=== PATIENT | female | born 1980 ===

== ENCOUNTER → 2020-09-17 10:54 | Outpatient (BNVA) | payer OTHER, SELFPAY | PROVIDERS: PCP Internal Medicine; Referring Provider Internal Medicine; Visit Provider Internal Medicine Endocrinology, Diabetes & Metabolism | DX: Z76.89 Persons encountering health services in other specified circumstances (principal) ==

== ENCOUNTER 2020-09-17 11:42 | Outpatient (REF) | payer OTHER, SELFPAY ==
[2020-09-17 14:22] LABS: Free T4 (Free Thyroxine) 1.02 ng/dL (0.71-1.85); Thyroid Stimulating Hormone 0.65 mIU/mL (0.32-4.0); Vitamin D 25-OH Total 28.7 ng/mL (>30)
== END 2020-09-17 11:43 | disposition home or self-care (01) ==
LOC: HO.10HDL 11:42
PROVIDERS: Visit Provider Internal Medicine Endocrinology, Diabetes & Metabolism
DX: E03.9 Hypothyroidism, unspecified (principal); E55.9 Vitamin D deficiency, unspecified
CPT/HCPCS: 82306; 84439; 84443

== ENCOUNTER 2020-11-17 07:26 | Outpatient (REF) | payer OTHER, SELFPAY ==
[2020-11-17 08:04] LABS: MANUAL DIFF FLAG NO
[2020-11-17 08:10] LABS: Basophils Percent Auto 0.6 % (0-2); Eosinophils Absolute Auto 0.2 X10*3/uL (0.0-0.4); Eosinophils Percent Auto 2.7 % (0-4); Hematocrit 39.2 % (37-47); Hemoglobin 13.8 g/dl (12.0-16.0); Imm Gran Abs Auto 0.04 X10*3/uL (0.00-0.03); Imm Gran Pct Auto 0.6 % (0.0-0.4); Immature Retic Fraction 11.7 % (3.0-15.9); Lymphocytes Absolute Auto 1.6 X10*3/uL (1.2-4.9); Lymphocytes Percent Auto 22.7 % (20-40); Mean Corpuscular HGB Conc 35.2 g/dl (31.0-35.0); Mean Corpuscular Hemoglobin 31.8 pg (27.0-33.0); Mean Corpuscular Volume 90.3 fL (80-98); Mean Platelet Volume 10.3 fL (9.4-12.3); Monocytes Absolute Auto 0.5 X10*3/uL (0.1-1.2); Monocytes Percent Auto 7.3 % (2-11); Neutrophils Absolute Auto 4.6 X10*3/uL (2.0-8.3); Neutrophils Percent Auto 66.1 % (45-73); Platelet Count 295 X10*3/uL (160-400); Red Blood Count 4.34 X10*6/uL (4.20-5.50); Retic HGB Equivalent 36.5 pg (30.0-35.0); Reticulocyte Percent 2.9 % (0.5-1.8); Reticulocytes Absolute 0.127 X10*6/uL (0.026-0.095)
[2020-11-17 08:24] LABS: Alanine Aminotransferase 15 U/L (0-31); Albumin Level 4.2 g/dL (3.5-5.0); Alkaline Phosphatase 56 U/L (39-117); Anion Gap 11 (12-20); Aspartate Amino Transferase 15 U/L (5-31); Bilirubin Total 0.8 mg/dL (0.0-1.0); Blood Urea Nitrogen 16 mg/dL (9-16); Calcium 8.8 mg/dL (8.4-10.2); Carbon Dioxide 28 mmol/L (22-29); Chloride 104 mmol/L (96-108); Cholesterol 166 mg/dL; Estimated Glomerular Filt Rate > 60; Glucose Random 86 mg/dL (60-115); HDL Cholesterol 42 mg/dL; Iron 120 mcg/dL (30-160); LDL Cholesterol Calculated 107 mg/dl; Percent Iron Saturation 31 % (15-50); Potassium 4.5 mmol/l (3.3-5.1); Sodium 138 mmol/L (135-145); Total Iron Binding Capacity 381 mcg/dL (228-428); Total Protein 6.8 g/dL (6.5-8.0); Triglycerides 87 mg/dL; Unsaturated Iron Binding 261 ug/dL
[2020-11-17 08:46] LABS: Ferritin 46 ng/mL (10-250); Vitamin D 25-OH Total 28.2 ng/mL (>30)
[2020-11-17 09:49] LABS: Folate 7.3 ng/mL (> or = 4.0); Vitamin B12 365 pg/mL (200-900)
== END 2020-11-17 07:27 | disposition home or self-care (01) ==
LOC: HO.LAB 07:26
PROVIDERS: Visit Provider Internal Medicine
DX: D50.9 Iron deficiency anemia, unspecified (principal); E78.00 Pure hypercholesterolemia, unspecified; M79.7 Fibromyalgia; B34.9 Viral infection, unspecified
CPT/HCPCS: 36415; 80053; 80061; 82306; 82607; 82728; 82746; 83540; 85025; 85045

== ENCOUNTER 2020-11-24 09:49 | Outpatient (REF) | payer OTHER, SELFPAY ==
--- NOTE | 2020-11-24 09:52 | MM_ITS ---
EXAMINATION: MM SCREENING DIGITAL BREAST TOMOSYNTHESIS, BILATERAL CLINICAL INFORMATION: Screening. Asymptomatic. The lifetime risk of breast cancer based on the Tyrer-Cuzick Model is 9%. COMPARISON: Mammography: 02/14/2018 (baseline) TECHNIQUE: Digital breast tomosynthesis is performed in both the craniocaudal and mediolateral oblique views along with computer-aided detection (CAD). Synthesized 2D images are generated from the tomosynthesis. FINDINGS: There are scattered areas of fibroglandular density (ACR BI-RADS breast composition Category b). There are no significant masses, abnormal calcifications, or other abnormalities. Parenchymal pattern is similar to prior study. There are no significant changes. MM/MM tomosynthesis screening BI IMPRESSION: There are no significant changes from prior study. ASSESSMENT: BI-RADS 1: Negative RECOMMENDATION: Routine annual mammography screening. This patient's information was entered into a reminder system with a target due date for their next mammogram.
== END 2020-11-24 09:50 | disposition home or self-care (01) ==
LOC: HO.MAMMO 09:49
PROVIDERS: PCP Internal Medicine; Visit Provider Internal Medicine
DX: Z12.31 Encounter for screening mammogram for malignant neoplasm of breast (principal)
CPT/HCPCS: 77063; 77067

== ENCOUNTER 2020-11-25 13:37 | Outpatient (REF) | payer OTHER, SELFPAY | END 2020-11-25 13:38 | disposition home or self-care (01) | LOC: HO.LAB 13:37 | PROVIDERS: PCP Internal Medicine; Visit Provider Internal Medicine | DX: Z20.828 Contact with and (suspected) exposure to other viral communicable diseases (principal) | CPT/HCPCS: C9803; U0003 ==

== ENCOUNTER 2021-01-17 11:17 | Outpatient (REF) | payer OTHER, SELFPAY ==
--- NOTE | ~2021-01-17 | XR_ITS ---
EXAMINATION: XR ANKLE, RIGHT XR FOOT, RIGHT CLINICAL INFORMATION: Pain joints right ankle and foot COMPARISON: Radiographs right ankle 01/18/2017 TECHNIQUE: 2 views right ankle, 2 views right foot, and a single combined lateral view of the right ankle and foot are performed. There are a total of 5 views. FINDINGS: The malleoli are intact and the ankle mortise is symmetric. The talar dome shows no osteochondral lesion. There is normal bony mineralization. There is no ankle or subtalar joint narrowing. The retrocalcaneal recess is preserved. There is a moderate posterior calcaneal spur. Prominent posterior process talus again seen with some adjacent spurring superior calcaneus. This may place patient at risk for impingement with plantar flexion. The midfoot and forefoot show no fracture or dislocation or arthropathy. There is small spurring dorsal lateral first metatarsal head without joint narrowing. No erosive changes. There is a hallux valgus, 22 degrees, on these nonweightbearing views. XR/XR foot RT min 3V IMPRESSION: 1. No fracture, dislocation, joint narrowing, or erosive change. 2. Moderate posterior calcaneal spur. 3. Prominent posterior process talus with small adjacent calcaneal spur. This may place patient at risk for impingement with plantar flexion. 4. Mild hallux valgus, 22 degrees ([id number]).
--- NOTE | ~2021-01-17 | XR_ITS ---
EXAMINATION: XR ANKLE, RIGHT XR FOOT, RIGHT CLINICAL INFORMATION: Pain joints right ankle and foot COMPARISON: Radiographs right ankle 01/18/2017 TECHNIQUE: 2 views right ankle, 2 views right foot, and a single combined lateral view of the right ankle and foot are performed. There are a total of 5 views. FINDINGS: The malleoli are intact and the ankle mortise is symmetric. The talar dome shows no osteochondral lesion. There is normal bony mineralization. There is no ankle or subtalar joint narrowing. The retrocalcaneal recess is preserved. There is a moderate posterior calcaneal spur. Prominent posterior process talus again seen with some adjacent spurring superior calcaneus. This may place patient at risk for impingement with plantar flexion. The midfoot and forefoot show no fracture or dislocation or arthropathy. There is small spurring dorsal lateral first metatarsal head without joint narrowing. No erosive changes. There is a hallux valgus, 22 degrees, on these nonweightbearing views. XR/XR ankle RT min 3V IMPRESSION: 1. No fracture, dislocation, joint narrowing, or erosive change. 2. Moderate posterior calcaneal spur. 3. Prominent posterior process talus with small adjacent calcaneal spur. This may place patient at risk for impingement with plantar flexion. 4. Mild hallux valgus, 22 degrees ([id number]).
== END 2021-01-17 11:18 | disposition home or self-care (01) ==
LOC: HO.HMGCX 11:17
PROVIDERS: PCP Internal Medicine; Visit Provider Hospitalist
DX: M25.571 Pain in right ankle and joints of right foot (principal)
CPT/HCPCS: 73610; 73630

== ENCOUNTER 2021-04-01 15:39 | Outpatient (REF) | payer OTHER, SELFPAY ==
[2021-04-01 17:28] LABS: Free T4 (Free Thyroxine) 0.91 ng/dL (0.71-1.85); Thyroid Stimulating Hormone 1.52 uIU/mL (0.32-4.0)
== END 2021-04-01 15:40 | disposition home or self-care (01) ==
LOC: HO.LAB 15:39
PROVIDERS: PCP Internal Medicine; Visit Provider Internal Medicine Endocrinology, Diabetes & Metabolism
DX: E55.9 Vitamin D deficiency, unspecified (principal)
CPT/HCPCS: 36415; 84439; 84443

== ENCOUNTER → 2021-04-04 08:31 | Outpatient (BNVA) | payer OTHER, SELFPAY | PROVIDERS: PCP Internal Medicine; Referring Provider Internal Medicine; Visit Provider Internal Medicine Endocrinology, Diabetes & Metabolism ==

== ENCOUNTER 2021-10-19 08:38 | Outpatient (REF) | payer OTHER, SELFPAY ==
[2021-10-19 08:47] LABS: MANUAL DIFF FLAG NO
[2021-10-19 09:42] LABS: Basophils Percent Auto 0.6 % (0-2); Eosinophils Absolute Auto 0.2 X10*3/uL (0.0-0.4); Eosinophils Percent Auto 2.2 % (0-4); Hematocrit 34.3 % (37.0-47.0); Hemoglobin 11.6 g/dl (12.0-16.0); Imm Gran Abs Auto 0.03 X10*3/uL (0.00-0.03); Imm Gran Pct Auto 0.4 % (0.0-0.4); Immature Retic Fraction 22.4 % (3.0-15.9); Lymphocytes Absolute Auto 1.5 X10*3/uL (1.2-4.9); Lymphocytes Percent Auto 22.5 % (20-40); Mean Corpuscular HGB Conc 33.8 g/dl (31.0-35.0); Mean Corpuscular Hemoglobin 27.2 pg (27.0-33.0); Mean Corpuscular Volume 80.5 fL (80.0-98.0); Mean Platelet Volume 10.8 fL (9.4-12.3); Monocytes Absolute Auto 0.5 X10*3/uL (0.1-1.2); Monocytes Percent Auto 7.2 % (2-11); Neutrophils Absolute Auto 4.6 x10*3/uL (2.0-8.3); Neutrophils Percent Auto 67.1 % (45-73); Platelet Count 336 X10*3/uL (160-400); Red Blood Count 4.26 X10*6/uL (4.20-5.50); Red Cell Distribution Width 15.2 % (11.0-16.0); Reticulocyte Percent 2.5 % (0.5-1.8); Reticulocytes Absolute 0.107 X10*6/uL (0.026-0.095); White Blood Count 6.8 X10*3/uL (4.8-10.8)
[2021-10-19 10:04] LABS: Alanine Aminotransferase 15 U/L (0-31); Albumin Level 4.1 g/dL (3.5-5.0); Alkaline Phosphatase 69 U/L (39-117); Anion Gap 11 (12-20); Aspartate Amino Transferase 13 U/L (5-31); Bilirubin Total 0.2 mg/dL (0.0-1.0); Blood Urea Nitrogen 13 mg/dL (9-16); Calcium 8.6 mg/dL (8.4-10.2); Carbon Dioxide 26 mmol/L (22-29); Chloride 107 mmol/L (96-108); Cholesterol 177 mg/dL; Estimated Glomerular Filt Rate > 60; Glucose Random 86 mg/dL (60-115); HDL Cholesterol 43 mg/dL; Iron 35 mcg/dL (30-160); LDL Cholesterol Calculated 116 mg/dl; Percent Iron Saturation 7 % (15-50); Potassium 4.4 mmol/L (3.3-5.1); Sodium 140 mmol/L (135-145); Total Iron Binding Capacity 494 mcg/dL (228-428); Total Protein 6.6 g/dL (6.5-8.0); Triglycerides 90 mg/dL; Unsaturated Iron Binding 459 ug/dL
[2021-10-19 10:25] LABS: Ferritin 7 ng/mL (10-250); Free T4 (Free Thyroxine) 0.91 ng/dL (0.71-1.85); Thyroid Stimulating Hormone 1.62 uIU/mL (0.32-4.0); Vitamin D 25-OH Total 19.7 ng/mL (>30)
[2021-10-19 11:07] LABS: Erythrocyte Sedimentation Rate 5 MM/HR (0-20)
[2021-10-19 11:16] LABS: Folate 5.5 ng/mL (> or = 4.0); Vitamin B12 329 pg/mL (200-900)
== END 2021-10-19 08:39 | disposition home or self-care (01) ==
LOC: HO.LAB 08:38
PROVIDERS: PCP Internal Medicine; Visit Provider Internal Medicine
DX: E03.8 Other specified hypothyroidism (principal); E06.3 Autoimmune thyroiditis; D50.9 Iron deficiency anemia, unspecified; E78.00 Pure hypercholesterolemia, unspecified
CPT/HCPCS: 36415; 80053; 80061; 82306; 82607; 82728; 82746; 83540; 84439; 84443; 85025; 85045; 85652

== ENCOUNTER 2021-11-06 15:52 | Emergency (ER) | payer OTHER, SELFPAY ==
--- NOTE | ~2021-11-06 | XR_ITS ---
EXAMINATION: XR LUMBOSACRAL SPINE CLINICAL INFORMATION: Pain. No trauma. COMPARISON: 03/14/2018 TECHNIQUE: Three views of the lumbosacral spine. FINDINGS: The visualized lower thoracic and lumbar vertebra have normal alignment. There is chronic minimal anterior wedging and mild anterior vertebral osteophyte formation at T11 and T12. Small anterior vertebral osteophytes are noted at L3-L4 and L4-L5. The lumbar vertebra are normal in height. The lumbar disc spaces are maintained. No evidence of pars interarticularis defects. Sacrum and sacroiliac joints are unremarkable. The soft tissues are normal. XR/XR lumbar spine 2-3V IMPRESSION: * Mild spondylosis of the visualized spine. * Chronic, minimal anterior wedging of the T11 and T12 vertebral bodies. * No acute fractures in the visualized thoracolumbar spine.
[2021-11-06 16:08] VITALS: BP 121/76; PULSE 86; RESP 18; TEMP 36.8; O2SAT 100; BMI 31.7
[2021-11-06 17:51] LABS: Appearance Urine CLEAR; Color Urine YELLOW; Glucose Urine UA NEG (NEG); Leukocyte Esterase Urine NEG (NEG); Nitrite Urine NEG (NEG); Specific Gravity - Urine >= 1.030 (1.005-1.025); Urine Blood NEG (NEG); Urine Ketones NEG (NEG); Urine Protein NEG (NEG-TRACE)
[2021-11-06 17:53] LABS: UPreg QC Valid YES; Urine Pregnancy NEGATIVE (NEGATIVE)
--- NOTE | 2021-11-06 17:58 | ED_ITS ---
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 Patient seen at urgent care on Sunday. She was given meloxicam and Flexeril to take. It was noted that she should return for persistent symptoms for physical therapy evaluation. Patient tells me she does not remember this. She tells me that she is giving the medications and she is taking now with continued pain. She does but she has pain which is in the lower back which radiates to the groin and down the legs. There is no numbness in the groin. There is no bowel or bladder incontinence. She does have some paresthesias in the bilateral lower extremities at times. No fevers or chills. Related Data Home Medications Medication Instructions Recorded Confirmed ascorbic acid (vitamin C) 500 mg 500 mg PO DAILY 09/17/20 11/01/21 tablet [id number]-ptx-[id number]-hrb 2 tab PO DAILY 11/01/21 11/01/21 149-hyalur 500 mg-500 mg-66.7 mg tablet (Nawxelagjbk-Twkdyplbzfs-TVL (with antiox)) Previous Rx's Medication Instructions Recorded Levoxyl 88 mcg tablet 88 mcg PO DAILY 30 Days #30 tab NS 04/04/21 (levothyroxine) cholecalciferol (vitamin D3) 50 50 mcg PO DAILY 30 Days #30 cap 04/04/21 mcg (2,000 unit) capsule cane #1 ea 04/08/21 ferrous sulfate 325 mg (65 mg 325 mg PO DAILY #90 tab 10/24/21 iron) tablet cyclobenzaprine 10 mg tablet 10 mg PO BID #14 tab 11/04/21 meloxicam 15 mg tablet (Mobic) 15 mg PO DAILY #14 tab 11/04/21 lidocaine 5 % topical patch 1 patch TOPICAL DAILY #15 ea 11/06/21 (Lidoderm) oxycodone 5 mg tablet 5 mg PO Q8H PRN #8 tab 11/06/21 Allergies Allergy/AdvReac Type Severity Reaction Status Date / Time No Known Allergies Allergy Verified 11/06/21 18:23 [No Known Allergies*] Review of Systems Review of Systems: Yes all other systems are reviewed and are negative Constitutional: Constitutional: Reports no additional constitutional complaints, Denies body ache(s), Denies chills, Denies fever(s), Denies headache(s) and Denies weakness Eyes: Eyes: Reports no additional eye complaints and Denies change in vision ENT: Reports system reviewed and no additional complaints, except as documented, Denies dizziness, Denies headache(s), Denies nasal congestion, Denies nasal discharge and Denies neck pain Cardiovascular: Cardiovascular: Reports no additional cardiovascular complaints, Denies chest pain, Denies leg edema and Denies dyspnea Respiratory: Respiratory: Reports no additional respiratory complaints, Denies cough and Denies dyspnea Gastrointestinal: Gastrointestinal: Reports no additional gastrointestinal complaints, Denies abdominal pain, Denies diarrhea, Denies nausea and Denies vomiting Genitourinary: Genitourinary: Reports no additional female genitourinary complaints and Denies urinary incontinence Musculoskeletal: Musculoskeletal: Reports no additional musculoskeletal complaints, Reports back pain, Denies arthralgias, Denies joint swelling, Denies neck pain, Denies numbness and Reports tingling Integumentary/Breasts: Skin/Breast: Reports system reviewed and no additional complaints, except as docu and Denies rash Neurologic: Reports system reviewed and no additional complaints, except as documented, Denies Abnormal speech present, Denies dizziness, Denies headache(s), Denies numbness, Reports tingling and Denies weakness PMFSH Past Medical History Attestation statement: The following information was validated with the patient. Source: old records reviewed and nursing notes reviewed Medical History Fibromyalgia Hypothyroidism Obesity (BMI 30-39.9) Vitamin D deficiency Surgical History History of esophagogastroduodenoscopy (EGD) Hx of tonsillectomy Hx of tubal ligation Hx of wisdom tooth extraction S/P LEEP (loop electrosurgical excision procedure) Family History Family History Father Cerebrovascular accident (CVA) Diabetes mellitus Depression Mother Hypothyroidism Osteoporosis Fibromyalgia Hyperlipidemia Hypertension Depression Maternal Aunt Thyroid cancer Maternal Uncle Liver cancer Social History Social History Housing: Apartment Alcohol intake: current Alcohol intake frequency: a few times a week Alcohol type: wine Patient Tobacco Use Status: Former Tobacco user Quit Date: 2001 Tobacco use type: Cigarette e-Cigarette/Vaping Use: Never Used Second Hand Smoke Exposure: No Advance Directives: No Advance Directives Information Provided: No Current occupational status: employed Physical Exam Vital Signs: Vital Signs: Last Vital Signs Temp 98.3 F 11/06/21 16:08 Pulse 86 11/06/21 16:08 Resp 18 11/06/21 16:08 BP 121/76 11/06/21 16:08 Pulse Ox 100 11/06/21 16:08 BMI result Body Mass Index 31.7 Const: General: cooperative, healthy appearing, comfortable and no acute distress Orientation/consciousness: patient oriented x3 Limitations: no limitations HENMT: Head: Yes normal to inspection Ears: hearing grossly normal bilaterally General nose exam: Normal external nose present Face and sinus: Yes normal facial exam Mouth: Normal oral and palatal mucosa present Throat: Yes posterior oropharynx normal Eyes: General: appearance normal, both eyes and all related structures Pupils: Equal, round and reactive pupils present Neck: Neck: Yes normal visual inspection Chest: Chest palpation & inspection: normal inspection of the chest Resp: Effort & Inspection: normal respiratory effort Auscultation: clear to auscultation bilaterally Cardio: Rate: regular rate Rhythm: regular rhythm Peripheral pulses: Peripheral pulses 2+ throughout GI: Inspection: Yes normal to inspection Palpation (GI): Soft to palpation and nontender Auscultation: normal bowel sounds : General: Yes no CVA tenderness Back/Spine/Pelvis: Other: Tenderness to the midline lumbar spine with tenderness to the bilateral lumbar soft tissues. No step-offs or deformities Back: no CVA tenderness Thoracic/Lumbar Spine: thoracic and lumbar spine normal to inspection Skin: General skin exam: no rashes or lesions noted Neuro: General: patient oriented x3, no focal motor deficits and normal sensation to monofilament Cranial nerves: Yes CN's II-XII intact bilaterally, Yes Equal, round and reactive pupils present, Yes Bilaterally intact EOM present, Yes Nystagmus not present, Yes Normal facial strength present and Yes Midline tongue present Cognition (Neuro): normal cognition Speech: No Abnormal speech present Gait exam (Neuro): Normal gait present Motor exam (neuro): 5/5 motor strength present throughout Sensory Exam: Normal double simultaneous stimulation for sensation Deep tendon reflexes (DTR's): Right patellar reflex intensity grade: 2+ and Left patellar reflex intensity grade: 2+ Extrem: General: Yes normal to inspection Course Course Course Narrative: 41-year-old female here with reports of low back pain with radiation to the bilateral groin and down her leg since Sunday. No known injury or trauma. No saddle anesthesia or incontinence. No fevers or chills. Bone exam shows tenderness to the midline lumbar spine as well as tenderness to bilateral soft tissue area. There are no neurological deficits. Will check x-ray, provide analgesia and reassess 1844-X-rays show *? Mild spondylosis of the visualized spine. *? Chronic, minimal anterior wedging of the T11 and T12 vertebral bodies. *? No acute fractures in the visualized thoracolumbar spine. -likely radiculopathy from thoracic or lumbar spine. Patient feels improved after receiving Toradol. Recommended follow-up outpatient with primary care doctor for MRI. Recommended continuing to take meloxicam and Flexeril. Will add low-dose oxycodone and Lidoderm patches. Reviewed worrisome signs and symptoms when to return to the emergency department. Comfortable discharge home. MDM - Back Pain/Injury MDM Narrative Medical decision making narrative: Less likely cauda quinine with normal neurological exam and no reports of incontinence or saddle anesthesia Less likely epidural abscess with no reports of fever, no immunocompromised state Medical Records Attestation: I reviewed the patient's medical records. Lab Data Attestation: I reviewed the patient's lab results. Labs: Lab Results 11/06/21 11/06/21 Range/Units 17:43 17:43 Urine Color YELLOW Urine Appearance CLEAR Urine pH 6.0 (5.0-8.0) Ur Specific [place] >= 1.030 H (1.005-1.025) Urine Protein NEG (NEG-TRACE) MG/DL Urine Glucose (UA) NEG (NEG) MG/DL Urine Ketones NEG (NEG) MG/DL Urine Blood NEG (NEG) Urine Nitrite NEG (NEG) Ur Leukocyte Esterase NEG (NEG) Urine Test NEGATIVE (NEGATIVE) Imaging Data lumbar x-ray: Attestation: I personally reviewed and interpreted this imaging study as follows: Radiologist's impression: FINDINGS: The visualized lower thoracic and lumbar vertebra have normal alignment. There is chronic minimal anterior wedging and mild anterior vertebral osteophyte formation at T11 and T12. Small anterior vertebral osteophytes are noted at L3-L4 and L4-L5. The lumbar vertebra are normal in height. The lumbar disc spaces are maintained. No evidence of pars interarticularis defects. Sacrum and sacroiliac joints are unremarkable. The soft tissues are normal. XR/XR lumbar spine 2-3V IMPRESSION: *? Mild spondylosis of the visualized spine. *? Chronic, minimal anterior wedging of the T11 and T12 vertebral bodies. *? No acute fractures in the visualized thoracolumbar spine. Discharge Plan Discharge Clinical Impression: Radiculopathy of thoracic region Patient Disposition: Home, Self-Care Instructions: Back Pain (ED) Additional Instructions: Heat to the area Gentle stretching Follow-up with your PCP for outpatient MRI as discussed. Your x-rays show arthritis and wedging of your thoracic spine which could be causing some pinching of the nerves Return to the ED for incontinence, numbness in the groin, high fever Continue meloxicam, flexeril. I have add a low dose narcotic and medicated patch. Prescriptions: New oxycodone 5 mg tablet 5 mg PO Q8H PRN (Reason: pain) Qty: 8 RF: 0 lidocaine [Lidoderm] 5 % adhesive patch,medicated 1 patch topical DAILY Qty: 15 RF: 0 No Action ferrous sulfate 325 mg (65 mg iron) tablet 325 mg PO DAILY Qty: 90 RF: 2 [id number] [Ftmtju-Wltfx-AYR (with antiox)] 500-500-66.7 mg Tablet 2 tab PO DAILY RF: 0 (DME) cane Device See Rx Instructions .ROUTE .MEDSUPPLY Qty: 1 RF: 0 meloxicam [Mobic] 15 mg tablet 15 mg PO DAILY Qty: 14 RF: 0 cyclobenzaprine 10 mg tablet 10 mg PO BID Qty: 14 RF: 0 levothyroxine [Levoxyl] 88 mcg tablet 88 mcg PO DAILY 30 Days Qty: 30 RF: 12 cholecalciferol (vitamin D3) 50 mcg (2,000 unit) capsule 50 mcg PO DAILY 30 Days Qty: 30 RF: 12 ascorbic acid (vitamin C) 500 mg tablet 500 mg PO DAILY RF: 0 Referrals: Po,Michael Mcneil MD [Primary Care Provider] - 2 days Stand Alone Forms: Work/School Release
[2021-11-06] MEDS: Ketorolac Tromethamine 60 MG/2 ML VIAL IM (18:17)
[2021-11-06 18:57] VITALS: BP 118/80; PULSE 82; RESP 18; TEMP 36.6; O2SAT 99
== END 2021-11-06 19:07 | disposition home or self-care (01) ==
PROVIDERS: Emergency Provider Internal Medicine; PCP Internal Medicine
DX: M54.14 Radiculopathy, thoracic region (principal); E66.9 Obesity, unspecified
CPT/HCPCS: 72100; 81003; 81025; 96372; 99284; J1885

== ENCOUNTER 2021-12-08 15:59 | Outpatient (REF) | payer OTHER, SELFPAY ==
--- NOTE | ~2021-12-08 | MM_ITS ---
EXAMINATION: MM SCREENING DIGITAL BREAST TOMOSYNTHESIS, BILATERAL CLINICAL INFORMATION: Screening. Asymptomatic. The lifetime risk of breast cancer based on the Tyrer-Cuzick Model is 8.6%. COMPARISON: Mammography: November 24, 2020 and February 14, 2018 TECHNIQUE: Digital breast tomosynthesis is performed in both the craniocaudal and mediolateral oblique views along with computer-aided detection (CAD). Synthesized 2D images are generated from the tomosynthesis. FINDINGS: There are scattered areas of fibroglandular density (ACR BI-RADS breast composition Category b). There are no significant masses, abnormal calcifications, or other abnormalities. MM/MM tomosynthesis screening BI IMPRESSION: There are no significant changes from prior study. ASSESSMENT: BI-RADS 1: Negative RECOMMENDATION: Routine annual mammography screening. This patient's information was entered into a reminder system with a target due date for their next mammogram.
== END 2021-12-08 16:00 | disposition home or self-care (01) ==
LOC: HO.MAMMO 15:59
PROVIDERS: PCP Internal Medicine; Visit Provider Internal Medicine
DX: Z12.31 Encounter for screening mammogram for malignant neoplasm of breast (principal)
CPT/HCPCS: 77063; 77067

== ENCOUNTER 2022-01-09 15:00 | Outpatient (RCR) | payer OTHER, SELFPAY ==
--- NOTE | 2021-11-21 15:19 | MHC.PT.EP ---
[facility] [place] Office [place] Office [place] Office [address] Alka Hoffmann [address] [phone] F: [phone] F: [phone] F: [phone] F: [phone] Physical Therapy Plan of Care Date of Evaluation: Date of Surgery: Diagnosis: LBP Assessment: 41 YO FEMALE REF TO PT W EXACERBATION OF LBP- H/O OA IN MAI HIPS (Lt > Rt) AND H/O FIBROMYALGIA; RECENT XRAYS REVEALED IMPRESSION: * Mild spondylosis of the visualized spine.* Chronic, minimal anterior wedging of the T11 and T12 vertebral bodies. * No acute fractures in the visualized thoracolumbar spine. 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 FUNCTIONALLY, SHE IS LIMTED W WALKING, TRANSITIONAL MOVEMENTS- REG ADLs TAKE HER MUCH LONGER DUE TO PAIN AND SOFT TISSUE GUARDING- Pt IS A VERY GOOD CANDIDATE FOR SKILLED PT TO ADDRESS THE ABOVE FINDINGS AND MAX HER FUNCTIONAL INDEP Frequency and Duration: The patient will be seen 2 x WK x 5 WKS Short Term Goals: Pt'S LBP DECR TO 2-3/10 W REG ADLS IN 2 WKS Pt DEMON WFL FUNCT SQUAT AND WFL TRUNK AROM IN 2 WKS IMPROVE MAI HIP FLEXIB IN 2 WKS Lining [place]eller Goals: Pt INDEP W HEP AND SELF-SX MGMT STRATEGIES IN 5 WKS Pt RESUME REG ADLs/ RTW AND EXER EVIDENT W IMPROVED OSWESTRY SCORE BY 8 POINTS ( AT EVAL 26/45) IN 5 WKS Pt DEMON 3:3 SIMUL ADLs W PROPER BODY MECH IN 5 WKS Treatment Plan: Modalities to reduce pain, spasms and effusion. Manual therapy to restore motion and function. Therapeutic exercise to improve strength and flexibility. Neuromuscular re-education for posture and balance. Therapeutic activities to return to functional activities of daily living. Electronically signed by: Suri Alexsandra,PT Please sign and return to therapist. Thank you for your referral.
== END 2022-04-11 09:41 | disposition home or self-care (01) ==
LOC: HO.PT 15:00
PROVIDERS: PCP Internal Medicine; Visit Provider Nurse Practitioner Family
DX: M54.50 Low back pain, unspecified (principal)
CPT/HCPCS: 97110; 97140; 97162

== ENCOUNTER 2022-02-07 17:54 | Outpatient (REF) | payer OTHER, SELFPAY ==
--- NOTE | ~2022-02-07 | MR_ITS ---
EXAMINATION: MR THORACIC SPINE AND LUMBAR SPINE WITHOUT CONTRAST CLINICAL INFORMATION: Low back pain. Unspecified. COMPARISON: None TECHNIQUE: Multiplanar multisequence MRI of the thoracic and lumbar spine was performed without contrast. FINDINGS: Thoracic spine MRI: The thoracic vertebral bodies maintain normal heights and alignment. There is prominent superior endplate Schmorl's node at T12 with focal indentation of the endplate but no associated marrow edema. Mild multilevel intervertebral disc height loss is noted. There is moderate disc height loss at T11-T12. There is no bone marrow edema. The thoracic cord signal appears normal. T3-T4: Right subarticular protrusion. No spinal canal or neural foraminal stenosis. T11-T12: Mild disc bulging with moderate facet arthropathy. Mild right neural foraminal stenosis. The extraspinal soft tissues appear normal. Lumbar spine: The lumbar vertebral bodies maintain normal heights and alignment. No significant disc height loss is seen. The bone marrow signal appears normal. The distal spinal cord appears normal. The conus medullaris terminates normally at the T12-L1 level. The visualized paraspinal muscles and intra-abdominal and pelvic contents are within normal limits. L2-L3: Mild disc bulging. No spinal canal or neural foraminal stenosis. L3-L4: Disc bulging with mild facet arthropathy. Mild left more than right neural foraminal stenosis. No spinal canal stenosis. L4-L5: Mild disc bulging and mild facet arthropathy. No spinal canal or neural foraminal stenosis. L5-S1: No posterior disc abnormality. Moderate facet arthropathy. No spinal canal or neural foraminal stenosis. MR/MR thoracic spine wo con IMPRESSION: Thoracic spine: Small right subarticular protrusion at T3-T4 but no stenosis. Prominent superior endplate Schmorl's node at T12. No significant narrowing of the spinal canal or neural foramina. No cord signal abnormality. Lumbar spine: Mild degenerative spondylosis. No significant narrowing of the spinal canal. No moderate or severe neural foraminal stenosis is seen.
== END 2022-02-07 17:55 | disposition home or self-care (01) ==
LOC: HO.MRI 17:54
PROVIDERS: PCP Internal Medicine; Visit Provider Nurse Practitioner Family
DX: M54.50 Low back pain, unspecified (principal)
CPT/HCPCS: 72146; 72148

== ENCOUNTER → 2022-02-10 14:44 | Outpatient (BNVA) | payer OTHER, SELFPAY | PROVIDERS: PCP Internal Medicine; Visit Provider Nurse Practitioner Family | DX: Z13.89 Encounter for screening for other disorder (principal) ==

== ENCOUNTER → 2022-03-24 14:52 | Outpatient (BNVA) | payer OTHER, SELFPAY | PROVIDERS: PCP Internal Medicine; Visit Provider Nurse Practitioner Family | DX: Z13.89 Encounter for screening for other disorder (principal) ==

== ENCOUNTER 2022-04-17 08:19 | Emergency (ER) | payer OTHER, SELFPAY ==
--- NOTE | ~2022-04-17 | XR_ITS ---
EXAMINATION: XR LUMBOSACRAL SPINE CLINICAL INFORMATION: Back pain COMPARISON: 11/06/2021 TECHNIQUE: Three views of the lumbosacral spine. FINDINGS: Normal lordosis of the lumbar spine. Again demonstrated is mild anterior wedging of T11 and T12, similar to the prior study. Multilevel degenerative changes including anterior osteophyte formation at T11, T12, L1, L3-L4, and L4-L5. There is mild facet arthropathy at L5-S1. No spondylolysis or spondylolisthesis. The sacroiliac joints are intact. XR/XR lumbar spine 2-3V IMPRESSION: Degenerative changes of the lumbar spine, similar in appearance the prior study. Chronic appearing anterior wedging of T11 and T12 is also stable since the prior study. No acute fracture or dislocation.
--- NOTE | ~2022-04-17 | XR_ITS ---
EXAMINATION: XR HIP, LEFT CLINICAL INFORMATION: Fall and hip pain COMPARISON: 03/14/2018 TECHNIQUE: Two views of the left hip. FINDINGS: There is no acute fracture or dislocation. Again demonstrated is narrowing of the left hip joint with associated hypertrophic changes of the acetabulum and femoral head. Subchondral cystic changes again demonstrated in the femoral head. There are calcifications of the tendons around the hip. XR/XR hip LT min 2V IMPRESSION: No acute bony abnormality of the left hip. Degenerative changes are stable to slightly increased since the prior study.
--- NOTE | ~2022-04-17 | CT_ITS ---
EXAMINATION: CT BRAIN AND CT CERVICAL SPINE WITHOUT CONTRAST. CLINICAL INFORMATION: Fall and head injury. COMPARISON: None TECHNIQUE: 5 mm thin axial and reformatted 2 mm thin sagittal and coronal images of brain were obtained. Axial 3 mm thin and reformatted 2 mm thin sagittal and coronal images of cervical spine were obtained. DL 1522 FINDINGS: BRAIN: There is no acute intra-axial, extra-axial bleed, masses, collection or midline shift there is no acute infarction in evolution. No edema. The santillan to white matter differentiation is maintained normal. There is mild asymmetric appearing lateral ventricles but no enlargement seen. Bone windows reveal no calvarial abnormality. Bilateral paranasal sinuses and mastoid air cells are well-aerated without mucosal polyp versus retention cyst left maxillary sinus.. There is no scalp soft tissue abnormality. CERVICAL SPINE: There is mild straightening of cervical lordosis. The vertebral heights, alignment and disc heights are normal. There is mild ventral and posterior spondylosis C3-C4, C4-C5, C5-C6 and C6-C7 disc levels. The craniovertebral junction and the C1-C2 alignment is normal. No visible acute fracture, dislocation or subluxation seen. The prevertebral and paravertebral soft tissues are normal. CT/CT cervical spine wo con IMPRESSION: No acute intracranial process seen. There are degenerative disc changes with ventral and posterior spondylosis throughout cervical spine. No visible acute fracture, dislocation or lytic process seen.
--- NOTE | ~2022-04-17 | CT_ITS ---
EXAMINATION: CT BRAIN AND CT CERVICAL SPINE WITHOUT CONTRAST. CLINICAL INFORMATION: Fall and head injury. COMPARISON: None TECHNIQUE: 5 mm thin axial and reformatted 2 mm thin sagittal and coronal images of brain were obtained. Axial 3 mm thin and reformatted 2 mm thin sagittal and coronal images of cervical spine were obtained. DL 1522 FINDINGS: BRAIN: There is no acute intra-axial, extra-axial bleed, masses, collection or midline shift there is no acute infarction in evolution. No edema. The santillan to white matter differentiation is maintained normal. There is mild asymmetric appearing lateral ventricles but no enlargement seen. Bone windows reveal no calvarial abnormality. Bilateral paranasal sinuses and mastoid air cells are well-aerated without mucosal polyp versus retention cyst left maxillary sinus.. There is no scalp soft tissue abnormality. CERVICAL SPINE: There is mild straightening of cervical lordosis. The vertebral heights, alignment and disc heights are normal. There is mild ventral and posterior spondylosis C3-C4, C4-C5, C5-C6 and C6-C7 disc levels. The craniovertebral junction and the C1-C2 alignment is normal. No visible acute fracture, dislocation or subluxation seen. The prevertebral and paravertebral soft tissues are normal. CT/CT head/brain wo con IMPRESSION: No acute intracranial process seen. There are degenerative disc changes with ventral and posterior spondylosis throughout cervical spine. No visible acute fracture, dislocation or lytic process seen.
[2022-04-17 08:32] VITALS: BP 121/78; PULSE 81; RESP 18; TEMP 37; O2SAT 98; BMI 30.9
--- NOTE | 2022-04-17 11:04 | ED_ITS ---
HPI - Fall General Chief Complaint: Fall Stated Complaint: fall at home Time Seen by Provider: 04/17/22 11:01 Source: patient and family () Mode of arrival: ambulatory Limitations: no limitations History of Present Illness HPI Narrative: 41-year-old female who slipped and fell 4 steps of stairs patient fell backward hit her head neck, no LOC, patient is complaining of neck pain, low back pain, left hip pain. Fell 2:30 am. Able to ambulate with difficulties. Related Data Home Medications Medication Instructions Recorded Confirmed ascorbic acid (vitamin C) 500 mg 500 mg PO DAILY 09/17/20 03/24/22 tablet Previous Rx's Medication Instructions Recorded cholecalciferol (vitamin D3) 50 50 mcg PO DAILY 30 Days #30 cap 04/04/21 mcg (2,000 unit) capsule cane #1 ea 04/08/21 ferrous sulfate 325 mg (65 mg 325 mg PO DAILY #90 tab 10/24/21 iron) tablet lidocaine 5 % topical patch 1 patch TOPICAL DAILY #15 ea 11/06/21 (Lidoderm) diclofenac sodium 1 % topical gel 2 g TOPICAL QID PRN 10 Days #100 g 11/10/21 (Arthritis Pain (diclofenac)) ondansetron HCl 4 mg tablet 4 mg PO Q12H PRN #10 tab 11/10/21 (Zofran) tizanidine 2 mg tablet 2 mg PO Q8H PRN #15 tab 01/25/22 meloxicam 15 mg tablet (Mobic) 15 mg PO DAILY #30 tab 01/27/22 Levoxyl 88 mcg tablet 88 mcg PO DAILY 30 Days #30 tab NS 04/14/22 (levothyroxine) ibuprofen 800 mg tablet 800 mg PO Q8H PRN #30 tab 04/17/22 Allergies Allergy/AdvReac Type Severity Reaction Status Date / Time No Known Allergies Allergy Verified 03/24/22 15:00 [No Known Allergies*] Review of Systems Review of Systems: All other systems are reviewed and are negative Constitutional: Reports as per HPI and Reports no additional constitutional complaints Eyes: Reports as per HPI and Reports no additional eye complaints Reports system reviewed and no additional complaints, except as documented Cardiovascular: Reports as per HPI and Reports no additional cardiovascular complaints Respiratory: Reports as per HPI and Reports no additional respiratory complaints Gastrointestinal: Reports as per HPI and Reports no additional gastrointestinal complaints Genitourinary: Reports no additional female genitourinary complaints Musculoskeletal: Reports no additional musculoskeletal complaints Skin/Breast: Reports system reviewed and no additional complaints, except as docu Psychiatric: Reports no additional psychiatric complaints Endocrine: Reports no additional endocrine complaints Hematologic/Lymphatic: Reports no additional hematologic/lymphatic complaints Allergic/Immunologic: Reports no additional allergic/immunologic complaints Reports system reviewed and no additional complaints, except as documented and Reports Abnormal speech present [facility] Past Medical History Medical History Fibromyalgia Hypothyroidism Obesity (BMI 30-39.9) Vitamin D deficiency Surgical History History of esophagogastroduodenoscopy (EGD) Hx of tonsillectomy Hx of tubal ligation Hx of wisdom tooth extraction S/P LEEP (loop electrosurgical excision procedure) Family History Family History Father Cerebrovascular accident (CVA) Diabetes mellitus Depression Mental health disorder Mother Hypothyroidism Osteoporosis Fibromyalgia Hyperlipidemia Hypertension Depression Mental health disorder Maternal Aunt Thyroid cancer Maternal Uncle Liver cancer Social History Social History Housing: Apartment Alcohol intake: current Alcohol intake frequency: a few times a week Alcohol type: wine Patient Tobacco Use Status: Former Tobacco user Quit Date: 2001 Tobacco use type: Cigarette e-Cigarette/Vaping Use: Never Used Second Hand Smoke Exposure: No Advance Directives: No Advance Directives Information Provided: No Current occupational status: employed Physical Exam Vital Signs: Vital Signs: Last Vital Signs Temp 96.4 F L 04/17/22 12:51 Pulse 68 04/17/22 12:51 Resp 16 04/17/22 12:51 BP 112/67 04/17/22 12:51 Pulse Ox 98 04/17/22 12:51 BMI result Body Mass Index 30.9 Vital signs have been reviewed as appeared to be correct. Blood pressure normal. Heart rate normal. Respiration rate normal. Temperature normal. Oxygen saturation normal. Appearance: Alert. Oriented X3. No acute distress. Head: Normal external exam. Normocephalic. Atraumatic. No Daugherty signs noted. No raccoon eyes noted Eyes: PERRLA. EOMI. Conjunctiva and sclera normal. Eyelids normal. ENT: TM's Normal. Pharynx normal. Uvula midline. Moist mucous membranes. No trismus noted. Midline tenderness, no step-off, no deformity, no hematoma. Neck: Normal inspection. Neck supple. FROM. No adenopathy. Thyroid Normal. No meningeal signs. No neck mass noted. CVS: Normal heart rate and rhythm. Heart sound normal. No murmurs noted. Pulses normal throughout. Respiratory: No respiratory distress. Painless inspiration. Breath sounds normal. No wheezes/rales/rhonchi noted. Chest nontender. No accessory muscle usage noted or decreased air movement noted. Abdomen: Soft and nontender. Bowel sounds normal in all 4 quadrants. No distention noted. No organomegaly noted. No visible injury noted. Back: Midline tenderness, no step-off, no hematoma, no deformity. Skin: Skin warm and dry. Normal skin color. Normal skin turgor. No rashes/lesions/lacerations noted. Extremities: Left hip tenderness, no step-off, no deformity, no shortening, no internal rotation. Neuro: Oriented X 3. Cranial nerve exam: II-XII are grossly intact No motor deficit. No sensory deficit. Reflexes normal. Course Course Course Narrative: Assessment and plan. 41-year-old female status post mechanical fall at home complaining of left hip pain and lower back pain and head and neck pain. Radiographic study are all unremarkable with no acute fracture. As discussed with the patient discharge home/Rest/NSAIDs/heating pad. MDM - Fall Imaging Data Head/C-spine CT: Attestation: I personally reviewed and interpreted this imaging study as follows: Radiologist's impression: No acute intracranial process seen. ? There are degenerative disc changes with ventral and posterior spondylosis throughout cervical spine. No visible acute fracture, dislocation or lytic process seen.? Left hip x-ray: Attestation: I personally reviewed and interpreted this imaging study as follows: Radiologist's impression: No acute bony abnormality of the left hip. Degenerative changes are stable to slightly increased since the prior study. Lumbar spine x-ray: Attestation: I personally reviewed and interpreted this imaging study as follows: Radiologist's impression: Degenerative changes of the lumbar spine, similar in appearance the prior study. ? Chronic appearing anterior wedging of T11 and T12 is also stable since the prior study. ? Discharge Plan Discharge Clinical Impression: Accident due to mechanical fall without injury, Closed head injury, Contusion of hip, left, Contusion Patient Disposition: Home, Self-Care Instructions: Contusion in Adults (ED) Prescriptions: New ibuprofen 800 mg tablet 800 mg PO Q8H PRN (Reason: pain) Qty: 30 0RF No Action ferrous sulfate 325 mg (65 mg iron) tablet 325 mg PO DAILY Qty: 90 2RF meloxicam [Mobic] 15 mg tablet 15 mg PO DAILY Qty: 30 0RF levothyroxine [Levoxyl] 88 mcg tablet 88 mcg PO DAILY 30 Days Qty: 30 1RF lidocaine [Lidoderm] 5 % adhesive patch,medicated 1 patch topical DAILY Qty: 15 0RF Rx Instructions: leave on most painful area for up to 12 hrs (DME) cane Device See Rx Instructions .ROUTE .MEDSUPPLY Qty: 1 0RF Rx Instructions: As directed diclofenac sodium [Arthritis Pain (diclofenac)] 1 % gel 2 g topical QID PRN (Reason: pain) 10 Days Qty: 100 0RF Rx Instructions: apply to single elbow, wrist or hand; for hand includes palm/fingers/back of hand ondansetron HCl [Zofran] 4 mg tablet 4 mg PO Q12H PRN (Reason: nausea and vomiting) Qty: 10 0RF tizanidine 2 mg tablet 2 mg PO Q8H PRN (Reason: muscle spasticity) Qty: 15 0RF cholecalciferol (vitamin D3) 50 mcg (2,000 unit) capsule 50 mcg PO DAILY 30 Days Qty: 30 12RF ascorbic acid (vitamin C) 500 mg tablet 500 mg PO DAILY 0RF Referrals: Po,Michael Mcneil MD [Primary Care Provider] - Stand Alone Forms: Work/School Release
[2022-04-17] MEDS: oxyCODONE HCl Immed Release 5 MG TABLET PO (11:51)
[2022-04-17] MEDS: Ibuprofen 600 MG TABLET PO (11:51)
[2022-04-17 12:51] VITALS: BP 112/67; PULSE 68; RESP 16; TEMP 35.8; O2SAT 98
== END 2022-04-17 13:51 | disposition home or self-care (01) ==
PROVIDERS: Emergency Provider Emergency Medicine; PCP Internal Medicine
DX: S09.90XA Unspecified injury of head, initial encounter (principal); S70.02XA Contusion of left hip, initial encounter; S30.0XXA Contusion of lower back and pelvis, initial encounter; W10.8XXA Fall (on) (from) other stairs and steps, initial encounter; Y93.89 Activity, other specified; Y92.018 Other place in single-family (private) house as the place of occurrence of the external cause; Y99.8 Other external cause status
CPT/HCPCS: 70450; 72100; 72125; 73502; 99284

== ENCOUNTER 2022-05-12 09:48 | Outpatient (REF) | payer OTHER, SELFPAY ==
[2022-05-12 11:13] LABS: Free T4 (Free Thyroxine) 1.01 ng/dL (0.71-1.85); Thyroid Stimulating Hormone 0.97 uIU/mL (0.32-4.0)
== END 2022-05-12 09:49 | disposition home or self-care (01) ==
LOC: HO.LAB 09:48
PROVIDERS: PCP Internal Medicine; Visit Provider Internal Medicine Endocrinology, Diabetes & Metabolism
DX: E03.8 Other specified hypothyroidism (principal); E06.3 Autoimmune thyroiditis
CPT/HCPCS: 36415; 84439; 84443

== ENCOUNTER 2022-06-16 06:56 | Outpatient (REF) | payer OTHER, SELFPAY ==
[2022-06-16 07:04] LABS: MANUAL DIFF FLAG NO
[2022-06-16 07:53] LABS: Basophils Percent Auto 0.5 % (0-2); Eosinophils Absolute Auto 0.1 X10*3/uL (0.0-0.4); Hematocrit 38.2 % (37.0-47.0); Hemoglobin 12.9 g/dl (12.0-16.0); Imm Gran Abs Auto 0.03 X10*3/uL (0.00-0.03); Imm Gran Pct Auto 0.5 % (0.0-0.4); Lymphocytes Absolute Auto 1.4 X10*3/uL (1.2-4.9); Lymphocytes Percent Auto 21.7 % (20-40); Mean Corpuscular HGB Conc 33.8 g/dl (31.0-35.0); Mean Corpuscular Hemoglobin 30.4 pg (27.0-33.0); Mean Corpuscular Volume 90.1 fL (80.0-98.0); Mean Platelet Volume 10.2 fL (9.4-12.3); Monocytes Absolute Auto 0.6 X10*3/uL (0.1-1.2); Monocytes Percent Auto 8.9 % (2-11); Neutrophils Absolute Auto 4.2 x10*3/uL (2.0-8.3); Neutrophils Percent Auto 66.4 % (45-73); Platelet Count 341 X10*3/uL (160-400); Red Blood Count 4.24 X10*6/uL (4.20-5.50); Red Cell Distribution Width 14.7 % (11.0-16.0); White Blood Count 6.4 X10*3/uL (4.8-10.8)
[2022-06-16 08:03] LABS: Appearance Urine HAZY; Color Urine YELLOW; Glucose Urine UA NEG (NEG); Leukocyte Esterase Urine NEG (NEG); Nitrite Urine NEG (NEG); Specific Gravity - Urine 1.025 (1.005-1.025); Urine Blood NEG (NEG); Urine Ketones NEG (NEG); Urine Protein NEG (NEG-TRACE)
[2022-06-16 08:11] LABS: Mucus Urine 2+ /LPF; RBC Urine 0-2 /HPF (0); Squamous Epithelial Cell Urine 1+ /LPF; WBC Urine 0 /HPF (0-4)
[2022-06-16 08:18] LABS: Alanine Aminotransferase 20 U/L (0-31); Albumin Level 4.3 g/dL (3.5-5.0); Alkaline Phosphatase 70 U/L (39-117); Anion Gap 13 (12-20); Aspartate Amino Transferase 17 U/L (5-31); Bilirubin Total 0.4 mg/dL (0.0-1.0); Blood Urea Nitrogen 14 mg/dL (9-16); Calcium 8.9 mg/dL (8.4-10.2); Carbon Dioxide 26 mmol/L (22-29); Chloride 105 mmol/L (96-108); Cholesterol 175 mg/dL; Estimated Glomerular Filt Rate > 60; Glucose Random 83 mg/dL (60-115); HDL Cholesterol 40 mg/dL; LDL Cholesterol Calculated 117 mg/dl; Sodium 139 mmol/L (135-145); Total Protein 6.8 g/dL (6.5-8.0); Triglycerides 93 mg/dL
[2022-06-16 08:41] LABS: Free T4 (Free Thyroxine) 0.94 ng/dL (0.71-1.85); Thyroid Stimulating Hormone 1.95 uIU/mL (0.32-4.0); Vitamin D 25-OH Total 25.9 ng/mL (>30)
[2022-06-16 11:13] LABS: Folate 6.7 ng/mL (> or = 4.0); Vitamin B12 313 pg/mL (200-900)
== END 2022-06-16 06:57 | disposition home or self-care (01) ==
LOC: HO.LAB 06:56
PROVIDERS: PCP Internal Medicine; Visit Provider Internal Medicine
DX: E03.8 Other specified hypothyroidism (principal); E06.3 Autoimmune thyroiditis; E78.00 Pure hypercholesterolemia, unspecified
CPT/HCPCS: 36415; 80053; 80061; 81001; 82306; 82607; 82746; 84439; 84443; 85025

== ENCOUNTER 2022-08-27 11:57 | Emergency (ER) | payer OTHER, SELFPAY ==
--- NOTE | ~2022-08-27 | XR_ITS ---
EXAMINATION: XR KNEE, LEFT CLINICAL INFORMATION: Left knee pain. COMPARISON: None TECHNIQUE: Four views of the left knee. FINDINGS: Minimal patellofemoral degenerative joint changes are seen. The femoral tibial joint spaces are unremarkable. No acute fracture or dislocation. A small suprapatellar joint effusion is seen. The soft tissues are unremarkable. XR/XR knee LT 4V IMPRESSION: Small suprapatellar joint effusion and minimal patellofemoral degenerative joint changes without definitive acute abnormality.
[2022-08-27 11:58] VITALS: BP 108/75; PULSE 77; RESP 16; TEMP 36.6; O2SAT 99; BMI 30.7
--- OUTSIDE RECORDS SUMMARY | 2022-08-27 12:28 | XMS_ITS | Continuity of Care Document ---
:1980 Author Organization [employer] Address [address] [place] [id number] Care Team Providers Name Role Phone Po Michael RHODES Primary Care Physician Encounter [facility] Date(s): 11/10/21 - 11/10/[address] [address]- Discharge Disposition: A-D/C Walkout Attending Physician: Not on Staff, Attending MD Admitting Physician: Not on Staff, Admitting MD Referring Physician: Not on Staff, Referring MD Allergies, Adverse Reactions, Alerts Substance Reaction Severity Status NKA Active Medications Cymbalta 60 mg oral enteric coated capsule 1 capsule = 60 mg, By Mouth, Daily, 0 Refills, Maintenance, 01/24/18 11:47:36 Start Date: 01/24/18 Status: Orderedibuprofen 800 mg oral tablet 800 mg, 1, tablet, By Mouth, 3 times a day, Refills 0, Maintenance, 01/24/18 11:47:48 Start Date: 01/24/18 Status: Orderedlevothyroxine 0.075 mg oral tablet 0 Refills, Maintenance, 01/24/18 11:47:21 Start Date: 01/24/18 Status: Ordered Vital Signs Most recent to oldest [Reference Range]: 1 2 Oxygen Saturation [94-100 %] 100 % 100 % (11/10/21 9:54 AM) (11/10/21 9:49 AM) Pulse Rate [55-90 bpm] 78 bpm 110 bpm (11/10/21 9:54 AM) *H* (11/10/21 9:49 AM) Blood Pressure [90-138/55-84 mm Hg] 127/79 mm Hg (11/10/21 9:54 AM) Respiratory Rate [16-30 br/min] 16 br/min (11/10/21 9:54 AM) Temperature [96.8-100.4 DegF] 98.3 DegF (11/10/21 9:54 AM) Temperature Route Oral (11/10/21 9:54 AM) Social History Social History Type Response Smoking Status Former smoker entered on: 01/24/18 Sex
--- OUTSIDE RECORDS SUMMARY | 2022-08-27 12:28 | XMS_ITS ---
:1980 Author Care Team Providers Name Role Phone PAULO SNOW MD Primary Care Provider [phone] Allergies Code Code System Name Reaction Severity Status Onset NKDA ? Medications Name Status Start Date Stop Date ? ? celecoxib 100 mg capsule Active ? Not vita ilable cholecalciferol (vitamin D3) 1,250 mcg (50,000 unit) capsule Com pleted ? 02/03/2019 TK 2 CS PO ONCE A WEEK Clenpiq 10 mg-3.5 gram-12 gram/160 mL oral solution Completed ? 02/03/2019 duloxetine 60 mg capsule,delayed release Completed ? 02/03/2019 ergocalciferol (vitamin D2) 1,250 mcg (50,000 unit) Completed ? 02/03/2019 capsule ferrous sulfate 325 mg (65 mg iron) tablet Completed ? 02/03/2019 TK 1 T PO BID ibuprofen 800 mg tablet Active ? Not avai lable levothyroxine 75 mcg tablet Completed ? 01/24 Levoxyl 88 mcg tablet Active ? Not availa ble vitamin c 500mg tablets g/s Completed ? 01/24 TK 1 T PO BID Problems None recorded. Procedures Date Name Performed by ? 07/11/2018 Other Information not avai lable Notes: EGD with biospy and coloscopy 05/19/2015 Orthopaedic Surgery Information not avai lable Notes: left hip arthroscopy with femor al head and neck osteoplasty 01/31/2019 XR, Hip, Unilateral [facility] [address] [place] [address] (Work Place) 02/03/2019 MRI, Hip, W/o Contrast [facility] enter [facility] [address], [place] [id number] (Work Place) Results Lab Results None recorded. Past Encounters None recorded. Social History Tobacco Smoking Status Never Smoker Vaccine List None recorded. Plan of Care Reminders Provider Appointments None recorded. ? ? Lab None recorded. ? ? Referral None recorded. ? ? Procedures None recorded. ? ? Surgeries None recorded. ? ? Imaging None recorded. ? ? Vitals 03/31/2019 08:15AM Established Patient Height Weight BMI 5 ft 4 in 180 lbs 30.9 kg/m2 02/03/2019 09:45AM NEW PATIENT Height Weight BMI 5 ft 4 in 180 lbs 30.9 kg/m2
--- NOTE | 2022-08-27 13:08 | ED.EXTPRO ---
HPI - Extremity Problem General Chief complaint: Extremity Problem Stated complaint: L knee pain Time Seen by Provider: 08/27/22 13:08 History of Present Illness HPI Narrative: Patient complains of left knee pain without injury for the last week, denies any redness no fever Related Data Home Medications Medication Instructions Recorded Confirmed glucosamine CLy-teq-hqroyczbnxd 1 tab PO TID 06/07/22 07/21/22 500 mg-167 mg-400 mg tablet Previous Rx's Medication Instructions Recorded cholecalciferol (vitamin D3) 50 50 mcg PO DAILY 30 days #30 caps 04/04/21 mcg (2,000 unit) capsule cane #1 ea 04/08/21 lidocaine 5 % topical patch 1 patch topical DAILY #15 ea 11/06/21 (Lidoderm) Levoxyl 88 mcg tablet 88 mcg PO DAILY 30 days #30 tabs 04/14/22 (levothyroxine) omeprazole 20 mg capsule,delayed 20 mg PO DAILY #30 caps 07/21/22 release ascorbic acid (vitamin C) 500 mg 500 mg PO DAILY 90 days #90 tabs 08/23/22 tablet ferrous sulfate 325 mg (65 mg 650 mg PO DAILY 90 days #180 tabs 08/23/22 iron) tablet ibuprofen 600 mg tablet 600 mg PO Q6H PRN pain #20 tabs 08/27/22 Allergies Allergy/AdvReac Type Severity Reaction Status Date / Time No Known Allergies Allergy Verified 07/21/22 15:59 [No Known Allergies*] Review of Systems Review of Systems: Positive for left knee pain Negatives are no fever no chills no dizziness no headache no neck pain no back pain no redness no other extremity pains or swelling Yes all other systems are reviewed and are negative [facility] Past Medical History Source: nursing notes reviewed Medical History (Updated 08/27/22 @ 14:58 by SARA Jackson) Fibromyalgia Hypothyroidism Obesity (BMI 30-39.9) Vitamin D deficiency Surgical History History of biopsy History of esophagogastroduodenoscopy (EGD) Hx of tonsillectomy Hx of tubal ligation Hx of wisdom tooth extraction S/P LEEP (loop electrosurgical excision procedure) Family History Family History (Updated 07/21/22 @ 16:34 by Michael Noland MD) Father Cerebrovascular accident (CVA) Diabetes mellitus Depression Mental health disorder Lung cancer Mother Hypothyroidism Osteoporosis Fibromyalgia Hyperlipidemia Hypertension Depression Mental health disorder Maternal Aunt Thyroid cancer Maternal Uncle Liver cancer Social History Social History (Updated 07/21/22 @ 16:35 by Michael Noland MD) Household Members: Spouse and Children Housing: House Are you a primary skin care instructor to a significant other at home: No Do you presently have visiting nurse or other home services: No Alcohol intake: current Alcohol intake frequency: a few times a week Alcohol type: wine Patient Tobacco Use Status: Former Tobacco user Quit Date: 2001 Tobacco use type: Cigarette Years Smoked: 1999 quit e-Cigarette/Vaping Use: Never Used Second Hand Smoke Exposure: No Advance Directives: No Advance Directives Information Provided: Yes service: No Current occupational status: employed Cognitive needs: No Hearing needs: No Vision needs: No Physical Exam Vital Signs: Vital Signs: Last Vital Signs Temp 97.9 F 08/27/22 11:58 Pulse 77 08/27/22 11:58 Resp 16 08/27/22 11:58 BP 108/75 08/27/22 11:58 Pulse Ox 99 08/27/22 11:58 O2 Del Method 08/27/22 11:58 BMI result Body Mass Index 30.7 General appearance no distress Head is normocephalic atraumatic Neck is supple Respiratory no distress The back full range of motion Extremities the left knee is swollen but extends fully to 180 degrees flexes past 90 degrees, there is no redness no warmth no obvious effusion, neurovascular intact distal and skin is intact and normal Other extremities normal Neuro no focal deficits Course Course Course Narrative: X-ray showed a small effusion and some arthritic changes and patient is advised to follow with orthopedist with no sign of septic joint, and she ambulated from the department with a limp Discharge Plan Discharge Clinical Impression: Arthralgia of knee, left Patient Disposition: Home, Self-Care Additional Instructions: X-ray showed some arthritis and a small effusion which is water on the knee, which is common with arthritis and other knee conditions Best plan is follow with orthopedist for further evaluation Return any time if any concerns You can use Tylenol and or Motrin as needed Prescriptions: New ibuprofen 600 mg tablet 600 mg PO Q6H PRN (Reason: pain) Qty: 20 0RF No Action levothyroxine [Levoxyl] 88 mcg tablet 88 mcg PO DAILY 30 Days Qty: 30 1RF ferrous sulfate 325 mg (65 mg iron) tablet 650 mg PO DAILY 90 Days Qty: 180 3RF ascorbic acid (vitamin C) 500 mg tablet 500 mg PO DAILY 90 Days Qty: 90 3RF glucosamine [id number]-ayy-jszaiqpzsl 500-167-400 mg Tablet 1 tab PO TID Rx Instructions: 1500 mg, give with meal/snack lidocaine [Lidoderm] 5 % adhesive patch,medicated 1 patch topical DAILY Qty: 15 0RF Rx Instructions: leave on most painful area for up to 12 hrs (DME) cane Device See Rx Instructions .ROUTE .MEDSUPPLY Qty: 1 0RF Rx Instructions: As directed omeprazole 20 mg capsule,delayed release(DR/EC) 20 mg PO DAILY Qty: 30 0RF cholecalciferol (vitamin D3) 50 mcg (2,000 unit) capsule 50 mcg PO DAILY 30 Days Qty: 30 12RF Stand Alone Forms: Work/School Release Interventions: ED Discharge Assessment Last Done: 08/27/22 15:08 Discharge Date/Time: 08/27/22 15:09
== END 2022-08-27 15:09 | disposition home or self-care (01) ==
PROVIDERS: Emergency Provider Emergency Medicine Emergency Medical Services; PCP Internal Medicine
DX: M25.562 Pain in left knee (principal); Z79.899 Other long term (current) drug therapy
CPT/HCPCS: 73564; 99282; 99283

== ENCOUNTER 2022-09-19 15:45 | Outpatient (REF) | payer OTHER, SELFPAY ==
[2022-09-19 16:49] LABS: Alanine Aminotransferase 14 U/L (0-31); Albumin Level 4.4 g/dL (3.5-5.0); Alkaline Phosphatase 64 U/L (39-117); Aspartate Amino Transferase 13 U/L (5-31); Bilirubin Direct 0.2 mg/dL (0.0-0.5); Bilirubin Total 0.3 mg/dL (0.0-1.0); Total Protein 6.8 g/dL (6.5-8.0)
== END 2022-09-19 15:46 | disposition home or self-care (01) ==
LOC: HO.LAB 15:45
PROVIDERS: PCP Internal Medicine; Visit Provider Podiatrist
DX: B35.1 Tinea unguium (principal)
CPT/HCPCS: 36415; 80076

== ENCOUNTER 2022-11-29 15:47 | Outpatient (REF) | payer OTHER, SELFPAY ==
[2022-11-29 17:17] LABS: Alanine Aminotransferase 18 U/L (0-31); Albumin Level 4.5 g/dL (3.5-5.0); Alkaline Phosphatase 62 U/L (39-117); Aspartate Amino Transferase 15 U/L (5-31); Bilirubin Direct < 0.2 mg/dL (0.0-0.5); Bilirubin Total 0.4 mg/dL (0.0-1.0)
== END 2022-11-29 15:48 | disposition home or self-care (01) ==
LOC: HO.LAB 15:47
PROVIDERS: PCP Internal Medicine; Visit Provider Podiatrist
DX: E03.8 Other specified hypothyroidism (principal); E06.3 Autoimmune thyroiditis
CPT/HCPCS: 36415; 80076

== ENCOUNTER 2023-01-16 07:19 | Outpatient (REF) | payer OTHER, SELFPAY ==
[2023-01-16 07:41] LABS: MANUAL DIFF FLAG NO
[2023-01-16 08:02] LABS: Basophils Absolute Auto 0.1 X10*3/uL (0.0-0.2); Basophils Percent Auto 0.7 % (0-2); Eosinophils Absolute Auto 0.2 X10*3/uL (0.0-0.4); Eosinophils Percent Auto 2.8 % (0-4); Hematocrit 38.5 % (37.0-47.0); Hemoglobin 13.4 g/dl (12.0-16.0); Imm Gran Abs Auto 0.04 X10*3/uL (0.00-0.03); Imm Gran Pct Auto 0.6 % (0.0-0.4); Lymphocytes Absolute Auto 1.5 X10*3/uL (1.2-4.9); Lymphocytes Percent Auto 21.5 % (20-40); Mean Corpuscular HGB Conc 34.8 g/dl (31.0-35.0); Mean Corpuscular Hemoglobin 31.2 pg (27.0-33.0); Mean Corpuscular Volume 89.7 fL (80.0-98.0); Monocytes Absolute Auto 0.5 X10*3/uL (0.1-1.2); Monocytes Percent Auto 7.6 % (2-11); Neutrophils Absolute Auto 4.7 x10*3/uL (2.0-8.3); Neutrophils Percent Auto 66.8 % (45-73); Platelet Count 324 X10*3/uL (160-400); Red Blood Count 4.29 X10*6/uL (4.20-5.50); Red Cell Distribution Width 13.9 % (11.0-16.0); White Blood Count 7.1 X10*3/uL (4.8-10.8)
[2023-01-16 08:39] LABS: Alanine Aminotransferase 18 U/L (0-31); Albumin Level 4.1 g/dL (3.5-5.0); Alkaline Phosphatase 57 U/L (39-117); Anion Gap 13 (12-20); Aspartate Amino Transferase 14 U/L (5-31); Bilirubin Total 0.5 mg/dL (0.0-1.0); Blood Urea Nitrogen 12 mg/dL (9-16); Calcium 8.9 mg/dL (8.4-10.2); Carbon Dioxide 26 mmol/L (22-29); Chloride 104 mmol/L (96-108); Estimated Glomerular Filt Rate > 60; Glucose Random 85 mg/dL (60-115); Potassium 4.6 mmol/L (3.3-5.1); Sodium 138 mmol/L (135-145); Total Protein 6.4 g/dL (6.5-8.0)
== END 2023-01-16 07:20 | disposition home or self-care (01) ==
LOC: HO.LAB 07:19
PROVIDERS: PCP Internal Medicine; Visit Provider Internal Medicine
DX: M19.90 Unspecified osteoarthritis, unspecified site (principal); E03.8 Other specified hypothyroidism; E06.3 Autoimmune thyroiditis
CPT/HCPCS: 36415; 80053; 84443; 85025

== ENCOUNTER 2023-01-17 12:29 | Outpatient (REF) | payer OTHER, SELFPAY ==
--- NOTE | ~2023-01-17 | MM_ITS ---
EXAMINATION: MM SCREENING DIGITAL BREAST TOMOSYNTHESIS, BILATERAL CLINICAL INFORMATION: Screening. Asymptomatic. The lifetime risk of breast cancer based on the Tyrer-Cuzick Model is 9%. COMPARISON: Mammography: 12/08/2021, 11/24/2020, 02/14/2018 (baseline) TECHNIQUE: Digital breast tomosynthesis is performed in both the craniocaudal and mediolateral oblique views along with computer-aided detection (CAD). Synthesized 2D images are generated from the tomosynthesis. FINDINGS: There are scattered areas of fibroglandular density (ACR BI-RADS breast composition Category b). There are no significant masses, abnormal calcifications, or other abnormalities. Parenchymal pattern is similar to prior studies. There is no developing density or architectural abnormality. The axilla and skin contours are unremarkable. No significant changes. MM/MM tomosynthesis screening BI IMPRESSION: No mammographic evidence of malignancy. ASSESSMENT: BI-RADS 1: Negative RECOMMENDATION: Routine annual mammography screening. This patient's information was entered into a reminder system with a target due date for their next mammogram.
== END 2023-01-17 12:30 | disposition home or self-care (01) ==
LOC: HO.MAMMO 12:29
PROVIDERS: Visit Provider Internal Medicine
DX: Z12.31 Encounter for screening mammogram for malignant neoplasm of breast (principal)
CPT/HCPCS: 77063; 77067

== ENCOUNTER 2023-04-24 11:00 | Outpatient (RCR) | payer OTHER, SELFPAY | END 2023-05-07 10:28 | disposition home or self-care (01) | LOC: HO.PT 11:00 | PROVIDERS: PCP Internal Medicine; Visit Provider Student in an Organized Health Care Education/Training Program | DX: Z96.642 Presence of left artificial hip joint (principal) | CPT/HCPCS: 97110; 97162; 97530 ==

== ENCOUNTER 2023-06-21 09:18 | Outpatient (REF) | payer OTHER, SELFPAY | END 2023-06-21 09:19 | disposition home or self-care (01) | LOC: HO.LAB 09:18 | PROVIDERS: PCP Internal Medicine; Visit Provider Physician Assistant Surgical | DX: Z13.89 Encounter for screening for other disorder (principal) ==

== ENCOUNTER 2023-10-11 13:38 | Outpatient (AMB) | payer OTHER, SELFPAY ==
--- NOTE | 2023-10-11 13:40 | A.OFFPC_ITS ---
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 per policy Accompanied by: Self / Same As Patient Allergies No Known Allergies [No Known Allergies*] Allergy (Verified 10/11/23 13:41) Medication List - Last Reconciled 10/11/23 by MD jose Zacarias As directed cholecalciferol (vitamin D3) 50 mcg PO DAILY 30 days Levoxyl (levothyroxine) 88 mcg PO DAILY 30 days NS lidocaine 5% (Lidoderm) 1 patch topical DAILY meloxicam 15 mg PO DAILY tizanidine 4 mg PO BEDTIME PRN Tobacco use date assessed: 01/18/23 Dental Screening Dental Screen Date: 10/11/23 Did you have a dental visit in the last 12 months?: Yes Did you have a dental problem in the last 6 months where you did not have access to dental care?: No Was dental information given to patient?: Patient has dentist HPI PE HPI Details 43-year-old obese female with hypothyroi dism status post left hip replacement generalized anxiety disorder coming in for physical exam last seen in March 2023. Up-to-date with mammogram. Patient also had a recent surgery hysteroscopy with D&C under Dr. Hanna August 2023 for abnormal uterine bleeding. Patient has also seen Orthopedics lumbar MRI 02/07/2022 bilateral SI joint pain advised injections but not done. MRI done- results not done [facility] Medical History Obesity (BMI 30-39.9) Fibromyalgia Vitamin D deficiency Hypothyroidism Surgical History History of biopsy S/P LEEP (loop electrosurgical excision procedure) Hx of wisdom tooth extraction History of esophagogastroduodenoscopy (EGD) Hx of tonsillectomy Hx of tubal ligation Family History Father Cerebrovascular accident (CVA) Diabetes mellitus Depression Mental health disorder Lung cancer Mother Hypothyroidism Osteoporosis Fibromyalgia Hyperlipidemia Hypertension Depression Mental health disorder Maternal Aunt Thyroid cancer Maternal Uncle Liver cancer Social History (Updated 10/11/23 @ 14:18 by Michael Noland MD) Household Members: Spouse and Children Housing: House Are you a primary care coordinator to a significant other at home: No Do you presently have visiting nurse or other home services: No Alcohol intake: current Alcohol intake frequency: a few times a week Alcohol type: wine Patient Tobacco Use Status: Former Tobacco user Quit Date: 2001 Tobacco use type: Cigarette Years Smoked: 1999 quit e-Cigarette/Vaping Use: Never Used Second Hand Smoke Exposure: No service: No Current occupational status: employed Cognitive needs: No Hearing needs: No Vision needs: No Questionnaire PHQ-9 Over the last 2 weeks, how often have you been bothered by any of the following problems? 1. Little interest or pleasure in doing things: several days 2. Feeling down, depressed, or hopeless: several days 3. Trouble falling or staying asleep, or sleeping too much: several days 4. Feeling tired or having little energy: several days 5. Poor appetite or overeating: several days 6. Feeling bad about yourself - or that you are a failure or have let yourself or your family down: several days 7. Trouble concentrating on things, such as reading the newspaper or watching television: several days 8. Moving or speaking so slowly that other people could have noticed. Or the opposite - being so fidgety or restless that you have been moving around a lot more than usual: several days 9. Thoughts that you would be better off or of hurting yourself in some way: several days Total score: 9 Depression Screening Interpretation: Positive Depression Screening Done: Yes Source: Developed by Drs. Yonathan More, Tiffanie Dixon, Andrez Delaney and colleagues, with an educational anu from [employer]. Thrive Questionnaire Date Thrive assessed: 01/18/23 AUDIT C Alcohol Use Questionnaire (AUDIT-C) 1. How often do you have a drink containing alcohol?: 2-4 times a month 2. How many drinks containing alcohol do you have on a typical day when you are drinking?: 1 or 2 Total Score: 2 CAREN-7 AMB Questionnaire CAREN-7 Date CAREN - 7 assessed: 01/18/23 Source: Developed by Drs. Yonathan More, Tiffanie Dixon, Andrez Delaney and colleagues, with an educational anu from [employer]. Review of Systems Const Denies poor appetite and Denies weakness Eyes Denies no additional complaints ENT Reports Normal hearing present, Denies dizziness, Denies nasal congestion, Denies tinnitus and Denies sore throat Card Denies chest pain, Denies syncope, Denies rapid heart rate and Denies dyspnea Resp Denies cough and Denies dyspnea GI Denies change in stool character, Reports constipation, Denies diarrhea, Denies nausea and Denies vomiting Denies urinary frequency, Denies difficulty voiding and Denies dysuria Neuro Reports Normal hearing present, Denies confusion, Denies dizziness, Denies syncope and Denies weakness Psych Denies confusion Physical exam (Primary Care) Vital Signs: Last Vital Signs Pulse 72 10/11/23 13:41 BP 116/72 10/11/23 13:41 Pulse Ox 99 10/11/23 13:41 Oxygen Delivery Method Room Air 10/11/23 13:41 BMI result Body Mass Index 31.8 Tobacco/Smoking Status: Tobacco use Status Tobacco use date assessed 01/18/23 10/11/23 13:47 Patient Tobacco Use Status Former Tobacco user 10/11/23 14:18 Tobacco use type Cigarette 10/11/23 14:18 e-Cigarette/Vaping Use Never Used 10/11/23 14:18 PHQ-9: PHQ-9 Score PHQ-9: Total score 9 10/11/23 14:11 Depression Screening Interpretation: Positive Thrive Assessment: Date of Thrive Assessment Date Thrive assessed 01/18/23 10/11/23 13:47 Const General: No confusion Orientation/consciousness: No confusion HENOR Head: Yes normocephalic Ears: external ears normal and TM's normal bilaterally Face and sinus: Yes normal facial exam Mouth: moist mucous membranes Throat: Yes tonsils normal Eyes Conjunctivae: conjunctivae normal Pupils: Equal, round and reactive pupils present and Pupil accommodation reflex normal Direct Ophthalmoscopy: normal light reflex Neck Neck: No lymphadenopathy Thyroid: Thyroid normal Chest Chest palpation & inspection: normal inspection of the chest Resp Effort & Inspection: normal respiratory effort and no audible wheezes Auscultation: clear to auscultation bilaterally, no crackles, no wheezes and lung sounds not diminished Cardio Rate: regular rate Rhythm: regular rhythm Peripheral pulses: radial pulses present and dorsalis pedis present GI Palpation (GI): no masses Auscultation: normal bowel sounds and normoactive bowel sounds Rectal Exam - Female: deferred Skin General skin exam: no rashes or lesions noted Rashes: no rashes Neuro General: No confusion Cranial nerves: Yes Equal, round and reactive pupils present and Yes Normal hearing present Cognition (Neuro): normal cognition Gait exam (Neuro): Normal gait present Motor exam (neuro): 5/5 motor strength present throughout Deep tendon reflexes (DTR's): Right brachioradialis reflex intensity grade: 2+, Left brachioradialis reflex intensity grade: 2+, Right patellar reflex intensity grade: 2+ and Left patellar reflex intensity grade: 2+ Extrem General: No edema Office Procedures Flu Questionnaire Does the patient have a severe egg allergy?: No Does the patient have severe life threatening allergies?: No Does the patient have a fever or illness today?: No Has the patient ever had Guillain-[place] Syndrome?: No Has the patient ever had any past reaction to a flu shot?: No Immunizations flu vacc [id number] 6mos up(PF) 60 mcg(15 mcgx4)/0.5 mL IM syringe Performing Provider: Michael Noland MD [facility] Administered by: JAQUI Tijerina on 10/11/23 14:34 Dose Route Admin Location Dispensed Lot Number Expiration Date NDC Authors Motivational 0.5 mL IM Left Deltoid 0.5 mL [id number] 05/25/24 [id number] [employer] VIS Given Date VIS Provided VIS Publication Date 10/11/23 Single Vaccine 21 Eligibility Eligibility Date Funding Source Not [facility] Eligible 10/11/23 Private Assessment and Plan Assessment & Plan (1) Annual physical exam: Code(s): Z00.00 - Encounter for general adult medical examination without abnormal findings (2) GERD (gastroesophageal reflux disease): Code(s): K21.9 - Gastro-esophageal reflux disease without esophagitis Plan: Avoid the foods that causes that usually spicy foods, tomato products, juices, coffee, soda and foods that your sensitive to. After eating do not lie down, allow 3-4 hours before in lie down. And keep the head of bed above 30 degrees to avoid the acid from going up. 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 Qualified Code(s): E03.8 - Other specified hypothyroidism; E06.3 - Autoimmune thyroiditis Plan: Continue with thyroid medication (4) Obesity (BMI 30-39.9): Code(s): E66.9 - Obesity, unspecified Plan: Diet and exercise (5) Sacroiliac joint pain: Code(s): M53.3 - Sacrococcygeal disorders, not elsewhere classified Plan: Patient was seen by the Ortho and planned injection (6) Generalized anxiety disorder: Code(s): F41.1 - Generalized anxiety disorder Plan: Stable (7) Hip osteoarthritis: Comment: MRI 2019 Moderate OSteoarthritis Code(s): M16.9 - Osteoarthritis of hip, unspecified (8) Status post left hip replacement: Comment: Total hip replacement left Dr. Kurtz January 2023 Code(s): Z96.642 - Presence of left artificial hip joint Plan: Patient follows up with orthopedics Orders: Orders Thyroid Stimulating Hormone Today K21.9 - Gastro-esophageal reflux disease without esophagitis Vitamin D 25-OH Total Today K21.9 - Gastro-esophageal reflux disease without esophagitis Lipid Panel Today E78.00 - Pure hypercholesterolemia, unspecified, K21.9 - Gastro-esophageal reflux disease without esophagitis Influenza [id number] Immunization Today Z23 - Encounter for immunization Complete Blood Count Auto Diff Today K21.9 - Gastro-esophageal reflux disease without esophagitis Comprehensive Met. Panel Today K21.9 - Gastro-esophageal reflux disease without esophagitis Free T4 (Free Thyroxine) Today K21.9 - Gastro-esophageal reflux disease without esophagitis Vitamin B12 and Folate Today K21.9 - Gastro-esophageal reflux disease without esophagitis Medications: New flu vacc [id number] 6mos up(PF) 0.5 mL IM ONCE 0.5 mL 0RF Z23 - Encounter for immunization Changed From Levoxyl (levothyroxine) 88 mcg PO DAILY 30 days 30 tabs 1RF NS E03.9 - Hypothyroidism, unspecified To Levoxyl (levothyroxine) 88 mcg PO DAILY 90 days 90 tabs 1RF NS E03.9 - Hypothyroidism, unspecified From meloxicam 15 mg PO DAILY 30 tabs 1RF Z96.642 - Presence of left artificial hip joint To meloxicam 15 mg PO DAILY 90 days 90 tabs 1RF Z96.642 - Presence of left artificial hip joint Refilled tizanidine 4 mg PO BEDTIME PRN 90 tabs 0RF muscle spasticity Z96.642 - Presence of left artificial hip joint Coding Level of Care Code Est Pt Prev Care 40-64y(67929) Diagnoses Annual physical exam Z00.00 GERD (gastroesophageal reflux disease) K21.9 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
[2023-10-11 13:41] VITALS: BP 116/72; PULSE 72; O2SAT 99; BMI 31.8
== END 2023-10-11 14:38 | disposition home or self-care (01) ==
PROVIDERS: Visit Provider Internal Medicine
DX: Z00.00 Encounter for general adult medical examination without abnormal findings (principal); K21.9 Gastro-esophageal reflux disease without esophagitis; E03.8 Other specified hypothyroidism; E06.3 Autoimmune thyroiditis; E66.9 Obesity, unspecified; M53.3 Sacrococcygeal disorders, not elsewhere classified; F41.1 Generalized anxiety disorder; M16.9 Osteoarthritis of hip, unspecified; Z96.642 Presence of left artificial hip joint; Z23 Encounter for immunization
CPT/HCPCS: 90471; 90686; 99396

== ENCOUNTER 2023-10-13 10:26 | Outpatient (REF) | payer OTHER, SELFPAY ==
[2023-10-13 10:34] LABS: MANUAL DIFF FLAG NO
[2023-10-13 11:17] LABS: Basophils Absolute Auto 0.1 X10*3/uL (0.0-0.2); Basophils Percent Auto 0.9 % (0-2); Eosinophils Absolute Auto 0.2 X10*3/uL (0.0-0.4); Eosinophils Percent Auto 4.3 % (0-4); Hematocrit 32.1 % (37.0-47.0); Hemoglobin 10.4 g/dl (12.0-16.0); Imm Gran Abs Auto 0.02 X10*3/uL (0.00-0.03); Imm Gran Pct Auto 0.4 % (0.0-0.4); Lymphocytes Absolute Auto 1.5 X10*3/uL (1.2-4.9); Mean Corpuscular HGB Conc 32.4 g/dl (31.0-35.0); Mean Corpuscular Hemoglobin 25.5 pg (27.0-33.0); Mean Corpuscular Volume 78.7 fL (80.0-98.0); Mean Platelet Volume 11.4 fL (9.4-12.3); Monocytes Absolute Auto 0.5 X10*3/uL (0.1-1.2); Monocytes Percent Auto 9.6 % (2-11); Neutrophils Absolute Auto 3.3 x10*3/uL (2.0-8.3); Neutrophils Percent Auto 58.8 % (45-73); Platelet Count 407 X10*3/uL (160-400); Red Blood Count 4.08 X10*6/uL (4.20-5.50); White Blood Count 5.6 X10*3/uL (4.8-10.8)
[2023-10-13 11:47] LABS: Alanine Aminotransferase 15 U/L (0-31); Albumin Level 3.8 g/dL (3.5-5.0); Alkaline Phosphatase 72 U/L (39-117); Anion Gap 11 (12-20); Aspartate Amino Transferase 14 U/L (5-31); Bilirubin Total 0.2 mg/dL (0.0-1.0); Blood Urea Nitrogen 13 mg/dL (9-16); Calcium 8.6 mg/dL (8.4-10.2); Carbon Dioxide 26 mmol/L (22-29); Chloride 106 mmol/L (96-108); Cholesterol 154 mg/dL (<200); Estimated Glomerular Filt Rate > 60; Glucose Random 85 mg/dL (60-115); HDL Cholesterol 44 mg/dL (>40); LDL Cholesterol Calculated 95 mg/dL (<100); Potassium 4.4 mmol/L (3.3-5.1); Sodium 139 mmol/L (135-145); Total Protein 6.4 g/dL (6.5-8.0); Triglycerides 79 mg/dL (<150)
[2023-10-13 12:05] LABS: Free T4 (Free Thyroxine) 0.78 ng/dL (0.71-1.85); Thyroid Stimulating Hormone 0.73 uIU/mL (0.32-4.0); Vitamin D 25-OH Total 23.2 ng/mL (>30)
[2023-10-13 12:11] LABS: Folate 6.7 ng/mL (> or = 4.0); Vitamin B12 303 pg/mL (200-900)
== END 2023-10-13 10:27 | disposition home or self-care (01) ==
LOC: HO.LAB 10:26
PROVIDERS: PCP Internal Medicine; Visit Provider Internal Medicine
DX: K21.9 Gastro-esophageal reflux disease without esophagitis (principal); E78.00 Pure hypercholesterolemia, unspecified
CPT/HCPCS: 36415; 80053; 80061; 82306; 82607; 82746; 84439; 84443; 85025

== ENCOUNTER 2023-10-16 14:58 | Outpatient (REF) | payer OTHER, SELFPAY ==
[2023-10-16 15:10] LABS: MANUAL DIFF FLAG NO
[2023-10-16 15:23] LABS: Basophils Percent Auto 0.5 % (0-2); Eosinophils Absolute Auto 0.2 X10*3/uL (0.0-0.4); Eosinophils Percent Auto 2.7 % (0-4); Hematocrit 30.5 % (37.0-47.0); Hemoglobin 9.9 g/dl (12.0-16.0); Imm Gran Abs Auto 0.02 X10*3/uL (0.00-0.03); Imm Gran Pct Auto 0.3 % (0.0-0.4); Immature Retic Fraction 23.4 % (3.0-15.9); Lymphocytes Absolute Auto 1.8 X10*3/uL (1.2-4.9); Lymphocytes Percent Auto 24.8 % (20-40); Mean Corpuscular HGB Conc 32.5 g/dl (31.0-35.0); Mean Corpuscular Hemoglobin 25.2 pg (27.0-33.0); Mean Corpuscular Volume 77.6 fL (80.0-98.0); Mean Platelet Volume 10.4 fL (9.4-12.3); Monocytes Absolute Auto 0.6 X10*3/uL (0.1-1.2); Monocytes Percent Auto 8.4 % (2-11); Neutrophils Absolute Auto 4.6 x10*3/uL (2.0-8.3); Neutrophils Percent Auto 63.3 % (45-73); Platelet Count 362 X10*3/uL (160-400); Red Blood Count 3.93 X10*6/uL (4.20-5.50); Red Cell Distribution Width 16.9 % (11.0-16.0); Retic HGB Equivalent 24.4 pg (30.0-35.0); Reticulocyte Percent 2.7 % (0.5-1.8); Reticulocytes Absolute 0.107 X10*6/uL (0.026-0.095); White Blood Count 7.3 X10*3/uL (4.8-10.8)
[2023-10-16 15:51] LABS: Iron 22 mcg/dL (30-160); Percent Iron Saturation 5 % (15-50); Total Iron Binding Capacity 431 mcg/dL (228-428); Unsaturated Iron Binding 409 ug/dL
[2023-10-16 16:10] LABS: Ferritin 4 ng/mL (10-250)
[2023-10-16 16:23] LABS: Folate 7.7 ng/mL (> or = 4.0); Vitamin B12 411 pg/mL (200-900)
== END 2023-10-16 14:59 | disposition home or self-care (01) ==
LOC: HO.LAB 14:58
PROVIDERS: PCP Internal Medicine; Visit Provider Internal Medicine
DX: D50.9 Iron deficiency anemia, unspecified (principal)
CPT/HCPCS: 36415; 82607; 82728; 82746; 83540; 85025; 85045

== ENCOUNTER 2024-01-16 07:48 | Outpatient (REF) | payer OTHER, SELFPAY ==
[2024-01-16 07:59] LABS: MANUAL DIFF FLAG NO
[2024-01-16 08:45] LABS: Basophils Absolute Auto 0.1 X10*3/uL (0.0-0.2); Basophils Percent Auto 0.7 % (0-2); Eosinophils Absolute Auto 0.1 X10*3/uL (0.0-0.4); Eosinophils Percent Auto 1.9 % (0-4); Hemoglobin 13.6 g/dl (12.0-16.0); Imm Gran Abs Auto 0.02 X10*3/uL (0.00-0.03); Imm Gran Pct Auto 0.3 % (0.0-0.4); Immature Retic Fraction 11.5 % (3.0-15.9); Lymphocytes Absolute Auto 1.5 X10*3/uL (1.2-4.9); Lymphocytes Percent Auto 22.9 % (20-40); Mean Corpuscular HGB Conc 34.9 g/dl (31.0-35.0); Mean Corpuscular Hemoglobin 29.8 pg (27.0-33.0); Mean Corpuscular Volume 85.5 fL (80.0-98.0); Mean Platelet Volume 10.6 fL (9.4-12.3); Monocytes Absolute Auto 0.4 X10*3/uL (0.1-1.2); Monocytes Percent Auto 6.3 % (2-11); Neutrophils Absolute Auto 4.6 x10*3/uL (2.0-8.3); Neutrophils Percent Auto 67.9 % (45-73); Platelet Count 313 X10*3/uL (160-400); Red Blood Count 4.56 X10*6/uL (4.20-5.50); Red Cell Distribution Width 14.7 % (11.0-16.0); Retic HGB Equivalent 34.9 pg (30.0-35.0); Reticulocyte Percent 2.5 % (0.5-1.8); Reticulocytes Absolute 0.114 X10*6/uL (0.026-0.095); White Blood Count 6.7 X10*3/uL (4.8-10.8)
[2024-01-16 08:58] LABS: INTERNATIONAL NORM RATIO 0.9 (0.9-1.1); Prothrombin Time 11.2 SEC (11.1-13.3)
[2024-01-16 09:09] LABS: Estimated Average Glucose 82 mg/dL; Hemoglobin A1c % 4.5 % (<6.0)
[2024-01-16 09:16] LABS: Anion Gap 13 (12-20); Blood Urea Nitrogen 14 mg/dL (9-16); Calcium 8.5 mg/dL (8.4-10.2); Carbon Dioxide 27 mmol/L (22-29); Chloride 107 mmol/L (96-108); Estimated Glomerular Filt Rate > 60; Glucose Random 84 mg/dL (60-115); Iron 55 mcg/dL (30-160); Percent Iron Saturation 15 % (15-50); Potassium 3.9 mmol/L (3.3-5.1); Sodium 143 mmol/L (135-145); Total Iron Binding Capacity 357 mcg/dL (228-428); Unsaturated Iron Binding 302 ug/dL
[2024-01-16 09:34] LABS: Ferritin 51 ng/mL (10-250)
[2024-01-16 09:42] LABS: Vitamin B12 381 pg/mL (200-900)
== END 2024-01-16 07:49 | disposition home or self-care (01) ==
LOC: HO.LAB 07:48
PROVIDERS: PCP Internal Medicine; Visit Provider Internal Medicine
DX: Z01.818 Encounter for other preprocedural examination (principal); D50.9 Iron deficiency anemia, unspecified
CPT/HCPCS: 36415; 80048; 82607; 82728; 82746; 83036; 83540; 85025; 85045; 85610

== ENCOUNTER 2024-01-24 15:33 | Outpatient (REF) | payer OTHER, SELFPAY | END 2024-01-24 15:34 | disposition home or self-care (01) | LOC: HO.MAMMO 15:33 | PROVIDERS: PCP Internal Medicine; Visit Provider Internal Medicine | DX: Z12.31 Encounter for screening mammogram for malignant neoplasm of breast (principal) | CPT/HCPCS: 77063; 77067 ==

== ENCOUNTER → 2024-01-24 15:45 | Outpatient (BNV) | payer OTHER, SELFPAY | PROVIDERS: PCP Internal Medicine; Visit Provider Radiology Diagnostic Radiology | DX: Z12.31 Encounter for screening mammogram for malignant neoplasm of breast (principal) | CPT/HCPCS: 77063; 77067 ==

== ENCOUNTER 2024-04-04 10:20 | Outpatient (AMB) | payer OTHER, SELFPAY ==
--- NOTE | 2024-04-04 10:22 | A.OFFPC_ITS ---
Intake Visit Reasons: Pneumonia Urgent Care 03/31/24 Allergies No Known Allergies [No Known Allergies*] Allergy (Verified 10/11/23 13:41) Medication List - Last Reconciled 04/04/24 by Michael Noland MD ascorbic acid (vitamin C) 500 mg PO .QD 30 days cane As directed cholecalciferol (vitamin D3) 50 mcg PO DAILY 30 days dextromethorphan polistirex ER (Delsym 12 hour) 10 mL PO .QHS PRN ferrous sulfate (FeroSul) 650 mg (2 x 325 mg (65 mg iron)) PO DAILY guaifenesin ER (Mucinex) 600 mg PO QAM PRN Levoxyl (levothyroxine) 88 mcg PO DAILY 90 days NS lidocaine 5% (Lidoderm) 1 patch topical DAILY meloxicam 15 mg PO DAILY 90 days tizanidine 4 mg PO BEDTIME PRN Tobacco use date assessed: 01/18/23 Dental Screening Dental Screen Date: 10/11/23 HPI Pneumonia Urgent Care 03/31/24 HPI Details 43-year-old obese female with GERD hypot hyroidism generalized anxiety disorder hip osteoarthritis status post left replacement September 2023 last seen coming in through Telehealth. Patient is up-to-date with mammogram December 2023. Seen by [facility]oped[facility] [place] in October 2023 having left sacroiliac joint pain and was referred to Interventional pain medicine as for fibromyalgia was advised by orthopedics to see a Rheumatology. Patient states was seen the Urgent [facility] for pneumonia. [facility] coughing runny nose last week - but got worse with wheezing ears clogged- 5 days ago felt sob on exertion. left work SundayMarch 31- was told pneumonia PAtient was prescribe prednisone , zithromax augmentin and albuterol. [facility] Medical History (Updated 04/04/24 @ 11:47 by Michael Noland MD) Anemia Obesity (BMI 30-39.9) Fibromyalgia Vitamin D deficiency Hypothyroidism Surgical History History of biopsy S/P LEEP (loop electrosurgical excision procedure) Hx of wisdom tooth extraction History of esophagogastroduodenoscopy (EGD) Hx of tonsillectomy Hx of tubal ligation Family History Father Cerebrovascular accident (CVA) Diabetes mellitus Depression Mental health disorder Lung cancer Mother Hypothyroidism Osteoporosis Fibromyalgia Hyperlipidemia Hypertension Depression Mental health disorder Maternal Aunt Thyroid cancer Maternal Uncle Liver cancer Social History Household Members: Spouse and Children Housing: House Are you a primary care taker to a significant other at home: No Do you presently have visiting nurse or other home services: No Alcohol intake: current Alcohol intake frequency: a few times a week Alcohol type: wine Patient Tobacco Use Status: Former Tobacco user Quit Date: 2001 Tobacco use type: Cigarette Years Smoked: 1999 quit e-Cigarette/Vaping Use: Never Used Second Hand Smoke Exposure: No service: No Current occupational status: employed Cognitive needs: No Hearing needs: No Vision needs: No Questionnaire PHQ-9 Over the last 2 weeks, how often have you been bothered by any of the following problems? 1. Little interest or pleasure in doing things: not at all 2. Feeling down, depressed, or hopeless: not at all 3. Trouble falling or staying asleep, or sleeping too much: not at all 4. Feeling tired or having little energy: not at all 5. Poor appetite or overeating: not at all 6. Feeling bad about yourself - or that you are a failure or have let yourself or your family down: not at all 7. Trouble concentrating on things, such as reading the newspaper or watching television: not at all 8. Moving or speaking so slowly that other people could have noticed. Or the opposite - being so fidgety or restless that you have been moving around a lot more than usual: not at all 9. Thoughts that you would be better off or of hurting yourself in some way: not at all Total score: 0 Depression Screening Interpretation: Negative Depression Screening Done: Yes [id number] - PHQ-9 Billing: Yes Source: Developed by Drs. Yonathan More, Tiffanie Dixon, Andrez Delaney and colleagues, with an educational anu from [employer]. Thrive Questionnaire Date Thrive assessed: 04/04/24 I am a: Patient What is your living situation today?: I have a steady place to live Within the past 12 months, did the food you bought not last and you didn't have the money to get more?: Never true Within the past 12 months, did you worry whether your food would run out before you got money to buy more?: Never true Do you have trouble paying for medicines?: No Do you have trouble getting transportation to medical appointments?: No Do you have trouble paying your heating and electricity bill?: No Do you have trouble taking care of your child, family member or friend?: No Do you have trouble with day-to-day activities such as bathing, preparing meals, shopping, managing finances, etc.?: No Are you currently unemployed and looking for a job?: No Are you interested in more education?: No Please select the resources that you would like help with: None Currently or been in a relationship where the following occur: no concerns reported THRIVE Score: 0 AUDIT C Alcohol Use Questionnaire (AUDIT-C) 1. How often do you have a drink containing alcohol?: Monthly or less 2. How many drinks containing alcohol do you have on a typical day when you are drinking?: 1 or 2 3. How often do you have six or more drinks on one occasion?: Never Total Score: 1 CAREN-7 AMB Questionnaire CAREN-7 Date CAREN - 7 assessed: 04/04/24 Feeling nervous, anxious, or on edge: 2 = More than half the days Not being able to stop or control worryin = Several days Worrying too much about different things: 2 = More than half the days Trouble relaxin = More than half the days Being so restless that it is hard to sit still: 1 = Several days Becoming easily annoyed or irritable: 1 = Several days Feeling afraid as if something awful might happen: 2 = More than half the days Total CAREN-7 score (0-4 normal; 5-9 mild; 10-14 moderate; 15-21 severe): 11 Source: Developed by Drs. Yonathan More, Tiffanie Dixon, Andrez Delaney and colleagues, with an educational anu from [employer]. CAREN-7 Assessment Billing CAREN-7 Assessment Tool: CAREN-7 Assessment 35735 Physical exam (Primary Care) Tobacco/Smoking Status: Tobacco use Status Tobacco use date assessed 01/18/23 04/04/24 10:23 Patient Tobacco Use Status Former Tobacco user 04/04/24 10:23 Tobacco use type Cigarette 04/04/24 10:23 e-Cigarette/Vaping Use Never Used 04/04/24 10:23 PHQ-9: PHQ-9 Score PHQ-9: Total score 0 04/04/24 10:34 Depression Screening Interpretation: Negative Thrive Assessment: Date of Thrive Assessment Date Thrive assessed 04/04/24 04/04/24 10:34 Currently or been in a relationship where the following occur: no concerns reported Telehealth Telehealth Telehealth Platform: Telephone Location of provider rendering services: practice address Location of patient: address on file Patient Identification confirmed using: Name, : Yes Telehealth method: video Patient verbally consented to treatment: Yes Patient verbally consented to billing insurance company: Yes Patient informed of any privacy concerns related to visit: Yes Minutes spent on Phone/Video with Pt.: 15 Assessment and Plan Assessment & Plan (1) Cough: Code(s): R05.9 - Cough, unspecified Plan: Patient has been prescribed Augmentin and Zithromax, prednisone and albuterol. Discussed that she can use the inhaler 2 puffs 3 to 4 times a day as needed every 4 hours Delsym prescribed at nighttime to help stop the cough and Mucinex to help bring up the phlegm during the daytime. Chest x-ray requested excuse note from work as she did not work yesterday. Orders: Orders XR chest 2V Today R05.9 - Cough, unspecified Medications: New dextromethorphan polistirex ER (Delsym 12 hour) 10 mL PO .QHS PRN 89 mL 0RF cough R05.9 - Cough, unspecified albuterol sulfate 90 mcg/actuation (Proventil HFA) 2 puffs inhalation Q4-6H PRN 8.5 grams 0RF Shortness Of Breath J45.909 - Unspecified asthma, uncomplicated, R05.9 - Cough, unspecified guaifenesin ER (Mucinex) 600 mg PO QAM PRN 20 tabs 0RF congestion R05.9 - Cough, unspecified Coding Level of Care Code Tele Est Pt Level 3 (81125) Diagnoses Cough R05.9 Additional Codes CAREN-7 Assessment Billing - CAREN-7 Assessment Tool: CAREN-7 Assessment 32762 ([id number])
== END 2024-04-04 15:45 | disposition home or self-care (01) ==
LOC: HO.HMGH 10:20
PROVIDERS: PCP Internal Medicine; Visit Provider Internal Medicine
DX: R05.9 Cough, unspecified (principal)
CPT/HCPCS: 99213

== ENCOUNTER 2024-04-04 14:15 | Outpatient (REF) | payer OTHER, SELFPAY ==
--- NOTE | ~2024-04-04 | XR_ITS ---
EXAMINATION: XR CHEST CLINICAL INFORMATION: Cough, unspecified COMPARISON: Chest 09/04/2017 TECHNIQUE: 2 views of the chest were obtained. FINDINGS: No significant abnormality is noted involving the heart, lungs, mediastinum, bony thorax or soft tissues. XR/XR chest 2V IMPRESSION: No acute cardiopulmonary disease.
== END 2024-04-04 14:16 | disposition home or self-care (01) ==
LOC: HO.XRAY 14:15
PROVIDERS: PCP Internal Medicine; Visit Provider Internal Medicine
DX: R05.9 Cough, unspecified (principal)
CPT/HCPCS: 71046

== ENCOUNTER 2024-10-08 06:26 | Outpatient (REF) | payer OTHER, SELFPAY ==
[2024-10-08 06:44] LABS: MANUAL DIFF FLAG NO
[2024-10-08 07:28] LABS: Basophils Absolute Auto 0.1 X10*3/uL (0.0-0.2); Eosinophils Absolute Auto 0.2 X10*3/uL (0.0-0.4); Eosinophils Percent Auto 2.9 % (0-4); Hematocrit 36.4 % (37.0-47.0); Hemoglobin 12.7 g/dl (12.0-16.0); Imm Gran Abs Auto 0.02 X10*3/uL (0.00-0.03); Imm Gran Pct Auto 0.3 % (0.0-0.4); Immature Retic Fraction 14.1 % (3.0-15.9); Lymphocytes Absolute Auto 1.4 X10*3/uL (1.2-4.9); Lymphocytes Percent Auto 23.4 % (20-40); Mean Corpuscular HGB Conc 34.9 g/dl (31.0-35.0); Mean Corpuscular Hemoglobin 29.3 pg (27.0-33.0); Mean Corpuscular Volume 83.9 fL (80.0-98.0); Mean Platelet Volume 10.4 fL (9.4-12.3); Monocytes Absolute Auto 0.5 X10*3/uL (0.1-1.2); Monocytes Percent Auto 8.6 % (2-11); Neutrophils Absolute Auto 3.8 x10*3/uL (2.0-8.3); Neutrophils Percent Auto 63.8 % (45-73); Platelet Count 352 X10*3/uL (160-400); Red Blood Count 4.34 X10*6/uL (4.20-5.50); Retic HGB Equivalent 31.9 pg (30.0-35.0); Reticulocyte Percent 2.5 % (0.5-1.8); Reticulocytes Absolute 0.108 X10*6/uL (0.026-0.095); White Blood Count 5.9 X10*3/uL (4.8-10.8)
[2024-10-08 07:47] LABS: Alanine Aminotransferase 19 U/L (0-31); Albumin Level 4.1 g/dL (3.5-5.0); Alkaline Phosphatase 72 U/L (39-117); Anion Gap 13 (12-20); Aspartate Amino Transferase 20 U/L (5-31); Bilirubin Total 0.4 mg/dL (0.0-1.0); Blood Urea Nitrogen 11 mg/dL (9-16); Calcium 8.9 mg/dL (8.4-10.2); Carbon Dioxide 23 mmol/L (22-29); Chloride 107 mmol/L (96-108); Cholesterol 196 mg/dL (<200); Estimated Glomerular Filt Rate > 60; Glucose Random 94 mg/dL (60-115); HDL Cholesterol 39 mg/dL (>40); Iron 45 mcg/dL (30-160); LDL Cholesterol Calculated 129 mg/dL (<100); Percent Iron Saturation 12 % (15-50); Potassium 4.4 mmol/L (3.3-5.1); Sodium 139 mmol/L (135-145); Total Iron Binding Capacity 391 mcg/dL (228-428); Total Protein 6.9 g/dL (6.5-8.0); Triglycerides 143 mg/dL (<150); Unsaturated Iron Binding 346 ug/dL
[2024-10-08 07:55] LABS: Appearance Urine Clear; Color Urine Yellow; Glucose Urine UA Negative (Negative); Leukocyte Esterase Urine Negative (Negative); Nitrite Urine Negative (Negative); PH 6.5 (5.0-9.0); Urine Blood Negative (Negative); Urine Ketones Negative (Negative); Urine Protein Negative (Neg-Trace)
[2024-10-08 08:00] LABS: Bacteria Urine None Seen (None Seen); Hyaline Casts Urine 0-2 /LPF (0-2); RBC Urine 0-2 /HPF (0-2); Squamous Epithelial Cell Urine 0-2 /HPF (0-2); WBC Urine 0-5 /HPF (0-5)
[2024-10-08 08:08] LABS: Ferritin 8 ng/mL (10-250); Free T4 (Free Thyroxine) 1.02 ng/dL (0.71-1.85); Thyroid Stimulating Hormone 2.16 uIU/mL (0.32-4.0)
[2024-10-08 08:10] LABS: Folate 9.4 ng/mL (> or = 4.0); Vitamin B12 377 pg/mL (200-900)
== END 2024-10-08 06:27 | disposition home or self-care (01) ==
LOC: HO.LAB 06:26
PROVIDERS: PCP Internal Medicine; Visit Provider Internal Medicine
DX: Z01.818 Encounter for other preprocedural examination (principal); D50.9 Iron deficiency anemia, unspecified; E78.00 Pure hypercholesterolemia, unspecified
CPT/HCPCS: 36415; 80053; 80061; 81001; 82306; 82607; 82728; 82746; 83540; 84439; 84443; 85025; 85045

== ENCOUNTER 2024-10-16 16:00 | Outpatient (AMB) | payer OTHER, SELFPAY ==
[2024-10-16 16:20] VITALS: BP 120/84; PULSE 70; O2SAT 100; BMI 31.3
--- NOTE | 2024-10-16 16:20 | A.OFFPC_ITS ---
Vital Signs 10/16/24 16:20 Height 5 ft 4 in Weight 182 lb 6 oz BMI 31.3 BP 120/84 Blood Pressure Location Lt brachial Position Sitting Pulse 70 Pulse Source Pulse Oximeter Pulse Oximetry (%) 100 Oxygen Delivery Method Room Air Intake Visit Reasons: Annual Exam Intake Note: Patient is here today for a physical. 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 Required: No Accompanied by: Self / Same As Patient Allergies No Known Allergies [No Known Allergies*] Allergy (Verified 10/16/24 16:21) Medication List - Last Reconciled 10/16/24 by Michael Noland MD ascorbic acid (vitamin C) 500 mg PO .QD 30 days cane As directed cholecalciferol (vitamin D3) 50 mcg PO DAILY 30 days cyclobenzaprine 10 mg PO BEDTIME ferrous sulfate (FeroSul) 650 mg (2 x 325 mg (65 mg iron)) PO DAILY Levoxyl (levothyroxine) 88 mcg PO DAILY 90 days NS lidocaine 5% (Lidoderm) 1 patch topical DAILY meloxicam 15 mg PO DAILY 90 days Tobacco use date assessed: 10/16/24 Dental Screening Dental Screen Date: 10/16/24 Did you have a dental visit in the last 12 months?: Yes Did you have a dental problem in the last 6 months where you did not have access to dental care?: No Was dental information given to patient?: Patient has dentist HPI Annual Exam HPI Details 61-year-old overweight male with a histo ry of cervical radicular pain and lumbar radicular pain left shoulder sees of colitis coming in for follow-up. Last seen in 07/23/2024. Other medical problems BPH, hypercholesterolemia nephrolithiasis hypertension GERD. Patient has colon test was done in 2020. Review of the notes has seen spine center regarding the lower back pain seeing pain management interested procedure no evidence of residual nerve compression structural abnormalities. 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 Pain management in September 16 had a procedure done for the left shoulder. last week - left work chest pain, neck and shouolder pain-, CONNOLLY- rx flexeril and gerd med.. seen dentist for antibiotics L molar taken out. CONNOLLY and chest pain - better PFSH Medical History (Updated 10/16/24 @ 17:05 by Michael Noland MD) Anemia Obesity (BMI 30-39.9) Fibromyalgia Vitamin D deficiency Hypothyroidism Surgical History History of biopsy S/P LEEP (loop electrosurgical excision procedure) Hx of wisdom tooth extraction History of esophagogastroduodenoscopy (EGD) Hx of tonsillectomy Hx of tubal ligation Family History (Updated 10/16/24 @ 16:48 by Michael Noland MD) Father Cerebrovascular accident (CVA) Diabetes mellitus Depression Mental health disorder Lung cancer Mother Hypothyroidism Osteoporosis Fibromyalgia Hyperlipidemia Hypertension Depression Mental health disorder Sarcoma Maternal Aunt Thyroid cancer Maternal Uncle Liver cancer Social History (Updated 10/16/24 @ 16:49 by Michael Noland MD) Household Members: Spouse and Children Housing: House Are you a primary hospice care sales consultant to a significant other at home: No Do you presently have visiting nurse or other home services: No Alcohol intake: current Alcohol intake frequency: a few times a week Alcohol type: wine Comment: 2 days weekend 3 glasses Patient Tobacco Use Status: Former Tobacco user Tobacco use type: Cigarette Years Smoked: 1999 quit e-Cigarette/Vaping Use: Never Used Second Hand Smoke Exposure: No service: No Current occupational status: employed Cognitive needs: No Hearing needs: No Vision needs: No Questionnaire PHQ-9 Over the last 2 weeks, how often have you been bothered by any of the following problems? 1. Little interest or pleasure in doing things: not at all 2. Feeling down, depressed, or hopeless: not at all 3. Trouble falling or staying asleep, or sleeping too much: several days 4. Feeling tired or having little energy: several days 5. Poor appetite or overeating: not at all 6. Feeling bad about yourself - or that you are a failure or have let yourself or your family down: not at all 7. Trouble concentrating on things, such as reading the newspaper or watching television: several days 8. Moving or speaking so slowly that other people could have noticed. Or the opposite - being so fidgety or restless that you have been moving around a lot more than usual: not at all 9. Thoughts that you would be better off or of hurting yourself in some way: not at all Total score: 3 58050 - PHQ-9 Billing: Yes Source: Developed by Drs. Yonathan More, Andrez Allison and colleagues, with an educational anu from [employer]. Thrive Questionnaire Date Thrive assessed: 10/16/24 I am a: Patient What is your living situation today?: I have a steady place to live Within the past 12 months, did the food you bought not last and you didn't have the money to get more?: Never true Within the past 12 months, did you worry whether your food would run out before you got money to buy more?: Never true Do you have trouble paying for medicines?: No Do you have trouble getting transportation to medical appointments?: No Do you have trouble paying your heating and electricity bill?: No Do you have trouble taking care of your child, family member or friend?: No Do you have trouble with day-to-day activities such as bathing, preparing meals, shopping, managing finances, etc.?: No Are you currently unemployed and looking for a job?: No Are you interested in more education?: No Please select the resources that you would like help with: None Currently or been in a relationship where the following occur: No concerns reported THRIVE Score: 0 AUDIT C Alcohol Use Questionnaire (AUDIT-C) 1. How often do you have a drink containing alcohol?: 2-4 times a month 2. How many drinks containing alcohol do you have on a typical day when you are drinking?: 3 or 4 3. How often do you have six or more drinks on one occasion?: Less than monthly Total Score: 4 CAREN-7 AMB Questionnaire CAREN-7 Date CAREN - 7 assessed: 10/16/24 Feeling nervous, anxious, or on edge: 1 = Several days Not being able to stop or control worryin = Several days Worrying too much about different things: 1 = Several days Trouble relaxin = Several days Being so restless that it is hard to sit still: 1 = Several days Becoming easily annoyed or irritable: 1 = Several days Feeling afraid as if something awful might happen: 0 = Not at all Total CAREN-7 score (0-4 normal; 5-9 mild; 10-14 moderate; 15-21 severe): 6 Source: Developed by Drs. Yonathan More, Andrez Allison and colleagues, with an educational anu from [employer]. CAREN-7 Assessment Billing CAREN-7 Assessment Tool: CAREN-7 Assessment 95547 Review of Systems Const Denies poor appetite and Denies weakness Eyes Denies no additional complaints ENT Reports Normal hearing present, Denies dizziness, Denies nasal congestion, Denies tinnitus and Denies sore throat Card Denies chest pain, Denies syncope, Denies rapid heart rate and Denies dyspnea Resp Denies cough and Denies dyspnea GI Denies change in stool character, Reports constipation, Denies diarrhea, Denies nausea and Denies vomiting Denies urinary frequency, Denies difficulty voiding and Denies dysuria Neuro Reports Normal hearing present, Denies confusion, Denies dizziness, Denies syncope and Denies weakness Psych Denies confusion Physical exam (Primary Care) Vital Signs: Last Vital Signs Pulse 70 10/16/24 16:20 BP 120/84 10/16/24 16:20 Pulse Ox 100 10/16/24 16:20 Oxygen Delivery Method Room Air 10/16/24 16:20 BMI result Body Mass Index 31.3 Tobacco/Smoking Status: Tobacco use Status Tobacco use date assessed 10/16/24 10/16/24 16:22 Patient Tobacco Use Status Former Tobacco user 10/16/24 16:22 Tobacco use type Cigarette 10/16/24 16:22 e-Cigarette/Vaping Use Never Used 10/16/24 16:22 PHQ-9: PHQ-9 Score PHQ-9: Total score 3 10/16/24 16:22 Thrive Assessment: Date of Thrive Assessment Date Thrive assessed 10/16/24 10/16/24 16:22 Currently or been in a relationship where the following occur: No concerns reported Const General: No confusion Orientation/consciousness: No confusion HENMT Head: Yes normocephalic Ears: external ears normal and TM's normal bilaterally Face and sinus: Yes normal facial exam Mouth: moist mucous membranes Throat: Yes tonsils normal Eyes Conjunctivae: conjunctivae normal Pupils: Equal, round and reactive pupils present and Pupil accommodation reflex normal Direct Ophthalmoscopy: normal light reflex Neck Neck: No lymphadenopathy Thyroid: Thyroid normal Chest Chest palpation & inspection: normal inspection of the chest Resp Effort & Inspection: normal respiratory effort and no audible wheezes Auscultation: clear to auscultation bilaterally, no crackles, no wheezes and lung sounds not diminished Cardio Rate: regular rate Rhythm: regular rhythm Peripheral pulses: radial pulses present and dorsalis pedis present GI Palpation (GI): no masses Auscultation: normal bowel sounds and normoactive bowel sounds Rectal Exam - Female: deferred Skin General skin exam: no rashes or lesions noted Rashes: no rashes Neuro General: No confusion Cranial nerves: Yes Equal, round and reactive pupils present and Yes Normal hearing present Cognition (Neuro): normal cognition Gait exam (Neuro): Normal gait present Motor exam (neuro): 5/5 motor strength present throughout Deep tendon reflexes (DTR's): Right brachioradialis reflex intensity grade: 2+, Left brachioradialis reflex intensity grade: 2+, Right patellar reflex intensity grade: 2+ and Left patellar reflex intensity grade: 2+ Extrem General: No edema Office Procedures Flu Questionnaire Does the patient have a severe egg allergy?: No Does the patient have severe life threatening allergies?: No Does the patient have a fever or illness today?: No Has the patient ever had Guillain-[place] Syndrome?: No Has the patient ever had any past reaction to a flu shot?: No Immunizations Fluarix Triv [id number] (PF) 45 mcg (15 mcg x 3)/0.5 mL IM syringe Performing Provider: Michael Noland MD [facility] Administered by: ARIEL Schwartz on 10/16/24 16:29 Dose Route Admin Location Dispensed Lot Number Expiration Date NDC Occupational Therapist Assistants 0.5 mL IM Left Deltoid 0.5 mL [id number] 05/25/25 [id number] [employer] VIS Given Date VIS Provided VIS Publication Date 10/16/24 Single Vaccine 21 Eligibility Eligibility Date Funding Source Not [facility] Eligible 10/16/24 Private Coding Level of Care Code Est Pt Prev Care 40-64y(67421) Diagnoses Annual physical exam Z00.00 Iron deficiency anemia, unspecified iron deficiency anemia type D50.9 Iron deficiency anemia type: unspecified iron deficiency Gastroesophageal reflux disease without esophagitis K21.9 Esophagitis presence: without esophagitis 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; E06.3 Hypothyroidism type: due to Adan's thyroiditis Obesity (BMI 30-39.9) E66.9 Generalized anxiety disorder F41.1 Slow transit constipation K59.01 Constipation type: slow transit constipation Left thigh pain M79.652 Additional Codes CAREN-7 Assessment Billing - CAREN-7 Assessment Tool: CAREN-7 Assessment 59304 ([id number]) PHQ-9 - 54069 - PHQ-9 Billing: Yes ([id number]) Assessment & Plan Assessment & Plan (1) Annual physical exam: Code(s): Z00.00 - Encounter for general adult medical examination without abnormal findings Category: Medical Plan: Patient is advised to eat healthy, keep well hydrated, keep active and have adequate sleep. (2) Iron deficiency anemia: Code(s): D50.9 - Iron deficiency anemia, unspecified Category: Medical Qualifiers: Iron deficiency anemia type: unspecified iron deficiency Qualified Code(s): D50.9 - Iron deficiency anemia, unspecified Plan: Resolved but will need iron still (3) GERD (gastroesophageal reflux disease): Code(s): K21.9 - Gastro-esophageal reflux disease without esophagitis Category: Medical Qualifiers: Esophagitis presence: without esophagitis Qualified Code(s): K21.9 - Gastro-esophageal reflux disease without esophagitis Plan: Avoid the foods that causes that usually spicy foods, tomato products, juices, coffee, soda and foods that your sensitive to. After eating do not lie down, allow 3-4 hours before in lie down. And keep the head of bed above 30 degrees to avoid the acid from going up. (4) Hypothyroidism: Code(s): E03.9 - Hypothyroidism, unspecified Category: Medical Qualifiers: Hypothyroidism type: due to Adan's thyroiditis Qualified Code(s): E03.8 - Other specified hypothyroidism; E06.3 - Autoimmune thyroiditis Plan: Continue with thyroid medication (5) Obesity (BMI 30-39.9): Code(s): E66.9 - Obesity, unspecified Category: Medical Plan: diet and exercise (6) Generalized anxiety disorder: Code(s): F41.1 - Generalized anxiety disorder Category: Medical Plan: stable (7) Constipation: Code(s): K59.00 - Constipation, unspecified Category: Medical Qualifiers: Constipation type: slow transit constipation Qualified Code(s): K59.01 - Slow transit constipation Plan: Three rules for constipation 1. Diet need to have a high fiber diet less of meat 2. Increase oral fluids 3. Exercise (8) Left thigh pain: Code(s): M79.652 - Pain in left thigh Category: Medical Plan: advised to get physical therapy, question of iliotibial band Orders: Orders Influenza [id number] Immunization Today Z23 - Encounter for immunization PT Evaluation and Treatment Today M79.652 - Pain in left thigh Medications: New sennosides-docusate sodium 8.6-50 mg (Senna Plus) 2 tab-caps (2 x 8.6-50 mg) PO BEDTIME 60 caps 2RF K59.00 - Constipation, unspecified
== END 2024-10-16 17:06 | disposition home or self-care (01) ==
PROVIDERS: PCP Internal Medicine; Visit Provider Internal Medicine
DX: Z00.00 Encounter for general adult medical examination without abnormal findings (principal); D50.9 Iron deficiency anemia, unspecified; E66.9 Obesity, unspecified; Z68.31 Body mass index [BMI] 31.0-31.9, adult; K21.9 Gastro-esophageal reflux disease without esophagitis; E03.8 Other specified hypothyroidism; E06.3 Autoimmune thyroiditis; F41.1 Generalized anxiety disorder; K59.01 Slow transit constipation; M79.652 Pain in left thigh

== ENCOUNTER → 2024-10-16 16:00 | Outpatient (BNVA) | payer OTHER, SELFPAY | PROVIDERS: PCP Internal Medicine; Visit Provider Internal Medicine | DX: Z00.00 Encounter for general adult medical examination without abnormal findings (principal); Z23 Encounter for immunization; D50.9 Iron deficiency anemia, unspecified; K21.9 Gastro-esophageal reflux disease without esophagitis; E03.8 Other specified hypothyroidism; E06.3 Autoimmune thyroiditis; E66.9 Obesity, unspecified; Z68.31 Body mass index [BMI] 31.0-31.9, adult; F41.1 Generalized anxiety disorder; K59.01 Slow transit constipation; M79.652 Pain in left thigh | CPT/HCPCS: 90471; 90656; 96127 ==

== ENCOUNTER 2024-11-24 14:47 | Outpatient (AMB) | payer OTHER, SELFPAY ==
--- OUTSIDE RECORDS SUMMARY | 2024-11-24 14:49 | XMS_ITS ---
Author Name [facility] Organization Unknown History of Medication Use Medication Directions Dispensed Refills Start Date End Date [facility] amoxicillin 875 mg tablet TAKE 1 TABLET BY MOUTH TWICE DAILY UNTIL ALL TAKEN 03/09/2024 active FeroSul 325 mg (65 mg iron) tablet TAKE 2 TABLETS BY MOUTH EVERY DAY 04/18/2023 active sulfamethoxazole 800 mg-trimethoprim 160 mg tablet TAKE 1 TABLET BY MOUTH TWICE DAILY FOR 7 DAYS 04/18/2023 completed ibuprofen 600 mg tablet 05/16/2023 active aspirin 81 mg tablet,delayed release TAKE 1 TABLET BY MOUTH TWICE DAILY 04/18/2023 completed metronidazole 0.75 % (37.5 mg/5 gram) vaginal gel INSERT VAGINALLY AT BEDTIME FOR 5 NIGHTS 05/16/2023 completed ondansetron 8 mg disintegrating tablet DISSOLVE 1 TABLET ON THE TONGUE EVERY 8 HOURS NEEDED FOR NAUSEA OR VOMITING 05/16/2023 completed aspirin 81 mg tablet Take 1 mg twice a day by oral route. 05/24/2023 completed meloxicam 15 mg tablet TAKE 1 TABLET BY MOUTH DAILY 04/19/2023 active Stimulant Laxative Plus 8.6 mg-50 mg tablet TAKE 2 TABLETS BY MOUTH AT BEDTIME. STOP WHEN NARCOTICS ARE STOPPED 04/18/2023 completed aspirin 81 mg tablet,delayed release TAKE 1 TABLET BY MOUTH TWICE DAILY 05/16/2023 completed Vitamin C 500 mg tablet TAKE 1 TABLET BY MOUTH EVERY DAY 05/24/2023 active Stimulant Laxative Plus 8.6 mg-50 mg tablet TAKE 2 TABLETS BY MOUTH AT BEDTIME. STOP WHEN NARCOTICS ARE STOPPED 05/16/2023 completed aspirin 81 mg tablet Take 1 mg twice a day by oral route. 2023 completed acetaminophen 500 mg tablet TAKE 2 TABLETS BY MOUTH EVERY 8 HOURS 05/16/2023 completed terbinafine HCl 250 mg tablet 05/16/2023 active ibuprofen 800 mg tablet TAKE 1 TABLET BY MOUTH EVERY 8 HOURS NEEDED FOR PAIN 04/18/2023 completed aspirin 81 mg tablet,delayed release TAKE 1 TABLET BY MOUTH TWICE DAILY 05/16/2023 completed Vitamin C 500 mg tablet TAKE 1 TABLET BY MOUTH EVERY DAY 05/24/2023 active pantoprazole 2023 complete d methocarbamol 750 mg tablet 04/18/2023 completed sulfamethoxazole 800 mg-trimethoprim 160 mg tablet TAKE 1 TABLET BY MOUTH TWICE DAILY FOR 7 DAYS 05/16/2023 completed Euflexxa 10 mg/mL (mw 2.4-3.6 million) intra-articular syringe 04/19/2023 completed pantoprazole 40 mg tablet,delayed release TAKE 1 TABLET BY MOUTH DAILY BEFORE A MEAL 04/18/2023 completed methocarbamol 750 mg tablet 05/16/2023 active pantoprazole 05/24/2023 complete d terbinafine HCl 250 mg tablet 04/18/2023 completed acetaminophen 500 mg tablet TAKE 2 TABLETS BY MOUTH EVERY 8 HOURS 04/19/2023 completed ibuprofen 800 mg tablet TAKE 1 TABLET BY MOUTH EVERY 8 HOURS NEEDED FOR PAIN 05/16/2023 completed estradiol 0.01% (0.1 mg/gram) vaginal cream 04/18/2023 ac tive oxycodone 5 mg tablet TAKE 1 TO 2 TABLETS BY MOUTH EVERY 4 TO 6 HOURS NEEDED FOR SEVERE PAIN 05/16/2023 completed Levoxyl 88 mcg tablet TAKE 1 TABLET BY MOUTH DAILY 05/16/2023 active estradiol 0.01% (0.1 mg/gram) vaginal cream 05/16/2023 ac tive ondansetron 8 mg disintegrating tablet DISSOLVE 1 TABLET ON THE TONGUE EVERY 8 HOURS NEEDED FOR NAUSEA OR VOMITING 04/19/2023 completed tizanidine 4 mg tablet TAKE 1 TABLET BY MOUTH AT BEDTIME NEEDED FOR MUSCLE SPASMS 05/16/2023 active Vitamin C 500 mg tablet 2 mg every day by oral route. 2023 active Vitamin D3 25 mcg (1,000 unit) capsule 1 microgram every day by oral route. 2023 active Vitamin D3 25 mcg (1,000 unit) capsule 1 microgram every day by oral route. 05/24/2023 active pantoprazole 40 mg tablet,delayed release TAKE 1 TABLET BY MOUTH DAILY BEFORE A MEAL 05/16/2023 completed tizanidine 4 mg tablet TAKE 1 TABLET BY MOUTH AT BEDTIME NEEDED FOR MUSCLE SPASMS 05/24/2023 active meloxicam 15 mg tablet TAKE 1 TABLET BY MOUTH DAILY 05/16/2023 active oxycodone 5 mg tablet TAKE 1 TO 2 TABLETS BY MOUTH EVERY 4 TO 6 HOURS NEEDED FOR SEVERE PAIN 04/18/2023 completed Levoxyl 88 mcg tablet TAKE 1 TABLET BY MOUTH DAILY 04/18/2023 active ibuprofen 600 mg tablet 04/18/2023 active metronidazole 0.75 % (37.5 mg/5 gram) vaginal gel INSERT VAGINALLY AT BEDTIME FOR 5 NIGHTS 04/18/2023 completed Euflexxa 10 mg/mL (mw 2.4-3.6 million) intra-articular syringe 05/16/2023 completed ferrous sulfate 325 mg (65 mg iron) tablet 2 mg every day by oral route. 05/16/2023 active Problems Problem Status Onset Date Problem Type Date of Resoluti on Source Arthritis of right hip active 2023-04-17 ProblemAct [facility] History of total hip arthroplasty active 2023-05-14 ProblemAct [facility] Multiple joint pain active 2023-06-21 ProblemAct [facility] Pain in right hip joint active 2023-03-23 ProblemAct [facility]
[2024-11-24 14:57] VITALS: BP 140/88; PULSE 73; O2SAT 96; BMI 31.7
--- NOTE | 2024-11-24 14:57 | A.OFFPC_ITS ---
Vital Signs 3 11/24/24 14:57 Height 5 ft 4 in Weight 184 lb 8 oz BMI 31.7 BP 140/88 H Blood Pressure Location Lt brachial Position Sitting Pulse 73 Pulse Source Pulse Oximeter Pulse Oximetry (%) 96 Oxygen Delivery Method Room Air Intake Visit Reasons: lump found in breast Allergies No Known Allergies [No Known Allergies*] Allergy (Verified 11/24/24 15:01) Tobacco use date assessed: 11/24/24 Dental Screening Dental Screen Date: 10/16/24 HPI lump found in breast 2 HPI0 Details 2 weeks ago noted R breast mass The patient is a 44-year-old female presenting with issues related to her breast examination and postoperative back symptoms. Approximately two weeks ago, there was a concern involving her 's observation of a condition related to the rightbreast,which prompted a checkup. palpable abnormalities were identified on the right side of the breast. Despite being up to date with her regular mammograms, including the customary December schedule, further diagnostic procedures such as a specific ultrasound and mammogram have been planned for a detailed assessment. In addition to breast concerns, the patient mentioned a postoperative issue regarding numbness and burning sensations in the left back area following her hip surgery. This sensation, characterized as numbness with a burning and stinging quality, began postoperatively and persists without significant improvement. The sensation is localized without radiation toward the front. It appears more pronounced while showering when tactile stimulation elicits a heightened burning feeling. Despite these concerns, the sensation's characteristics are distinct from other typical pain symptoms, and there is no apparent improvement or worsening over time. [facility] Medical History (Updated 11/24/24 @ 15:29 by Michael Noland MD) Anemia Obesity (BMI 30-39.9) Fibromyalgia Vitamin D deficiency Hypothyroidism Surgical History History of biopsy S/P LEEP (loop electrosurgical excision procedure) Hx of wisdom tooth extraction History of esophagogastroduodenoscopy (EGD) Hx of tonsillectomy Hx of tubal ligation Family History (Updated 10/16/24 @ 16:48 by Michael Noland MD) Father Cerebrovascular accident (CVA) Diabetes mellitus Depression Mental health disorder Lung cancer Mother Hypothyroidism Osteoporosis Fibromyalgia Hyperlipidemia Hypertension Depression Mental health disorder Sarcoma Maternal Aunt Thyroid cancer Maternal Uncle Liver cancer Social History (Updated 10/16/24 @ 16:49 by Michael Noland MD) Household Members: Spouse and Children Housing: House Are you a primary reproductive healthcare assistant to a significant other at home: No Do you presently have visiting nurse or other home services: No Alcohol intake: current Alcohol intake frequency: a few times a week Alcohol type: wine Comment: 2 days weekend 3 glasses Patient Tobacco Use Status: Former Tobacco user Tobacco use type: Cigarette Years Smoked: 1999 quit e-Cigarette/Vaping Use: Never Used Second Hand Smoke Exposure: No service: No Current occupational status: employed Cognitive needs: No Hearing needs: No Vision needs: No Questionnaire Thrive Questionnaire Date Thrive assessed: 10/09/24 I am a: Patient What is your living situation today?: I have a steady place to live Within the past 12 months, did the food you bought not last and you didn't have the money to get more?: Never true Within the past 12 months, did you worry whether your food would run out before you got money to buy more?: Never true Do you have trouble paying for medicines?: No Do you have trouble getting transportation to medical appointments?: No Do you have trouble paying your heating and electricity bill?: No Do you have trouble taking care of your child, family member or friend?: No Do you have trouble with day-to-day activities such as bathing, preparing meals, shopping, managing finances, etc.?: No Are you currently unemployed and looking for a job?: No Are you interested in more education?: No Please select the resources that you would like help with: None Currently or been in a relationship where the following occur: No concerns reported THRIVE Score: 0 CAREN-7 AMB Questionnaire CAREN-7 Date CAREN - 7 assessed: 10/16/24 Source: Developed by Drs. Yonathan More, Tiffanie Dixon, Andrez Delaney and colleagues, with an educational anu from [employer]. Physical exam (Primary Care) Vital Signs: Last Vital Signs Pulse 73 11/24/24 14:57 BP 140/88 H 11/24/24 14:57 Pulse Ox 96 11/24/24 14:57 Oxygen Delivery Method Room Air 11/24/24 14:57 BMI result Body Mass Index 31.7 Tobacco/Smoking Status: Tobacco use Status Tobacco use date assessed 11/24/24 11/24/24 15:03 Patient Tobacco Use Status Former Tobacco user 11/24/24 14:58 Tobacco use type Cigarette 11/24/24 14:58 e-Cigarette/Vaping Use Never Used 11/24/24 14:58 Thrive Assessment: Date of Thrive Assessment Date Thrive assessed 10/09/24 11/24/24 14:58 Currently or been in a relationship where the following occur: No concerns reported Chest Chest/axillae images: 2 1. dense breast on palpation bilateral but with 2 x 3 cm mass on 8 o'clock position Back/Spine/Pelvis Back/spine/pelvis image: 2 1. tender on palpation on the L mid back no swelling no redness Coding Level of Care Code Est Pt Level 3 (48353) Diagnoses Breast mass, right N63.10 Assessment & Plan Assessment & Plan (1) Breast mass, right: Code(s): N63.10 - Unspecified lump in the right breast, unspecified quadrant Category: Medical Plan: dense breast on palpation bilateral but with 2 x 3 cm mass on 8 o'clock position Plan - Request an additional diagnostic mammogram to provide a detailed assessment, emphasizing diagnostic details. - Schedule an ultrasound focusing on the right breast for comprehensive evaluation. - Monitor numbness and burning sensation in the back; no immediate physical therapy is recommended, but the continuation of observation is advised. - Maintain regular follow-up for any changes in symptoms or need for further intervention. Orders: Orders 2 MM diagnostic mammo BI Today N63.10 - Unspecified lump in the right breast, unspecified quadrant US breast RT limited Today N63.10 - Unspecified lump in the right breast, unspecified quadrant
== END 2024-11-24 15:39 | disposition home or self-care (01) ==
PROVIDERS: PCP Internal Medicine; Visit Provider Internal Medicine
DX: N63.10 Unspecified lump in the right breast, unspecified quadrant (principal)

== ENCOUNTER 2024-12-04 11:10 | Outpatient (REF) | payer OTHER, SELFPAY ==
--- NOTE | ~2024-12-04 | US_ITS ---
EXAMINATION: MM DIAGNOSTIC DIGITAL BREAST TOMOSYNTHESIS, BILATERAL Limited right breast ultrasound. CLINICAL INFORMATION: Right breast palpable lump and tenderness. COMPARISON: Mammography: Comparison is made with relevant prior exams. TECHNIQUE: Digital breast mammography with tomosynthesis is performed in both the craniocaudal and mediolateral oblique views along with computer-aided detection (CAD). Limited right breast ultrasound. FINDINGS: The breasts are heterogeneously dense, which may obscure small masses (ACR BI-RADS breast composition Category c). Bilateral focal asymmetries are stable. Triangular palpable markers in the central outer breast and central inner breast without underlying abnormality. There are no significant masses, abnormal calcifications, or other abnormalities. Targeted color Doppler ultrasound scanning in the area the patient's palpable lumps in the upper inner quadrant and lower outer quadrant demonstrates normal fibroglandular breast tissue. There is no sonographic abnormality. Results are provided to the patient at time of visit by the technologist. US/US breast RT limited mamm only IMPRESSION: Right: No mammographic or sonographic abnormality to account for the patient's right breast palpable lumps. Recommend clinical evaluation and follow-up. Left: Scattered focal asymmetry stable from multiple priors. Benign. ASSESSMENT: BI-RADS BI-RADS 2 - Benign Findings RECOMMENDATION: 1 year F/U Clinical evaluation and follow-up recommended for palpable lumps. This patient's information was entered into a reminder system with a target due date for their next mammogram. Electronically signed by: Mehreen Arias DO 12/04/2024 12:23 PM [facility] [place]
== END 2024-12-04 11:11 | disposition home or self-care (01) ==
LOC: HO.MAMMO 11:10
PROVIDERS: PCP Internal Medicine; Visit Provider Internal Medicine
DX: N63.10 Unspecified lump in the right breast, unspecified quadrant (principal); N64.4 Mastodynia; N64.89 Other specified disorders of breast; R92.333 Mammographic heterogeneous density, bilateral breasts
CPT/HCPCS: 76642; 77062; 77066

== ENCOUNTER → 2024-12-04 12:00 | Outpatient (BNV) | payer OTHER, SELFPAY | PROVIDERS: PCP Internal Medicine; Visit Provider Internal Medicine | DX: N63.13 Unspecified lump in the right breast, lower outer quadrant (principal) | CPT/HCPCS: 76642; 77062; 77066 ==

== ENCOUNTER 2025-04-15 06:00 | Outpatient (REF) | payer OTHER, SELFPAY ==
[2025-04-15 06:09] LABS: MANUAL DIFF FLAG NO
[2025-04-15 07:38] LABS: Basophils Percent Auto 0.6 % (0-2); Eosinophils Absolute Auto 0.1 X10*3/uL (0.0-0.4); Eosinophils Percent Auto 2.1 % (0-4); Hemoglobin 12.3 g/dl (12.0-16.0); Imm Gran Abs Auto 0.03 X10*3/uL (0.00-0.03); Imm Gran Pct Auto 0.5 % (0.0-0.4); Immature Retic Fraction 20.6 % (3.0-15.9); Lymphocytes Absolute Auto 1.6 X10*3/uL (1.2-4.9); Lymphocytes Percent Auto 24.1 % (20-40); Mean Corpuscular HGB Conc 34.2 g/dl (31.0-35.0); Mean Corpuscular Hemoglobin 29.6 pg (27.0-33.0); Mean Corpuscular Volume 86.5 fL (80.0-98.0); Mean Platelet Volume 10.6 fL (9.4-12.3); Monocytes Absolute Auto 0.5 X10*3/uL (0.1-1.2); Monocytes Percent Auto 7.7 % (2-11); Neutrophils Absolute Auto 4.3 x10*3/uL (2.0-8.3); Platelet Count 340 X10*3/uL (160-400); Red Blood Count 4.16 X10*6/uL (4.20-5.50); Red Cell Distribution Width 15.2 % (11.0-16.0); Retic HGB Equivalent 32.1 pg (30.0-35.0); Reticulocyte Percent 3.2 % (0.5-1.8); Reticulocytes Absolute 0.134 X10*6/uL (0.026-0.095); White Blood Count 6.6 X10*3/uL (4.8-10.8)
[2025-04-15 08:10] LABS: Alanine Aminotransferase 17 U/L (0-31); Alkaline Phosphatase 65 U/L (39-117); Anion Gap 10 (12-20); Aspartate Amino Transferase 18 U/L (5-31); Bilirubin Total 0.3 mg/dL (0.0-1.0); Blood Urea Nitrogen 12 mg/dL (9-16); Calcium 8.5 mg/dL (8.4-10.2); Carbon Dioxide 27 mmol/L (22-29); Chloride 107 mmol/L (96-108); Cholesterol 195 mg/dL (<200); Estimated Glomerular Filt Rate > 60; Glucose Random 81 mg/dL (60-115); HDL Cholesterol 42 mg/dL (>40); Iron 292 mcg/dL (30-160); LDL Cholesterol Calculated 129 mg/dL (<100); Magnesium 2.2 mg/dL (1.6-2.6); Percent Iron Saturation 76 % (15-50); Potassium 4.4 mmol/L (3.3-5.1); Sodium 140 mmol/L (135-145); Total Iron Binding Capacity 386 mcg/dL (228-428); Total Protein 6.5 g/dL (6.5-8.0); Triglycerides 121 mg/dL (<150); Unsaturated Iron Binding 94 ug/dL
[2025-04-15 08:29] LABS: Ferritin 29 ng/mL (10-250); Free T4 (Free Thyroxine) 0.91 ng/dL (0.71-1.85); Thyroid Stimulating Hormone 5.26 uIU/mL (0.32-4.0)
[2025-04-15 08:33] LABS: Vitamin B12 368 pg/mL (200-900)
== END 2025-04-15 06:01 | disposition home or self-care (01) ==
LOC: HO.LAB 06:00
PROVIDERS: PCP Internal Medicine; Visit Provider Internal Medicine
DX: D50.9 Iron deficiency anemia, unspecified (principal); E03.8 Other specified hypothyroidism; E06.3 Autoimmune thyroiditis; E78.00 Pure hypercholesterolemia, unspecified
CPT/HCPCS: 36415; 80053; 80061; 82607; 82728; 82746; 83540; 83735; 84439; 84443; 85025; 85045

== ENCOUNTER 2025-04-17 15:27 | Outpatient (AMB) | payer OTHER, SELFPAY ==
[2025-04-17 15:38] VITALS: BP 124/80; PULSE 72; TEMP 36.2; O2SAT 100; BMI 31.8
--- NOTE | 2025-04-17 15:38 | MHC.PC.OV ---
Vital Signs 04/17/25 15:38 Height 5 ft 4 in Weight 185 lb 6 oz BMI 31.8 BP 124/80 Blood Pressure Location Lt brachial Position Sitting Pulse 72 Pulse Source Pulse Oximeter Temp 97.1 F Temp Source Temporal Artery Scan Pulse Oximetry (%) 100 Oxygen Delivery Method Room Air Intake Visit Reasons: FOLLOW UP 6 MONTHS Case Technician Required: No Accompanied by: Self / Same As Patient Allergies No Known Allergies [No Known Allergies*] Allergy (Verified 04/17/25 15:48) Medication List - Last Reconciled 04/17/25 by Michael Noland MD ascorbic acid (vitamin C) 500 mg PO .QD 30 days cane As directed cholecalciferol (vitamin D3) 50 mcg PO DAILY 30 days cyclobenzaprine 10 mg PO BEDTIME ferrous sulfate (FeroSul) 650 mg (2 x 325 mg (65 mg iron)) PO DAILY Levoxyl (levothyroxine) 88 mcg PO DAILY 90 days NS lidocaine 5% (Lidoderm) 1 patch topical DAILY Tobacco use date assessed: 04/17/25 Dental Screening Dental Screen Date: 04/17/25 Did you have a dental visit in the last 12 months?: Yes Did you have a dental problem in the last 6 months where you did not have access to dental care?: No Was dental information given to patient?: Patient has dentist HPI FOLLOW UP 6 MONTHS HPI Details Pateint is feeling tired a lot problem emotionally of having mom pass away last year and this November father . sleep [facility] Medical History (Updated 11/24/24 @ 15:29 by Michael Noland MD) Anemia Obesity (BMI 30-39.9) Fibromyalgia Vitamin D deficiency Hypothyroidism Surgical History History of biopsy S/P LEEP (loop electrosurgical excision procedure) Hx of wisdom tooth extraction History of esophagogastroduodenoscopy (EGD) Hx of tonsillectomy Hx of tubal ligation Family History (Updated 10/16/24 @ 16:48 by Michael Noland MD) Father Cerebrovascular accident (CVA) Diabetes mellitus Depression Mental health disorder Lung cancer Mother Hypothyroidism Osteoporosis Fibromyalgia Hyperlipidemia Hypertension Depression Mental health disorder Sarcoma Maternal Aunt Thyroid cancer Maternal Uncle Liver cancer Social History (Updated 10/16/24 @ 16:49 by Michael Noland MD) Household Members: Spouse and Children Housing: House Are you a primary home care provider to a significant other at home: No Do you presently have visiting nurse or other home services: No Alcohol intake: current Alcohol intake frequency: a few times a week Alcohol type: wine Comment: 2 days weekend 3 glasses Patient Tobacco Use Status: Former Tobacco user Tobacco use type: Cigarette Years Smoked: 1999 quit e-Cigarette/Vaping Use: Never Used Second Hand Smoke Exposure: No service: No Current occupational status: employed Cognitive needs: No Hearing needs: No Vision needs: No Questionnaire PHQ-9 Over the last 2 weeks, how often have you been bothered by any of the following problems? 1. Little interest or pleasure in doing things: several days 2. Feeling down, depressed, or hopeless: several days 3. Trouble falling or staying asleep, or sleeping too much: several days 4. Feeling tired or having little energy: several days 5. Poor appetite or overeating: not at all 6. Feeling bad about yourself - or that you are a failure or have let yourself or your family down: not at all 7. Trouble concentrating on things, such as reading the newspaper or watching television: several days 8. Moving or speaking so slowly that other people could have noticed. Or the opposite - being so fidgety or restless that you have been moving around a lot more than usual: not at all 9. Thoughts that you would be better off or of hurting yourself in some way: not at all Total score: 5 Source: Developed by Drs. Yonathan More, Tiffanie Dixon, Andrez Delaney and colleagues, with an educational anu from [employer]. Thrive Questionnaire Date Thrive assessed: 10/09/24 I am a: Patient What is your living situation today?: I have a steady place to live Within the past 12 months, did the food you bought not last and you didn't have the money to get more?: Never true Within the past 12 months, did you worry whether your food would run out before you got money to buy more?: Never true Do you have trouble paying for medicines?: No Do you have trouble getting transportation to medical appointments?: No Do you have trouble paying your heating and electricity bill?: No Do you have trouble taking care of your child, family member or friend?: No Do you have trouble with day-to-day activities such as bathing, preparing meals, shopping, managing finances, etc.?: No Are you currently unemployed and looking for a job?: No Are you interested in more education?: No Please select the resources that you would like help with: None Currently or been in a relationship where the following occur: No concerns reported THRIVE Score: 0 AUDIT C Alcohol Use Questionnaire (AUDIT-C) 1. How often do you have a drink containing alcohol?: 2-3 times a week 2. How many drinks containing alcohol do you have on a typical day when you are drinking?: 3 or 4 3. How often do you have six or more drinks on one occasion?: Less than monthly Total Score: 5 CAREN-7 AMB Questionnaire CAREN-7 Date CAREN - 7 assessed: 10/16/24 Feeling nervous, anxious, or on edge: 1 = Several days Not being able to stop or control worryin = Several days Worrying too much about different things: 1 = Several days Trouble relaxin = Several days Being so restless that it is hard to sit still: 0 = Not at all Becoming easily annoyed or irritable: 1 = Several days Feeling afraid as if something awful might happen: 0 = Not at all Total CAREN-7 score (0-4 normal; 5-9 mild; 10-14 moderate; 15-21 severe): 5 Source: Developed by Drs. Yonathan More, Tiffanie Dixon, Andrez Delaney and colleagues, with an educational anu from [employer]. Physical exam (Primary Care) Vital Signs: Last Vital Signs Temp 97.1 F 04/17/25 15:38 Pulse 72 04/17/25 15:38 BP 124/80 04/17/25 15:38 Pulse Ox 100 04/17/25 15:38 Oxygen Delivery Method Room Air 04/17/25 15:38 BMI result Body Mass Index 31.8 Tobacco/Smoking Status: Tobacco use Status Tobacco use date assessed 04/17/25 04/17/25 15:50 Patient Tobacco Use Status Former Tobacco user 04/17/25 15:39 Tobacco use type Cigarette 04/17/25 15:39 e-Cigarette/Vaping Use Never Used 04/17/25 15:39 PHQ-9: PHQ-9 Score PHQ-9: Total score 5 04/17/25 15:39 Thrive Assessment: Date of Thrive Assessment Date Thrive assessed 10/09/24 04/17/25 15:39 Currently or been in a relationship where the following occur: No concerns reported Const General: alert; No acute distress Eyes Conjunctivae: conjunctivae normal Resp Auscultation: clear to auscultation bilaterally Cardio Rate: regular rate Rhythm: regular rhythm GI Inspection: Yes normal to inspection Extrem General: Yes normal to inspection and No edema Coding Level of Care Code Est Pt Level 4 (31042) Diagnoses Breast mass, right N63.10 Iron deficiency anemia, unspecified iron deficiency anemia type D50.9 Iron deficiency anemia type: unspecified iron deficiency Gastroesophageal reflux disease without esophagitis K21.9 Esophagitis presence: without esophagitis Generalized anxiety disorder F41.1 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; E06.3 Hypothyroidism type: due to Adan's thyroiditis Assessment & Plan Assessment & Plan (1) Breast mass, right: Code(s): N63.10 - Unspecified lump in the right breast, unspecified quadrant Category: Medical Plan: Ultrasound and mammogram negative advised follow-up in 1 year (2) Iron deficiency anemia: Code(s): D50.9 - Iron deficiency anemia, unspecified Category: Medical Qualifiers: Iron deficiency anemia type: unspecified iron deficiency Qualified Code(s): D50.9 - Iron deficiency anemia, unspecified Plan: Resolved (3) GERD (gastroesophageal reflux disease): Code(s): K21.9 - Gastro-esophageal reflux disease without esophagitis Category: Medical Qualifiers: Esophagitis presence: without esophagitis Qualified Code(s): K21.9 - Gastro-esophageal reflux disease without esophagitis Plan: Avoid the foods that causes that usually spicy foods, tomato products, juices, coffee, soda and foods that your sensitive to. After eating do not lie down, allow 3-4 hours before in lie down. And keep the head of bed above 30 degrees to avoid the acid from going up. (4) Generalized anxiety disorder: Code(s): F41.1 - Generalized anxiety disorder Category: Medical Plan: Stable (5) Hypothyroidism: Code(s): E03.9 - Hypothyroidism, unspecified Category: Medical Qualifiers: Hypothyroidism type: due to Adan's thyroiditis Qualified Code(s): E03.8 - Other specified hypothyroidism; E06.3 - Autoimmune thyroiditis Plan: Continue with thyroid medication an 88 mcg once a day and need to retest Plan History of Present Illness The patient is a 44-year-old female presenting for a follow-up due to multiple ongoing health concerns. She has a past diagnosis of a palpable right breast lump for which imaging was negative, with a recommendation for annual follow-up. Her iron deficiency anemia has resolved, and she is currently managing obesity, hypothyroidism, and anxiety disorder. Her musculoskeletal health is compromised due to knee osteoarthritis, which limits mobility and contributes to her weight management struggle. Recent personal losses have heightened her anxiety, affecting her daily activities. Perimenopausal symptoms, including hot flashes and vision changes, have emerged. She reports discomfort from skin changes, interpreted as benign by initial evaluation. Current medications and treatment include thyroid therapy and lifestyle modifications, alongside a review of her overall mental and physical health. Health Maintenance - Recommended follow-up for breast imaging in one year. - Adequate thyroid management with levothyroxine at 88 mcg daily. - Counseling on the importance of consistent supplementation with vitamins, including vitamin D and possible re-initiation of enzymes for digestive support. - Encouragement of regular exercise to aid weight management and mitigate arthritis symptoms. - Recommendation of melatonin use to improve sleep patterns. - Informed about skin changes being benign, with reassurance. 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 - Engages in exercise, despite challenges with motivation and energy. - Struggling with weight management due to arthritis-related pain. - Recent family stress due to the bereavement of parents noted, affecting emotional well-being. Review of Systems - General: Reports difficulty with weight management. - Musculoskeletal: Reports hip and knee arthritis pain, occasional swelling, denied other joint pain. - Dermatologic: Reports new onset of red skin dots identified as vascular lesions. - Neurological: Reports vision changes, denies headaches. - Psychological: Reports increased anxiety, recent emotional distress. - Gastrointestinal: Denies current gastrointestinal disturbances. Reports ongoing senna use for constipation management. - Endocrine: Reports stable thyroid control under current medication dosage. Physical Exam - Musculoskeletal- Noted discomfort in knee area. Results - Tests: Right breast lump evaluated via ultrasound and mammogram, showing no abnormalities. Scattered asymmetry identified on the left breast?follow-up recommended in one year. - Labs: Previous blood count, including iron levels, within normal limits after repletion. Plan I will maintain the patient's current regimen of thyroid hormone therapy, with planned monitoring of thyroid levels. Initiation of duloxetine will address anxiety and pain management, with dose adaptations over time. The option to revisit joint intervention for arthritis will depend on symptom progression, balanced against lifestyle adjustments and pain management strategies. Continued efforts in weight management through consistent activity, alongside melatonin for sleep normalization, are advised. Dermatologic observations are recognized as benign. Follow-up imaging for breast health will continue on an annual basis. Ongoing assessment of perimenopausal status will inform future treatment needs. Patient was informed and verbally consented to the use of an ambient scribe for clinic note documentation during this visit. Discussion Notes I discussed the continuation of the current thyroid hormone therapy, ensuring levels are within the therapeutic range for symptom control. Duloxetine was introduced considering its dual role in managing anxiety and chronic pain symptoms, initially at a low dose, with plans to titrate upwards. The potential benefits of pain management optimization versus risks were detailed, emphasizing the patient?s input in her arthritis care strategy. I reinforced the importance of maintaining an active lifestyle to offset weight challenges and provided reassurance about skin findings as benign. I outlined plans for scheduled breast health follow-up and reiterated the focus on monitoring hormonal changes potentially linked with perimenopausal symptoms. I arranged for a thyroid ultrasound and possible endocrinology consultation, based on historical nodules in the patient's family. Patient Instructions - Continue thyroid medication as prescribed. - Start taking duloxetine at night, initially at a low dose. - Engage in regular exercise to help with weight management and joint health. - Use melatonin consistently to improve sleep. - Monitor any new or worsening symptoms. - Schedule a thyroid scan and follow up with endocrinology as advised. - Attend annual breast imaging follow-up. - Do not pick at skin lesions; report any changes. - Maintain an active lifestyle and manage dietary intake. - Reach out if symptoms escalate or for any uncertainty regarding medications. Orders: Orders US thyroid Today E03.8 - Other specified hypothyroidism, E06.3 - Autoimmune thyroiditis Referrals General Surgery Referral N63.10 - Unspecified lump in the right breast, unspecified quadrant Endocrinology Referral E03.8 - Other specified hypothyroidism, E06.3 - Autoimmune thyroiditis Medications: New duloxetine (Cymbalta) 20 mg PO BID 60 caps 1RF M79.7 - Fibromyalgia
== END 2025-04-17 16:55 | disposition home or self-care (01) ==
LOC: HO.HMCH 15:28
PROVIDERS: PCP Internal Medicine; Visit Provider Internal Medicine
DX: N63.10 Unspecified lump in the right breast, unspecified quadrant (principal); D50.9 Iron deficiency anemia, unspecified; K21.9 Gastro-esophageal reflux disease without esophagitis; F41.1 Generalized anxiety disorder; E03.8 Other specified hypothyroidism; E06.3 Autoimmune thyroiditis

== ENCOUNTER → 2025-04-17 15:27 | Outpatient (BNVA) | payer OTHER, SELFPAY | PROVIDERS: PCP Internal Medicine; Visit Provider Internal Medicine | DX: Z13.89 Encounter for screening for other disorder (principal) ==

== ENCOUNTER 2025-05-01 16:30 | Outpatient (REF) | payer OTHER, SELFPAY ==
--- OUTSIDE RECORDS SUMMARY | 2025-05-01 16:32 | XMS_ITS | Data Portability ---
Author Organization [place] [facility] [place], [facility] - INPATIENT Address [address] [place] [address] Care Team Providers Care Slasher Tender Name Role Phone PAULO SNOW Primary Care Provider Assessment Encounter Date Assessment Date Assessment LastModified by Organization Details LastModified Time 02/03/2019 02/03/2019 DATA: Review of plain radiographs, pelvis AP, obtained preoperatively in 2013 shows well preserved joint space. Toennis grade 0. Lateral center edge angle measured width 16 degrees consistent with dysplastic morphology. Toennis angle measured width 12 degrees. She has findings consistent with osteophytes in the left head neck junction. Postoperative imaging obtained in 2018 show current osteophytes along the head neck junction but also heterotopic ossification. Well preserved joint space. IMPRESSION: This presents an unfortunate situation with persistent pain after prior hip arthroscopy in 2014. Reviewing the operative report shows there was no obvious labral tear and only femoroplasty was performed and no capsular closure. I am concerned about dysplastic morphology the patient has at baseline, but also some possible recurrent osteophytes as well as heterotopic ossification. On examination she does not seem to have any microinstability. Capsular labrum was not closed. PLAN: I would like to obtain plain radiographs to assess for interval changes and assess for dysplastic morphology as well as progression of possible osteophytes along the head neck junction and heterotopic ossification. I would also like to obtain a new MRI to assess for possible loose bodies, AVN and labral pathology. I would also like her to start physical therapy. I would like her to see my colleague, Dr. Mcdonough, for diagnostic/therapeutic ultrasound-guided injection but also a dynamic ultrasound examination. She will return to the office afterwards. The question would be if revision surgery is indicated. All questions were answered. We asked the patient to obtain intraoperative imaging as well. Not available 02/06/2019 00:41:15 03/31/2019 03/31/2019 DATA: Review of recently obtained left hip MRI showed progression of degenerative changes compared to previous imaging and moderate osteoarthritis. She also has moderate osteoarthritis at the SI joint, more pronounced on the left. Joint effusion was present as well. Large subchondral cyst in the acetabular roof as well as femoral head. Loss of articular cartilage at the acetabular roof as well opposite the femoral head. Subchondral edema as well. IMPRESSION: Progression of left hip osteoarthritis in a fairly young female status post hip arthroscopy at an outside facility a few years ago. Given the extent of the degenerative changes, I am concerned revision hip arthroscopy would not provide predictable outcomes. It would possibly help with some of the mechanical symptoms but not the permanent throbbing pain she is experiencing. PLAN: She will follow up with Dr. Mcdonough for possible viscosupplementation injections. I would also like her to see one of my colleagues at the [facility] performing hip replacement for a discussion of benefits and limitations of that, particularly given her young age. If there was no other viable option I would possibly consider performing arthroscopy, assessment of labrum, possible repair versus debridement versus reconstruction, resection of osteophyte and heterotopic ossification. However since she had some progression of the arthritic changes seen on available imaging already, she is at high risk for persistent pain and early conversion to total hip replacement. All questions were answered. Not available 04/02/2019 23:53:12 Plan of Treatment Reminders Order Date Submit Date Provider Last Modified By Organization Details Last Modified Time Details Appointments None recorded. Lab None recorded. Referral physical therapist referral - Dx: s/p left hip arthrsocopy 2018 019 [email or web address] Not available 9 08:29:39 Procedures None recorded. Surgeries None recorded. Imaging MRI, hip, w/o contrast - APPROVED - AUTH #[id number] GOOD FROM 02/06/19 - 05/07/19.PAS MDPLEASE CALL TO PT TO SCHEDULE APPTDx: s/p left hip arthrscopyP x: left hip MRI, assess for loose bodies, AVN, and labral pathology 2018 019 [facility] Central Scheduling, [address] [place], [address], 9 08:58:44 Medication Orders None recorded. Patient TargetsNo targets recorded. Patient InstructionsNo instructions recorded. Reason for Referral Physical Therapist Referral for Complete tear, hip ligament Dx: s/p left hip arthrsocopy Referring Physician: Diego Ruiz, Orthopedic Surgery, Encounter Date: 02/03/2019 Results Created Date Observation Date Name Description Value Unit Range Abnormal Flag Note LastModifiedBy Organization Detail LastModifiedTime 01/15/20 19 fluor oscop ic guide d injec tion (PROC ) No observ ation record ed. [email or web address] Not Available 2018 09:18:27 01/15/20 19 MRI, hip, w/o contr ast No observ ation record ed. [email or web address] Not Available 2018 09:18:05 01/15/20 19 MR, arthr ogram , hip No observ ation record ed. [email or web address] Not Available 2018 09:17:48 01/15/20 19 fluor oscop ic guide d injec tion (PROC ) No observ ation record ed. [email or web address] Not Available 2018 09:23:46 02/04/20 19 XR, hip, unila teral No observ ation record ed. [email or web address] [facility] [address] [facility], [place], [address], 02/03/2019 10:09:44 02/04/20 19 08/25/2014 intra -kria cular injec tion (PROC ) No observ ation record ed. [email or web address] Not Available 02/05 10:56:54 02/04/20 19 06/16/2014 XR, hip, bilat eral, 2 view No observ ation record ed. [email or web address] Not Available 2018 07:56:14 02/04/20 19 09/10/2014 MRI, hip, w/o contr ast No observ ation record ed. [email or web address] Not Available 2018 07:57:13 02/26/20 19 MRI, hip, w/o contr ast No observ ation record ed. [email or web address] [facility] Central Scheduling [address] [facility], [place], [address], 02/26/2019 12:27:20 Result Notes None recorded. Procedures Surgical History Date Name Laterality Status Provider Name and Address Organization Details Recorded Time 8 Other completed Donovan Leoncio [facility] 02/03/2019 09:26:33 5 Orthopaedic Surgery completed Donovan Arielledaily [facility] 02/03/2019 09:26:05 Imaging Results None recorded. Procedure Notes None recorded. Medical Equipment None Reported. Allergies No known drug allergies Medications Name Sig Start Date Stop Date Status Note LastModified by Organization Details LastModified Time vitamin c 500mg tablets g/s TK 1 T PO BID 02/03 completed Not Available Not Available Not Available Levoxyl 88 mcg tablet TK 1 T PO QAM ON EMPTY STOMACH active Not Available Not Available No t Available ibuprofen 800 mg tablet active Not Available Not Available Not Available levothyroxin e 75 mcg tablet 02/03 completed Not Available Not Available Not Available ferrous sulfate 325 mg (65 mg iron) tablet TK 1 T PO BID 02/03 completed Not Available Not Available Not Available ergocalcifer ol (vitamin D2) 1,250 mcg (50,000 unit) capsule 02/03 completed Not Available Not Available Not Available celecoxib 100 mg capsule active Not Available Not Available Not Available duloxetine 60 mg capsule,rudi yed release 02/03 completed Not Available Not Available Not Available cholecalcife rol (vitamin D3) 1,250 mcg (50,000 unit) capsule TK 2 CS PO ONCE A WEEK 02/03 completed Not Available Not Available Not Available Clenpiq 10 mg-3.5 gram-12 gram/160 mL oral solution 02/03 completed Not Available Not Available Not Available Vitals Date Recorded Body height Body mass index (BMI) Body weight Provider Name and Address Organization Details Last Updated DateTime 02/03/2019 162.56 cm 30.9 kg/m2 52636.63 g Radhanaman Leoncio [facility] 02/03/2019 09:23:49 Date Recorded Body height Body mass index (BMI) Body weight Provider Name and Address Organization Details Last Updated DateTime 03/31/2019 162.56 cm 30.9 kg/m2 38507.63 g Rylee Pepperlroy [facility] [place] 03/31/2019 07:56:31 Social History Question Answer Notes LastModified by [facility] Details LastModified Time Tobacco Smoking Status Never Smoker Donovan Fang mahad [facility] [place] 02/03/2019 09:24:29 Auto Related Injury? No Information not available 02/03/2019 Have You Had Cortisone? Yes Left Hip Information not available 02/03/2019 What Was The Date Of Your Most Recent Tobacco Screening? 03/31/2019 Information not available 06/19/2019 What Types Of Sporting Activities Do You Participate In? Threadmill Walking, Stretches Information not available 02/03/2019 Work Related Injury? No Information not available 02/03/2019 Sex: Unknown Functional Status Question Answer Note LastModified by [facility] Details LastModified Time What is your level of alcohol consumption? 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 Occasional Information not available 02/03/2019 Mental Status None recorded. Family History Relationship Description Onset Age of this Age Resolved Age Notes LastModified by Organization Details LastModified Time Father Family history of blood coagulation disorder [email or web address] Not available 2018 09:39:29 Father Family history of stroke [email or web address] Not available 2018 09:39:37 Medical History Condition Response Blood Clots / Phlebitis N Heart Problems N HIV or AIDS N Depression or Anxiety Y High Blood Pressure N Irregular Heartbeat N MRSA N Emphysema / Chronic Bronchitis N Any Other Significant Medical Issues Y Reaction to General/Local Anesthesia N Weight Gain / Loss Y Hepatitis / Jaundice N Kidney / Bladder Infections N Diabetes N Bleeding Disorder N Hearing Loss N Angina, Heart Failure or Attack N Night Sweats N Seizures / Epilepsy N Osteoarthritis / Rheumatoid arthritis / Other Y Cancer N Stroke N Chemical Dependency / Alcoholism N Ulcer / Stomach Bleeding / Indigestion N Visual Loss or Glaucoma N Psoriasis / Skin Rash N Thyroid Disorder Y Heart Disease N Asthma / Shortness of Breath / Sleep Bundle Helper ea (please specify) N Pulmonary Embolism N Gynecological HistoryNo gynecological history recorded. Obstetrics History GPAL:G 0 P 0 0 0 0 Past Encounters Encounter ID Performer Location Encounter Start Date Encounter Closed Date Diagnosis/Indication Diagnosis SNOMED-CT Code Diagnosis ICD10 Code Diagnosis Note [id number] DIEGO RUIZ MD [facility] Office [address] [place] [phone] 02/03/2019 09:20:23 02/03/2019 10:54:28 Complete tear, hip ligament 598841131 S73.192D [id number] DIEGO RUIZ MD [facility] Office [address] [place] [phone] 1 03/31/2019 07:42:32 03/31/2019 08:29:41 Osteoarthritis of hip 300272128 M16.12 Health Concerns Section Related Observation LastModified by Organization Detai ls LastModified Time None Recorded Concern Status LastModified by Organization Details LastModified Time None Recorded Advance Directives Directive None Recorded Payers Insurance Date Sequence Insurance Name Policy Number Policy Mcclain Covered Member ID Mcclain Member ID Guarantor Name 04/08/2019 1 [facility], 1928–1983 [id number] Tiffanie Lorenzana [id number] Tiffanie Lorenzana Notes Date Note Type Note Provider Name and Address Organization Details Recorded Time 9 text/html CHIEF COMPLAINT: Left hip pain. 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 She is status post left hip arthroscopy with femoroplasty by Dr. Cota at [facility] in April 2015. Apparently no labral repair or capsular closure was performed at the time. No mention of possible dysplastic morphology. She denies a history of instability. She reports persistent pain since the surgery. She last saw him at the three month follow up after the surgery. She did not have any postoperative injections. She denies any significant lower back pain. Her contralateral hip is starting to bother her as well but this seems to be largely a compensation problem per her report. She brought along some preoperative imaging but no MRI. She has postoperative images obtained three years ago. She denies any fevers or chills. DIEGO RUIZ MD [address] [place] [address], [phone], [facility] 02/06/2019 08:45:55 9 text/html CHIEF COMPLAINT: Left hip pain. HISTORY: Tiffanie returns today for follow up regarding her left hip. She was seen by Dr. Mcdonough in the interim and also had an MRI. She had an intraarticular injection which gave her some minor temporary relief. Possible viscosupplementation has been discussed as well as follow up. She complains of persistent pain even at rest. She has worsening pain at times with deep stabbing symptoms with sitting and with getting up from a seated position. She was noted to have some degenerative changes and some heterotopic ossification as well. Osteophyte along the head neck junction. DIEGO RUIZ MD [address] [place] [address], [phone], [facility] 04/03/2019 12:37:05 OBGyn Episode No OBEpisode recorded.
[2025-05-01 16:46] LABS: MANUAL DIFF FLAG NO
[2025-05-01 17:10] LABS: Basophils Percent Auto 0.7 % (0-2); Eosinophils Absolute Auto 0.1 X10*3/uL (0.0-0.4); Eosinophils Percent Auto 2.3 % (0-4); Hematocrit 34.5 % (37.0-47.0); Hemoglobin 12.1 g/dl (12.0-16.0); Imm Gran Abs Auto 0.01 X10*3/uL (0.00-0.03); Imm Gran Pct Auto 0.2 % (0.0-0.4); Lymphocytes Absolute Auto 1.7 X10*3/uL (1.2-4.9); Lymphocytes Percent Auto 26.9 % (20-40); Mean Corpuscular HGB Conc 35.1 g/dl (31.0-35.0); Mean Corpuscular Hemoglobin 29.5 pg (27.0-33.0); Mean Corpuscular Volume 84.1 fL (80.0-98.0); Mean Platelet Volume 10.3 fL (9.4-12.3); Monocytes Absolute Auto 0.4 X10*3/uL (0.1-1.2); Monocytes Percent Auto 6.7 % (2-11); Neutrophils Absolute Auto 3.9 x10*3/uL (2.0-8.3); Neutrophils Percent Auto 63.2 % (45-73); Platelet Count 286 X10*3/uL (160-400); Red Cell Distribution Width 14.7 % (11.0-16.0); White Blood Count 6.1 X10*3/uL (4.8-10.8)
[2025-05-04 20:33] LABS: Immunoglobulin A 153 mg/dL (47-310)
[2025-05-08 11:38] LABS: Transglutaminase IgA <1.0 U/mL
== END 2025-05-01 16:31 | disposition home or self-care (01) ==
LOC: HO.LAB 16:30
PROVIDERS: PCP Internal Medicine; Visit Provider Internal Medicine
DX: D50.9 Iron deficiency anemia, unspecified (principal)
CPT/HCPCS: 36415; 82784; 85025; 86364

== ENCOUNTER 2025-05-14 15:23 | Outpatient (REF) | payer OTHER, SELFPAY ==
--- NOTE | ~2025-05-14 | US_ITS ---
EXAMINATION: US THYROID CLINICAL INFORMATION: Hypothyroidism. COMPARISON: 09/03/2017. TECHNIQUE: Linear transducer grayscale and color Doppler examination with attention to the region of the thyroid. FINDINGS: SIZE: Measurements of the thyroid lobes and nodules are given in sagittal, anteroposterior and transverse dimensions respectively. Right Thyroid Lobe: 4.8 x 1.7 x 1.7 cm, volume 7.2 mL. (Previously 6.7 mL). Parenchyma: The gland echotexture is heterogeneous. Thyroid vascularity is increased. Left Thyroid Lobe: 4.7 x 1.4 x 1.8 cm, volume 6.0 mL. (Previously 9.3 mL) Parenchyma: The gland echotexture is heterogeneous. Thyroid vascularity is increased. Isthmus: 0.4 cm in maximum AP dimension. Estimated total number of nodules greater than or equal to 1 cm: 0. Lock Installer nodules are described as follows: 1. Location: Right mid pole. Size: 0.6 x 0.4 x 0.4 cm, volume 0.05 mL. Nodule characteristics: Composition: Solid (2). Echogenicity: Hyperechoic (1). Shape: Not taller than wide (0). Margins: Smooth (0). Echogenic Foci: None (0). ACR TI-RADS total points: 3 ACR TI-RADS category: 3 NODES: No lymphadenopathy is seen in the tissue surrounding the thyroid gland. Inferior to the left thyroid lobe, there is an oval hypoechoic nodule measuring 0.5 x 0.4 x 0.6 cm. This could be a small lymph node or possibly a parathyroid adenoma. US/US thyroid IMPRESSION: 1. Heterogeneous and hypervascular thyroid gland consistent with thyroiditis. 2. There is a 0.6 cm TR category 3 nodule in the right mid pole. No follow-up suggested. 3. Inferior to left thyroid lobe, there is an oval hypoechoic nodule measuring 5 x 4 x 6 mm. This could be a small lymph node or possibly a parathyroid adenoma. ACR TI-RADS RECOMMENDATION REFERENCE: Ultrasound-guided fine-needle aspiration, followup ultrasound, no further follow up. * TR1 (0 point) and TR2 (2 points): No FNA or follow up. * TR3 (3 points): FNA if more than or equal to 2.5 cm in maximum dimension, followup ultrasound in 1, 3 and 5 years if 1.5 to 2.4 cm in maximum dimension. * TR4 (4-6 points): FNA if more than or equal to 1.5 cm in maximum dimension, followup ultrasound in 1, 2, 3 and 5 years if 1 to 1.4 cm in maximum dimension. * TR5 (more than or equal to 7 points): FNA if more than or equal to 1 cm in maximum dimension, followup ultrasound every year for 5 years if 0.5 to 0.9 cm in maximum dimension. * TR3, TR4 or TR5 nodules that are below the size threshold for followup receive no follow up. Electronically signed by: Otto Ha MD 05/14/2025 04:07 PM EDT
--- OUTSIDE RECORDS SUMMARY | 2025-05-14 16:37 | XMS_ITS | Clinical Summary ---
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 12/02/2022 Active estradioL (ESTRACE) 0.01 % (0.1 mg/gram) vaginal cream Apply 1/2g with finger nightly for 2 weeks, then Sunday, Sunday, Sunday. 12/22/2022 Active tiZANidine (ZANAFLEX) 2 mg tablet TAKE 1 TABLET BY MOUTH EVERY 8 HOURS NEEDED FOR MUSCLE SPASMS 01/25/2022 Active meloxicam (MOBIC) 15 mg tablet Take 15 mg by mouth daily. Active cyclobenzaprine (FLEXERIL) 5 mg tablet Take 5 mg by mouth 3 times daily as needed. Active levothyroxine (SYNTHROID, LEVOTHROID) 88 mcg tablet Take 88 mcg by mouth daily. Active ferrous sulfate 325 mg (65 mg elemental iron) tablet Take 1 tablet by mouth 2 times daily. Active ascorbic acid (VITAMIN C) 500 mg tablet Take 500 mg by mouth daily. Active cholecalciferol (Dialyvite Vitamin D3 Max) 1,250 mcg (50,000 unit) tablet Take 1 tablet by mouth once a week. Active ibuprofen (ADVIL,MOTRIN) 800 mg tablet Take 800 mg by mouth every 8 hours as needed. Active Active Problems Problem Noted Date Diagnosed Date Abnormal uterine bleeding 03/08/2023 Overview (11/28/2024): Last Assessment & Plan: Again reviewed recommendation for endometrial sampling given history of excessively heavy menses and abnormal brown intermenstrual bleeding/discharge. Discussed recommendation for hysteroscopy/D&C under anesthesia given history of cervical conization and cervical stenosis in the past. Patient expressed understanding and is in agreement to proceed. Declines STI testing today. Discussed recommendation to avoid vaginal estrogen use until endometrial sampling has been completed. Pelvic pain in female 03/08/2023 Overview (11/28/2024): Last Assessment & Plan: Pelvic ultrasound ordered to assess for structural abnormalities or adnexal masses. Excessive bleeding in premenopausal period 09/12 Overview (11/28/2024): Last Assessment & Plan: Patient reports heavy menstrual bleeding and intermenstrual bleeding. Recent GC/CT negative and TSH and pelvic US WNL. Discussed with patient potential causes of abnormal bleeding including infection, trauma, anovulation, polyps, fibroids, hyperplasia, and malignancies. I have low suspicion for endometrial malignancy, however discussed that endometrial biopsy would be reasonable. She may return for EMB. Effusion of left knee joint 09/07/2022 Lumbar spondylosis 04/14/2022 Overview (11/28/2024): Last Assessment & Plan: Patient describes transverse low back pain, radiating to the left >right hip and SI joint. She gets numbness tingling equally in the legs and feet, recently has been getting pain in her heels. She also recently has noticed some swelling at the ankles. She states she is used to living in pain, but had a severe flareup October 2021, was home for 2 weeks. She states at that time she could barely walk. She has history of hip issues, trying PT, care assistant, injections. She had arthroscopic left hip surgery with Dr. Cota a few years ago, then she went to [facility] (Dr. Ruiz) for a second opinion when she had persistent pain. She states Dr. Cota told her she has severe left hip arthritis but is too young for hip replacement. She has been seen in 3 different rheumatology offices, most recently the arthritis center on [facility]. They treated her for osteoarthritis and fibromyalgia. At this time she has no follow-up with them. No recent conservative treatments for her low back pain like PT, acupuncture, does not think she had an injection for SI joint pain, just for her hip. She also has been noticing some neck pain over the last 2 weeks, no radicular arm symptoms. Patient [place] thoracic and lumbar spine [place]20[place] [facility] [place] shows mild multilevel degenerative changes, no significant central or foraminal stenosis at any level, no signal change in the spinal cord in the thoracic spine. I reviewed the MRI images with the patient in detail. We talked about conservative treatment options like aquatic physical therapy, ground physical therapy, acupuncture. She is interested in starting with aquatic physical therapy, I also gave her the name of some acupuncturists, she can call and see if they accept her insurance. I asked her to follow-up with Dr. Ramirez if she is not seeing improvement with these conservative treatment options. All questions answered. She will call with any concerns or questions. Vaginal atrophy 03/15/2022 Overview (11/28/2024): Last Assessment & Plan: Patient symptoms have improved with vaginal estrogen cream. As it has been several weeks since she used the estrogen cream I recommend that she start with nightly use x2 weeks then decrease use to 2-3 times per week when she restarts the medication. I encouraged her to continue use of lubricants with intercourse as needed. 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 New hypopigmented lesion on right labia biopsied today, plan pending bx result. Patient will be informed when result is available. 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 Kawar, HSIL, negative margins Last Assessment & Plan: Healing well from biopsy. Has appointment with Dr. Long scheduled 02/21/22 Acute vaginitis 01/02/2022 Overview (11/28/2024): Last Assessment & Plan: Discussed physiologic vs pathologic vaginal discharge and discussed that discharge she is experiencing may be normal. Wet prep obtained to r/o infection, will treat as indicated. Rx for vaginal estrace cream provided 2/2 atrophic appearance. Encouraged patient to continue to use lubricant during intercourse. Patient to follow-up in 2-3 months Breast tenderness 09/16/2020 Overview (11/28/2024): Last Assessment & Plan: Discussed conservative measures including avoiding caffiene and foods high in fat, as well as wearing a tight fitting, supportive bra. Screening mammogram ordered Dyspareunia in female 09/16/2020 Overview (11/28/2024): Last Assessment & Plan: Recommend trying different positions with intercourse. If pain worsens patient to return for further evaluation Vaginal discharge 09/16/2020 Overview (11/28/2024): Last Assessment & Plan: Likely physiologic discharge, discussed with patient. Wet prep done today. Will treat as indicated. Encounters Date Type Department Care Team Description 05/07/2025 2:37 PM EDT - 05/07/2025 11:59 PM EDT Hospital Encounter Radiology Department - [address] [phone] Axillary lymphadenopathy Discharge Disposition: Home or Self Care 04/28/2025 3:00 PM EDT Office Visit Obstetrics and Gynecology - [address] [phone] Gabriella Carbajal, PA Encounter for gynecological examination (general) (routine) with abnormal findings (Primary Dx); Encounter for breast cancer screening using non-mammogram modality; Cervical cancer screening; Axillary lymphadenopathy from Last 3 Months Immunizations Name Administration Dates Next Due Hepatitis A-Hepatitis B Adul t (Twinrix) 18yo and older 01/11/2016 Influenza trivalent, with pr eservative (Fluzone; Afluria) 6mo and older 09/04/2019,08/26/2018,09/03/2017 Tdap Tetanus diptheria acell ular pertussis (Boostrix; Adacel) 7yo and older 01/12/2017 Surgical History Surgery Date Site/Laterality Comments SECTION PROCEDURE: [facility] DELIVERY ONLY OTHER SURGICAL HISTORY 2014 Left PROCEDURE: ARTHROSCOPY PROCEDURE NEC; COMMENT: arthroscopic surgery left hip, Dr. Cota TONSILLECTOMY ADENOIDECTOMY, BILATERAL MYRINGOTOMY AND TUBES 1989 PROCEDURE: [facility] TONSILLECTOMY & ADENOIDECTOMY <AGE 12; COMMENT: [facility] OTHER SURGICAL HISTORY 2007 PROCEDURE: [facility] LIG/TRNSXJ FLP TUBE ABDL/VAG APPR UNI/BI; COMMENT: [facility] WISDOM TOOTH EXTRACTION PROCEDURE: HISTORICAL WISDOM TEETH EXTRACTION OTHER SURGICAL HISTORY 06/15/2010 PROCEDURE: HYSTEROSCOPY, SURGICAL/SAMPLING; COMMENT: D&C Hysteroscopy OTHER SURGICAL HISTORY PROCEDURE: [facility] COLPOSCOPY CERVIX VAG ELTRD CONIZATION CERVIX HIP ARTHROPLASTY 02/02/2023 PROCEDURE: HISTORICAL HIP REPLACEMENT; COMMENT: Left total hip replacement Medical History Medical History Date Comments Anxiety state DX:Anxiety state Generalized osteoarthrosis, unspecified site DX:Generalized osteoarthrosi s, unspecified site Venereal disease 1997 DX:Venereal dis ease; COMMENT: + chlamydia ASCUS with positive high ris k HPV cervical 05/23/2006 DX:ASCUS with positive high risk HPV cervical Severe dysplasia of cervix (JUAN III) 02/09/2006 DX:Severe dysplasia of cervix (JUAN III) History of colposcopy 03/07/2006 DX:History of colposcopy; COMMENT: chronic cervicitis with squamous metaplasia History of cone biopsy of cervix 05/02/2006 DX:History of cone biopsy of cervix Hemorrhagic cyst of left ovary 03/23/2010 D X:Hemorrhagic cyst of left ovary; COMMENT: 4.3 X 4cm hemorrhagic left ovrian cyst Cervical stenosis (uterine cervix) 06/15/2010 DX:Cervical stenosis (uterine cervix) Dysfunctional uterine bleeding 06/15/2010 D X:Dysfunctional uterine bleeding Fibromyalgia 08/13/2014 DX:Fibromyalgia Hypothyroid 08/13/2014 DX:Hypothyroid Adan's disease 2017 DX:Adan 's disease Polycystic ovarian syndrome DX:P olycystic ovarian syndrome Carpal tunnel syndrome DX:Carpal tunnel syndrome Family History Medical History Relation Name Comments COPD Father Diabetes Father Hypertension Father Stroke Father Arthritis Mother COPD Mother Depression Mother Hypertension Mother Other: sarcoma Mother soft tissue s arcoma Arthritis Sister Breast cancer Neg Hx Colon cancer Neg Hx Prostate cancer Neg Hx Relation Name Status Comments Father Mother Sister Social History Tobacco Use Types Packs/Day Years Used Date Smoking Tobacco: Never Smokeless Tobacco: Never Tobacco Cessation:Counseling Given: Not Answered Alcohol Use Standard Drinks/Week Comments Yes 0 (1 standard drink = 0.6 oz pur e alcohol) Housing Instability Answer Date Recorde d Are you worried that in the next 2 months you may not have stable housing? No 04/08/2025 Food Access & Nutrition Answer Date Rec orded Do you have access to a vari ety of food including fruits and vegetables? Yes 04/08/2025 Access to Healthcare Answer Date Record ed Within the last 3 months, ho w many times did you visit the emergency department for your medical care? 0 04/08/2025 Health Literacy Answer Date Recorded How often do you need to hav e someone help you when you read instructions, pamphlets, or other written material from your doctor or pharmacy? Never 04/08/2025 Caregiver: How often do you need to have someone help you when you read instructions, pamphlets, or other written material from your doctor or pharmacy? Not on file 04/08/2025 Financial Risk Answer Date Recorded How hard is it for you to pa y for the very basics like food, housing, medical care, and air conditioning / heating? Not very hard 04/08/2025 Transportation Answer Date Recorded Has the lack of transportati on kept you from meetings, work, or from getting things needed for daily living? No Has the lack of transportati on kept you from medical appointments or from getting medications? No 04/08/2025 Social Isolation Answer Date Recorded How often do you feel lonely or isolated from those around you? Sometimes 04/08/2025 Food Risk Answer Date Recorded Within the past 12 months we worried whether our food would run out before we got money to buy more. Never true 04/08/2025 Within the past 12 months th e food we bought just didn't last and we didn't have money to get more. Never true 04/08/2025 Dependent Care Answer Date Recorded Do you need help finding or paying for care for your loved ones. For example, children's ministries director or elderly care for an older adult? No 04/08/2025 Education Answer Date Recorded Do you think completing more education or training, like finishing a GED, going to college, or learning a trade, would be helpful for you? N/A 04/08/2025 Employment and Income Answer Date Recor ded During the last four weeks, have you been actively looking for work? No 04/08/2025 Living Situation Answer Date Recorded What is your living situation? 0 04/08/2025 Comments No Sex and Gender Information Value Date Recorded Sex Assigned at Not on file Legal Sex Female 12:59 AM EST Gender Identity Not on file Sexual Orientation Not on file Obstetrics History Para Term AB IAB SAB Ectopic Multiple Livin g Live Births 2 2 2 2 2 Date Outcome GA Total Labor Labor/2nd/3rd Weight Sex Type Anes PTL Noreen A1 A5 Name Clin 003 Term 37w 0d 3118 g (110 oz) M CS-Un spec Epidur al N Livin g Complications:Umbilical cord around neck with cord compression Delivery Location:[place] 005 Term 37w 0d 3175 g (112 oz) M CS-Un spec Epidur al N Livin g Complications:None Delivery Location:[place] Last Filed Vital Signs Vital Sign Reading Time Taken Comments Blood Pressure 115/78 09/03/2023 3:14 PM EDT Pulse 82 09/03/2023 3:14 PM EDT Temperature - - Respiratory Rate - - Oxygen Saturation - - Inhaled Oxygen Concentration - - Weight 84.4 kg (186 lb) 09/03/2023 3:14 PM EDT Height 162.6 cm (5' 4 ) 09/03/2023 3:14 PM EDT Body Mass Index 31.93 09/03/2023 3:14 PM EDT Plan of Treatment Health Maintenance Due Date Last Done Comments Breast Cancer Screening 1980 Hepatitis B Vaccines (2 of 3 - Hep B Twinrix 3-dose series) 02/08/2016 01/11/2016 COVID-19 Vaccine ( season) 2024 03/19/2021, 02/19/2021 Social Influencers of Health Screening 04/08/2026 04/08/2025 Depression Screening 04/21/2026 04/21/2025 DTaP,Tdap,and Td Vaccines (2 - Td or Tdap) 01/12/2027 01/12/2017 Cervical Cancer Screening: HPV 04/28/2030 04/28/2025, 09/16/2020 Hepatitis A Vaccines Aged Out 01/11/2016 No long er eligible based on patient's age to complete this topic HIV Screening Completed 04/26/2017 Hepatitis C Screening Completed 04/26/2017 Influenza Vaccine Completed 10/16/2024, , 10/10/2021, Additional history exists HIB Vaccines Aged Out No longer eligi ble based on patient's age to complete this topic HPV Vaccines Aged Out No longer eligi ble based on patient's age to complete this topic IPV Vaccines Aged Out No longer eligi ble based on patient's age to complete this topic MMR Vaccines Aged Out No longer eligi ble based on patient's age to complete this topic Meningococcal ACWY Vaccine Aged Out N o longer eligible based on patient's age to complete this topic Meningococcal B Vaccine Aged Out No l onger eligible based on patient's age to complete this topic Pneumococcal Vaccine: Pediatrics (0 to 5 Years) and At-Risk Patients (6 to 64 Years) Aged Out No longer eligible based on patient's age to complete this topic RSV Immunization Patients Under 20 months Aged Out No longer eligible based on patient's age to complete this topic Varicella Vaccines Aged Out No longer eligible based on patient's age to complete this topic Procedures Procedure Name Priority Date/Time Associated Diagnosis Comments US AXILLA (BREAST) LIMITED RIGHT Routine 05/07/2025 2:47 PM EDT Axillary lymphadenopathy PAP SMEAR Routine 04/28/2025 3:39 PM EDT Cervical cancer screening HPV WITH REFLEX GENOTYPE Routine 04/28/2025 3:39 PM EDT Cervical cancer screening HEPATITIS C SCREENING Routine 04/26/2017 HIV SCREENING Routine 04/26/2017 from Last 3 Months or Most Recently Relevant to Health Maintenance Results * US Axilla (Breast) Limited Right (05/07/2025 2:47 PM EDT) Anatomical Region Laterality Modality Breast Right Ultrasound 05/12/2025 7:44 AM EDT Impressions 05/12/2025 7:47 AM EDT Benign ultrasound findings. BI-RADS CATEGORY: 1 - NEGATIVE RECOMMENDATION: Return to annual mammography. -------- FINAL REPORT -------- Dictated By: Haydee Fatima Dictated Date: 05/12/2025 07:44 ET Assigned Physician: Haydee Fatima Reviewed and Electronically Signed By: Haydee Fatima Signed Date: 05/12/2025 07:47 ET Workstation ID: [id number] Transcribed By: Self Edit Transcribed Date: 05/12/2025 07:44 ET Narrative 05/12/2025 7:47 AM EDT ULTRASOUND RIGHT AXILLA CLINICAL: 44 years old, Female, enlarged right axillary lymph node. COMPARISON: Mammogram 12/04/2024 TECHNIQUE: Ultrasound evaluation of the palpable area indicated by the patient in the right axilla was performed. FINDINGS: There is no evidence of morphologically suspicious mass. No lymphadenopathy. No axillary abnormality is visualized. Procedure Note Haydee Fatima MD - 05/12/2025 ULTRASOUND RIGHT AXILLA CLINICAL: 44 years old, Female, enlarged right axillary lymph node. COMPARISON: Mammogram 12/04/2024 TECHNIQUE: Ultrasound evaluation of the palpable area indicated by thepatient in the right axilla was performed. FINDINGS: There is no evidence of morphologically suspicious mass. Nolymphadenopathy. No axillary abnormality is visualized. IMPRESSION: Benign ultrasound findings. BI-RADS CATEGORY: 1 - NEGATIVE RECOMMENDATION: Return to annual mammography. -------- FINAL REPORT -------- Dictated By: Haydee Fatima Dictated Date: 05/12/2025 07:44 ET Assigned Physician: Haydee Fatima Reviewed and Electronically Signed By: Haydee Fatima Signed Date: 05/12/2025 07:47 ET Workstation ID: [id number] Transcribed By: Self Edit Transcribed Date: 05/12/2025 07:44 ET us Gabriella [facility] IMG US PROCEDURES Final Resu lt * HPV with reflex genotype (04/28/2025 3:39 PM EDT) HPV Negative Negative LAB MICROBIOLOGY METHOD 04/30/2025 2:07 PM EDT [facility] Brushing/Spatula Cervix uteri structure / Unknown 04/28/2025 3:39 PM EDT 04/30/2025 7:57 AM EDT us Gabriella RUIZ LAB MOLECULAR DIAGNOSTICS OR DERABLES Final Result [facility] [address] [place] [address], * Pap smear (04/28/2025 3:39 PM EDT) Interpretation Negative for intraepithelial lesion or malignancy 05/06/2025 10:25 AM EDT [facility] General Categorization Negative 05/06/2025 10:25 AM EDT [facility] LMP 04/01/2025 05/06/2025 10:25 AM EDT [facility] Specimen Adequacy Satisfactory for evaluation, endocervical/robb sformation zone component absent 05/06/2025 10:25 AM EDT [facility] Pap Methodology Liquid Based [facility] Dis[facility] The Pap test is a screening test which carries an inherent false negative rate. These test results should be correlated with the patient's clinical findings and history. This Pap test was processed using an automated screening system. Technical cytopathology services provided by [facility], at [address] [place] [id number] (CLIA # [id number]/Mika Concepcion MD, Health Program Manager.) 05/06/2025 10:25 AM EDT [facility] Console Pap Interpretation Reported 05/06/2025 10:25 AM EDT [facility] Brushing/Spatula Cervix uteri structure / Unknown 04/28/2025 3:39 PM EDT 04/28/2025 3:39 PM EDT [facility] LAB CYTOLOGY ORDERABLES [place] l Result [facility] [address] [place] [address], * HIV Screening (04/26/2017) HIV Screening abstracted Historical Provider HEALTH MAINTENANCE Final Result * Hepatitis C Screening (04/26/2017) Hepatitis C Screening abstracted Historical Provider HEALTH MAINTENANCE Final Result from Last 3 Months or Most Recently Relevant to Health Maintenance Insurance [facility] Advance Directives Documents on File Type Date Recorded 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
== END 2025-05-14 15:24 | disposition home or self-care (01) ==
LOC: HO.HMGCX 15:23
PROVIDERS: PCP Internal Medicine; Visit Provider Internal Medicine
DX: E06.3 Autoimmune thyroiditis (principal); E03.8 Other specified hypothyroidism
CPT/HCPCS: 76536

== ENCOUNTER → 2025-05-14 15:25 | Outpatient (BNV) | payer OTHER, SELFPAY | PROVIDERS: PCP Internal Medicine; Visit Provider Radiology Diagnostic Radiology | DX: E04.2 Nontoxic multinodular goiter (principal) | CPT/HCPCS: 76536 ==

== ENCOUNTER 2025-05-25 14:59 | Outpatient (AMB) | payer OTHER, SELFPAY ==
[2025-05-25 15:00] VITALS: BP 125/70; PULSE 89; TEMP 36.9; O2SAT 98; BMI 31.9
--- NOTE | 2025-05-25 15:00 | MHC.OFFVIS ---
Vital Signs 05/25/25 15:00 Height 5 ft 4 in Weight 186 lb 1.122 oz BMI 31.9 BP 125/70 Blood Pressure Location Rt brachial Position Sitting Pulse 89 Pulse Source Pulse Oximeter Temp 98.5 F Temp Source Temporal Artery Scan Pulse Oximetry (%) 98 Oxygen Delivery Method Room Air Intake Visit Reasons: Unspecified lump in the right breast Intake Note: Pt presents to the office today for an unspecified lump in the right breast. c/o: tenderness Allergies No Known Allergies (No Known Allergies*) Allergy (Verified 05/25/25 15:06) Medication List - Last Reconciled 05/26/25 by Gerry Walters MD ascorbic acid (vitamin C) 500 mg PO .QD 30 days cane As directed cholecalciferol (vitamin D3) 50 mcg PO DAILY 30 days duloxetine (Cymbalta) 20 mg PO BID Levoxyl (levothyroxine) 88 mcg PO DAILY 90 days NS lidocaine 5% (Lidoderm) 1 patch topical DAILY HPI Comments Details: 44-year-old female patient presenting with complaints of a right breast lump with the associated pain which he 1st noticed in September 2024 after her pointed it out. She reports the lump is located to the outside of the breast between the armpit in the upper portion of the breast. The lump was confirmed by her primary care doctor in a mammogram and ultrasound was subsequently performed. Mammogram and ultrasound performed on 12/04/[address] [facility] revealed no mammographic or sonographic abnormality to account for the patient's right breast palpable lumps (BI-RADS 2). A repeat ultrasound performed on 05/25/2025 also revealed no evidence of morphologically suspicious mass, no lymphadenopathy, no axillary abnormality was visualized (BI-RADS 1). She continues to feel a lumpiness in the right breast at the same location. She denies a family history of breast cancer. Her mother recently passed from a leiomyosarcoma in her father from lung cancer. [facility] Medical History Anemia Obesity (BMI 30-39.9) Fibromyalgia Vitamin D deficiency Hypothyroidism Surgical History History of biopsy S/P LEEP (loop electrosurgical excision procedure) Hx of wisdom tooth extraction History of esophagogastroduodenoscopy (EGD) Hx of tonsillectomy Hx of tubal ligation Family History Father Cerebrovascular accident (CVA) Diabetes mellitus Depression Mental health disorder Lung cancer Mother Hypothyroidism Osteoporosis Fibromyalgia Hyperlipidemia Hypertension Depression Mental health disorder Sarcoma Maternal Aunt Thyroid cancer Maternal Uncle Liver cancer Social History Household Members: Spouse and Children Housing: House Are you a primary lawn care worker to a significant other at home: No Do you presently have visiting nurse or other home services: No Alcohol intake: current Alcohol intake frequency: a few times a week Alcohol type: wine Comment: 2 days weekend 3 glasses Patient Tobacco Use Status: Former Tobacco user Tobacco use type: Cigarette Years Smoked: 1999 quit e-Cigarette/Vaping Use: Never Used Second Hand Smoke Exposure: No service: No Current occupational status: employed Cognitive needs: No Hearing needs: No Vision needs: No Review of Systems Const All systems reviewed & are unremarkable except as noted in HPI and below Physical Exam Vital Signs: Last Vital Signs Temp 98.5 F 05/25/25 15:00 Pulse 89 05/25/25 15:00 BP 125/70 05/25/25 15:00 Pulse Ox 98 05/25/25 15:00 Oxygen Delivery Method Room Air 05/25/25 15:00 BMI result Body Mass Index 31.9 Const General: cooperative and no acute distress Nutritional Appearance: well nourished Orientation/consciousness: patient oriented x3 Limitations: no limitations HEENT Head: Yes normocephalic and Yes atraumatic Ears: hearing grossly normal bilaterally Chest Other: Bilateral extremely dense breasts by examination with diffuse fibrocystic areas especially as noted below. Left breast: No skin change, no nipple retraction, no nipple discharge, no palpable mass, no enlarged lymph nodes. Right breast: No skin change, no nipple retraction, no nipple discharge, no palpable mass, no enlarged lymph nodes Chest/axillae images:  1. Area of thickening without a discrete mass, tender to palpation 2. Area of thickening without discrete mass, mainly fibrocystic, mildly tender to palpation Resp Effort & Inspection: normal respiratory effort, no audible wheezes, no cough and no respiratory distress Cardio Jugular venous distension: no JVD GI Inspection: Yes normal to inspection Skin Other: Warm, dry, no rash Neuro General: patient oriented x3 Extrem General: Yes no clubbing, cyanosis or edema Assessment & Plan Assessment & Plan (1) Breast mass, right: Code(s): N63.10 - Unspecified lump in the right breast, unspecified quadrant Category: Medical Qualifiers: Breast mass location: upper outer quadrant Qualified Code(s): N63.11 - Unspecified lump in the right breast, upper outer quadrant (2) Dense breast tissue on mammogram: Code(s): R92.30 - Dense breasts, unspecified Category: Medical Qualifiers: Mammographic dense breast tissue type: heterogeneous Laterality: bilateral Qualified Code(s): R92.333 - Mammographic heterogeneous density, bilateral breasts Plan 44-year-old female patient presenting with an area of thickening in the right breast at the upper outer quadrant since September 2024. On examination the patient has extremely dense breasts making examination difficult. Especially thickened areas include the upper outer quadrant of both breasts. Mammogram and ultrasound however revealed no suspicious changes in his area. I recommended further evaluation of this bilateral area of thickening with breast MRI she expressed understanding and agrees with the plan. I will call her to inform her of the results of the MRI once available. Orders: Orders MR breast BI wo/w con 05/25/25 N63.10 - Unspecified lump in the right breast, unspecified quadrant, R92.30 - Dense breasts, unspecified Coding Level of Care Code New Pt Level 4 (71034) Diagnoses Mass of upper outer quadrant of right breast N63.11 Breast mass location: upper outer quadrant Heterogeneously dense tissue of both breasts on mammography R92.333 Mammographic dense breast tissue type: heterogeneous Laterality: bilateral
--- OUTSIDE RECORDS SUMMARY | 2025-05-25 15:25 | XMS_ITS | Data Portability ---
Author Organization ID - [facility], [facility] - INPATIENT Address [address] [place] [address] Care Team Providers Care Warehouse Hand Name Role Phone PAULO SNOW Primary Care Provider [phone] Assessment Encounter Date Assessment Date Assessment LastModified [...] see one of my colleagues at the [facility] performing hip replacement for a discussion of [...] hip, w/o contrast - APPROVED - AUTH #[id number] GOOD FROM 02/06/19 - 05/07/19. YOON RHODES PLEASE CALL TO PT TO SCHEDULE APPT Dx: s/p left hip arthrscopy Px: left hip MRI, assess for loose bodies, AVN, and labral pathology 2018 019 [facility] Central Scheduling, [address], [place], [address], 9 08:58:44 Medication Orders None recorded. Patient [...] teral No observ ation record ed. [email or web address] [facility] [address], [place], [address], 02/03/2019 10:09:44 02/04/20 19 08/25/2014 intra -kira cular injec tion (PROC ) No observ ation record ed. [email or web address] Not Available 02/05 10:56:54 02/04/20 19 06/16/2014 XR, hip, bilat eral, 2 view No observ ation record ed. [email or web address] Not Available 2018 07:56:14 02/04/20 19 09/10/2014 MRI, hip, w/o contr ast No observ ation record ed. [email or web address] Not Available 2018 07:57:13 02/26/20 19 MRI, hip, w/o contr ast No observ ation record ed. [email or web address] [facility] Central Scheduling [address], [place], [address], 02/26/2019 12:27:20 Result Notes Documentation Provider Name and Address Organization Details Recorded Time Xr, Hip, Unilateral : Maye Nicolegaby tobin [facility] 02/03/2019 10:09:44 Procedures Surgical History Date Name Laterality Status Provider Name and Address Organization Details Recorded Time 8 Other completed Donovan Fang [facility] 02/03/2019 09:26:33 5 Orthopaedic Surgery completed Donovan Fang [facility] 02/03/2019 09:26:05 Imaging Results None recorded. Procedure [...] Updated DateTime 02/03/2019 162.56 cm 30.9 kg/m2 29142.63 g Donovan Fang [facility] 02/03/2019 09:23:49 Date Recorded Body height Body mass index (BMI) Body weight Provider Name and Address Organization Details Last Updated DateTime 03/31/2019 162.56 cm 30.9 kg/m2 16119.63 g Rylee Guthrie [facility] 03/31/2019 07:56:31 Social History Question Answer Notes LastModified by DigePrint Details LastModified Time Tobacco Smoking Status Never Smoker Donovan tobin [facility] 02/03/2019 09:24:29 Auto Related Injury? No Information [...] Functional Status Question Answer Note LastModified by DigePrint Details LastModified Time What is your level [...] Asthma / Shortness of Breath / Sleep Die Baker ea (please specify) N Pulmonary Embolism N Gynecological HistoryNo gynecological history recorded. Obstetrics History GPAL:G 0 P 0 0 0 0 Past Encounters Encounter ID Performer Location Encounter Start Date Encounter Closed Date Diagnosis/Indication Diagnosis SNOMED-CT Code Diagnosis ICD10 Code Diagnosis Note [id number] DIEGO RUIZ MD [facility] Office [address] [place], [place] [address] 02/03/2019 09:20:23 02/03/2019 10:54:28 Complete tear, hip ligament 728022509 S73.192D [id number] DIEGO RIUZ MD [facility] Office [address] [place] [address] 1 03/31/2019 07:42:32 03/31/2019 08:29:41 Osteoarthritis of hip 671723795 M16.12 Health Concerns Section Related Observation LastModified by Organization Detai ls LastModified Time None Recorded Concern Status LastModified by Organization Details LastModified Time None Recorded Advance Directives Directive None Recorded Payers Insurance Date Sequence Insurance Name Policy Number Policy Mcclain Covered Member ID Mcclain Member ID Guarantor Name 04/08/2019 1 [facility] [id number] Tiffanie Lorenzana [id number] Tiffanie Lorenzana Notes Date Note Type Note Provider Name and Address Organization Details Recorded Time 9 text/html CHIEF COMPLAINT: Left hip pain. 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 She is status post left hip arthroscopy with femoroplasty by Dr. Cota at [facility] in April 2015. Apparently no labral [...] any fevers or chills. DIEGO RUIZ MD [address] [place] [address], [phone], [facility] 02/06/2019 08:45:55 9 text/html CHIEF COMPLAINT: Left [...] the head neck junction. DIEGO RUIZ MD [address] [place] [address], [phone], [facility] 04/03/2019 12:37:05 OBGyn Episode No OBEpisode recorded.
--- OUTSIDE RECORDS SUMMARY | 2025-05-25 15:26 | XMS_ITS ---
Author Name [facility] Organization Unknown History of Medication Use Medication Directions Dispensed Refills Start Date End Date Stat pantoprazole 02/01/2023 3 completed pantoprazole 02/01/2023 3 completed aspirin 81 mg tablet 1 mg twice a day by oral route. 01/04/2023 3 active terbinafine HCl 250 mg tablet 3 completed acetaminophen 500 mg tablet TAKE 2 TABLETS BY MOUTH EVERY 8 HOURS 3 completed estradiol 0.01% (0.1 mg/gram) vaginal cream 05/22 3 active ibuprofen 800 mg tablet TAKE 1 TABLET BY MOUTH EVERY 8 HOURS NEEDED FOR PAIN 3 completed ibuprofen 800 mg tablet TAKE 1 TABLET BY MOUTH EVERY 8 HOURS NEEDED FOR PAIN 3 completed metronidazole 0.75 % (37.5 mg/5 gram) vaginal gel INSERT VAGINALLY AT BEDTIME FOR 5 NIGHTS 3 completed ondansetron 8 mg disintegrating tablet DISSOLVE 1 TABLET ON THE TONGUE EVERY 8 HOURS NEEDED FOR NAUSEA OR VOMITING 3 completed Stimulant Laxative Plus 8.6 mg-50 mg tablet TAKE 2 TABLETS BY MOUTH AT BEDTIME. STOP WHEN NARCOTICS ARE STOPPED 3 completed sulfamethoxazole 800 mg-trimethoprim 160 mg tablet TAKE 1 TABLET BY MOUTH TWICE DAILY FOR 7 DAYS 3 completed pantoprazole 40 mg tablet,delayed release TAKE 1 TABLET BY MOUTH DAILY BEFORE A MEAL 3 completed ferrous sulfate 325 mg (65 mg iron) tablet 2 mg every day by oral route. active Levoxyl 88 mcg tablet TAKE 1 TABLET BY MOUTH DAILY active Problems Problem Status Onset Date Problem Type Date of Resoluti on Source Arthritis of right hip active 2023-04-17 ProblemAct [facility] History of total hip arthroplasty active 2023-05-14 ProblemAct [facility] Multiple joint pain active 2023-06-21 ProblemAct [facility] Pain in right hip joint active 2023-03-23 ProblemAct [facility] Encounters Encounter Type Encounter Reason Primary Diagnosis Location Date [facility]ulatory [facility] 03/10/2024 [facility] 03[facility]07/2024 [facility] 03/07/2024 [facility] 11/16/2023 [facility] 11/05/2023 [facility] 10[facility]08/2023 [facility] 10/08/2023 [facility] 09/28/2023 [facility] 08/31/2023 [facility] 08/31/2023 [facility] 08/07/2023 [facility] 07/16/2023 [facility] 07[facility]15/2023 [facility] 07/11/2023 [facility] 07/11/2023 [facility] 07/06/2023 [facility] 07/05/2023 [facility] 06/21/2023 [facility] 06[facility]20/2023 [facility] 06/20/2023 [facility] 06/14/2023 [facility] 06/05/2023 [facility] 06/04/2023 [facility] 05/30/2023 [facility] 05/22/2023 [facility] 05[facility]22/2023 [facility] 05/16/2023 [facility] 05/15/2023 [facility] 05/14/2023 [facility] 05/10/2023 [facility] 05/07/2023 [facility] 04/20/2023 [facility] 04/17/2023 [facility] 04/11/2023 [facility] 03/23/2023 [facility] 03/16/2023 [facility] 02/11/2023 Care Team Organization Name Specialty Phone Email Start Date End Da [facility] PAULO SNOW Primary Care 10/26/2022 024
--- OUTSIDE RECORDS SUMMARY | 2025-05-25 15:26 | XMS_ITS | Patient Health Record ---
Author Organization [facility] Address [address] [place] [address] Care Team Providers Care Grassroots Organizer Name Role Phone Michael Noland Primary Care Provider Jacquie Blakely Unavailable [phone] Allergies No Known Allergies Reason For Referral No Information Medications Medication SIG (Take, Route, Frequency, Duration) Notes Start Date End Date Status Glucosamine Active Levoxyl Active Vitamin D3 Active Vitamin C Active Ferrous Sulfate 325 (65 Fe) MG as directed Orally Active Multivitamin Active Probiotic Active Amitriptyline HCl 25 MG Orally Unknown Levothyroxine Sodium Unknown LamISIL 250 MG 1 tablet Orally Once a day; Duration: 30 days Active Meloxicam 15 MG 1 tablet Orally Once a day; Duration: 30 day(s) Active tiZANidine HCl 2 MG 1 tablet as needed Orally Three times a day Active Social History Tobacco Use: Social History Observation Description Date Details (start date - stop date) Former Smoker NA - NA Tobacco Use/Smoking Question Answer Notes Are you a: former smoker Additional Findings: Tobacco Non-User Current no n-smoker Alcohol Screen Question Answer Notes Did you have a drink contain ing alcohol in the past year? Yes How often did you have a dri nk containing alcohol in the past year? 2 to 3 times a week (3 points) Points 3 Interpretation Positive Tobacco use other than smoking: Question Answer Notes Are you an other tobacco user? No Problems Problem Type SNOMED Code ICD Code Onset Dates Problem Status W/U Status Risk Notes Problem Acquired hallux valgus (42585586) Hallux valgus (acquired), left foot (M20.12) Active confirmed Problem Acquired hallux valgus (45515429) Hallux valgus (acquired), right foot (M20.11) Active confirmed Plan Of Treatment Pending Test Test Name Order Date *Liver Function Test (LFT) 09/19/2022 *Liver Function Test (LFT) 11/28/2022 X ray : Foot, left 3V 09/19/2022 X ray : Foot, right 3V 09/19/2022 Insurance Providers Payer Name Payer Address Payer Phone Subscriber Number Group Number Insured Name Patient Relationship to Insured Coverage Start Date Coverage End Date [facility] [address] [place] [address] [id number] Tiffanie Lorenzana Self - patient is the insured Medical (General) History Medical History History ICD Code Anxiety Arthritis Back,Hip,and Knee pain Fibromyalgia Thyroid disorder Chicken pox Anemia PCOS iron and vitamin D deficiency Surgical History Surgery Date(Month/Year) tonsillectomy 1988 tubal ligation 2007 wisdom teeth extraction 1997 section x2 2003 Left Hip Surgery 2015 cervix surgery
--- OUTSIDE RECORDS SUMMARY | 2025-05-25 15:26 | XMS_ITS | Clinical Summary ---
Author Organization [facility] Address [address] [place] [address] Care Team Providers Care Environmental Management Specialist Name Role Phone Michael Noland MD Primary Care Provider [phone] Allergies No known active allergies Medications Medication Sig Dispensed Refills Start Date End Date Status Cholecalciferol (Dialyvite Vitamin D3 Max) 1.25 MG (66190 UT) TABS Take 1 tablet by mouth once a week. 0 Active ferrous sulfate 325 (65 FE) MG tablet Take 1 tablet by mouth 2 (two) times a day. 0 Active ibuprofen 600 MG tablet Take 600 mg by mouth every 6 (six) hours as needed. for pain 0 08/27/2022 Active Levoxyl 88 MCG tablet Take 88 mcg by mouth daily. 0 08/12/2022 Active terbinafine (LamiSIL) 250 MG tablet 0 10/17/2022 Active Active Problems Problem Noted Date Diagnosed Date Effusion of left knee joint 09/07/2022 Social History Tobacco Use Types Packs/Day Years Used Date Smoking Tobacco: Never Assessed Sex and Gender Information Value Date Recorded Sex Assigned at Not on file Gender Identity Not on file Sexual Orientation Not on file Job Start Date Occupation Industry Not on file Not on file Not on file Plan of Treatment Health Maintenance Due Date Last Done Comments Hepatitis C Screening 1980 COVID-19 Vaccine (#1) 1980 Depression Screening 1992 Preventative Health Evaluation 1998 Cervical Cancer Screening (Pap Smear) 2001 Hepatitis B Vaccines (2 of 3 - Hep B Twinrix 3-dose series) 02/08/2016 01/11/2016 Influenza Vaccine (Season Ended) 2025 09/04/2019, 08/26/2018, 09/03/2017 DTap / Tdap / Td (2 - Td or Tdap) 01/12/2027 01/12/2017 Pneumococcal Vaccine Aged Out No long er eligible based on patient's age to complete this topic RSV Ped < 20 months Aged Out No longe r eligible based on patient's age to complete this topic Care Teams Environmental Management Specialist Relationship Specialty Start Date End Date Michael Noland MD [address] [place] [address] [address] [facility] [place] [address] PCP - General Internal Medicine 09/05/22
--- OUTSIDE RECORDS SUMMARY | 2025-05-25 15:26 | XMS_ITS | Clinical Summary ---
Author Organization [address] Address [address] [place] [address] Phone Care Team Providers Care Material Stress Tester Name Role Phone Michael Noland MD Primary Care Provider [phone] Allergies No known active allergies Medications terbinafine [...] has history of hip issues, trying PT, childcare center director, injections. She had arthroscopic left hip surgery with Dr. Cota a few years ago, then she went to [place] (Dr. Ruiz) for a second opinion when she had persistent pain. She states Dr. Cota told her she has severe left hip arthritis but is too young for hip replacement. She has been seen in 3 different rheumatology offices, most recently the arthritis center on [facility]. They treated her for osteoarthritis and [...] MRI thoracic and lumbar spine 02/07/2022 at [facility] that shows mild multilevel degenerative changes, no [...] PM EDT Hospital Encounter Radiology Department - [address] [phone] Axillary lymphadenopathy Discharge Disposition: Home or Self Care 04/28/2025 3:00 PM EDT Office Visit Obstetrics and Gynecology - [address] [phone] Gabriella Carbajal, PA Encounter for gynecological examination [...] History Surgery Date Site/Laterality Comments SECTION PROCEDURE: [place] DELIVERY ONLY OTHER SURGICAL HISTORY 2014 Left PROCEDURE: ARTHROSCOPY PROCEDURE NEC; COMMENT: arthroscopic surgery left hip, Dr. Cota TONSILLECTOMY ADENOIDECTOMY, BILATERAL MYRINGOTOMY AND TUBES 1989 PROCEDURE: VT TONSILLECTOMY & ADENOIDECTOMY <AGE 12; COMMENT: VT OTHER SURGICAL HISTORY 2007 PROCEDURE: VT LIG/TRNSXJ FLP TUBE ABDL/VAG APPR UNI/BI; COMMENT: [facility] WISDOM TOOTH EXTRACTION PROCEDURE: HISTORICAL WISDOM TEETH EXTRACTION OTHER SURGICAL HISTORY 06/15/2010 PROCEDURE: HYSTEROSCOPY, SURGICAL/SAMPLING; COMMENT: D&C Hysteroscopy OTHER SURGICAL HISTORY PROCEDURE: VT COLPOSCOPY CERVIX VAG ELTRD CONIZATION CERVIX HIP [...] for your loved ones. For example, children's aide or elderly care for an older adult? [...] around neck with cord compression Delivery Location:[facility] [place] 005 Term 37w 0d 3175 g (112 oz) M CS-Un spec Epidur al N Livin g Complications:None Delivery Location:[facility] [place] Last Filed Vital Signs Vital Sign Reading [...] Signed Date: 05/12/2025 07:47 ET Workstation ID: [id number] Transcribed By: Self Edit Transcribed Date: 05/12/2025 [...] Signed Date: 05/12/2025 07:47 ET Workstation ID: [id number] Transcribed By: Self Edit Transcribed Date: 05/12/2025 [...] Final Result [facility] [address] [place] [address], * Pap smear (04/28/2025 3:39 PM EDT) [...] Liquid Based Pap Test [facility] Dis[facility] The Pap test is a screening test which carries an inherent false negative rate. These test results should be correlated with the patient's clinical findings and history. This Pap test was processed using an automated screening system. Technical cytopathology services provided by [facility], at [address] [place] [id number] (CLIA # [id number]/Mika Concepcion MD, [facility] Intern.) 05/06/2025 10:25 AM EDT [facility] Console Pap Interpretation Reported 05/06/2025 10:25 AM EDT [facility] Brushing/Spatula Cervix uteri structure / Unknown 04/28/2025 3:39 PM EDT 04/28/2025 3:39 PM EDT [facility] CYTOLOGY ORDERABLES Linn l Result [facility] [address] [place] [address], * HIV Screening (04/26/2017) HIV Screening abstracted Historical Provider HEALTH MAINTENANCE Final Result * Hepatitis C Screening (04/26/2017) Hepatitis C Screening abstracted Historical Provider HEALTH MAINTENANCE Final Result from Last 3 Months or Most Recently Relevant to Health Maintenance Insurance [facility] Advance Directives Documents on File Type Date Recorded Patient Piping Drafter Expl anation Health Care Decision (hx) 02/02/2023 AD LINDO DIRECTIVE Health Care Decision (hx) 02/02/2023 AD LINDO DIRECTIVE Health Care Decision (hx) 02/02/2023 AD LINDO DIRECTIVE Care Teams Material Stress Tester Relationship Specialty Start Date End Date Michael Noland MD [address] [place] [address] [address] [facility] [place] [address] PCP - General 02/19/08
== END 2025-05-25 15:25 | disposition home or self-care (01) ==
LOC: HO.HGS 14:59
PROVIDERS: PCP Internal Medicine; Visit Provider Surgery
DX: N63.11 Unspecified lump in the right breast, upper outer quadrant (principal); R92.333 Mammographic heterogeneous density, bilateral breasts
CPT/HCPCS: 99204

== ENCOUNTER 2025-06-11 09:52 | Outpatient (AMB) | payer OTHER, SELFPAY ==
[2025-06-11 09:55] VITALS: BP 110/78; PULSE 81; O2SAT 98; BMI 32.1
--- NOTE | 2025-06-11 09:55 | MHC.OFFVIS ---
Vital Signs 06/11/25 09:55 Height 5 ft 4 in Weight 187 lb 2.759 oz BMI 32.1 BP 110/78 Blood Pressure Location Lt brachial Position Sitting Pulse 81 Pulse Source Pulse Oximeter Pulse Oximetry (%) 98 Oxygen Delivery Method Room Air Intake Visit Reasons: Other specified hypothyroidism Intake Note: New patient present today for other specified hypothyroidism. Patient Transition Specialist Required: No Accompanied by: Self / Same As Patient Allergies No Known Allergies (No Known Allergies*) Allergy (Verified 06/11/25 09:59) Medication List - Last Reconciled 06/11/25 by Tania Aranda MD ascorbic acid (vitamin C) 500 mg PO .QD 30 days cane As directed cholecalciferol (vitamin D3) 50 mcg PO DAILY 30 days duloxetine (Cymbalta) 20 mg PO BID Levoxyl (levothyroxine) 88 mcg PO DAILY 90 days NS lidocaine 5% (Lidoderm) 1 patch topical DAILY HPI Comments Details: 44 -year-old female, here today for initial evaluation of hypothyroidism. . 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 She is currently on Levoxyl 88 mcg daily. she was on generic for sometime but per patient it was ineffective for her , with persistent symptoms of tiredness, joint aches. so then she was [facility] better for [facility]. 100% compliance with LT 4, good method of administration. Denies cold intolerance, stable weight, monthly periods, no diarrhea,no constipation,, denies dysphagia, dyspnea, dysphonia, denies tremors, palpitations, reports tiredness, muscle aches. Reports hair loss. Most recent blood work from 04/15/2025: TSH elevated at 5.26, free T4 0.91 Ultrasound thyroid 05/14/2025 shows a heterogenous gland as you would suspect in Adan's thyroiditis, with a right midpole subcentimeter TR 3 nodule that does not need follow up. No personal history of head or neck radiation. 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 US THYROID 05/14/25 CLINICAL INFORMATION: Hypothyroidism. COMPARISON: 09/03/2017. TECHNIQUE: Linear transducer grayscale and color Doppler examination with attention to the region of the thyroid. FINDINGS: SIZE: Measurements of the thyroid lobes and nodules are given in sagittal, anteroposterior and transverse dimensions respectively. Right Thyroid Lobe: 4.8 x 1.7 x 1.7 cm, volume 7.2 mL. (Previously 6.7 mL). Parenchyma: The gland echotexture is heterogeneous. Thyroid vascularity is increased. Left Thyroid Lobe: 4.7 x 1.4 x 1.8 cm, volume 6.0 mL. (Previously 9.3 mL) Parenchyma: The gland echotexture is heterogeneous. Thyroid vascularity is increased. Isthmus: 0.4 cm in maximum AP dimension. Estimated total number of nodules greater than or equal to 1 cm: 0. Alteration Manager nodules are described as follows: 1. Location: Right mid pole. Size: 0.6 x 0.4 x 0.4 cm, volume 0.05 mL. Nodule characteristics: Composition: Solid (2). Echogenicity: Hyperechoic (1). Shape: Not taller than wide (0). Margins: Smooth (0). Echogenic Foci: None (0). ACR TI-RADS total points: 3 ACR TI-RADS category: 3 NODES: No lymphadenopathy is seen in the tissue surrounding the thyroid gland. Inferior to the left thyroid lobe, there is an oval hypoechoic nodule measuring 0.5 x 0.4 x 0.6 cm. This could be a small lymph node or possibly a parathyroid adenoma. US/US thyroid IMPRESSION: 1. Heterogeneous and hypervascular thyroid gland consistent with thyroiditis. 2. There is a 0.6 cm TR category 3 nodule in the right mid pole. No follow-up suggested. 3. Inferior to left thyroid lobe, there is an oval hypoechoic nodule measuring 5 x 4 x 6 mm. This could be a small lymph node or possibly a parathyroid adenoma. US thyroid 09/03/17 Right Thyroid Lobe: 4.7 x 1.6 x 1.7 cm, volume 6.7 ml. Left Thyroid Lobe: 5.3 x 1.6 x 2.1 cm, volume 9.3 ml. Isthmus: 0.4 cm in maximum AP dimension. PARENCHYMA: The gland echo texture is heterogeneous. Thyroid vascularity is increased. RIGHT THYROID LOBE: No nodules. ISTHMUS: No nodules. LEFT THYROID LOBE: No nodules. [facility] Medical History Anemia Obesity (BMI 30-39.9) Fibromyalgia Vitamin D deficiency Hypothyroidism Surgical History History of biopsy S/P LEEP (loop electrosurgical excision procedure) Hx of wisdom tooth extraction History of esophagogastroduodenoscopy (EGD) Hx of tonsillectomy Hx of tubal ligation Family History Father Cerebrovascular accident (CVA) Diabetes mellitus Depression Mental health disorder Lung cancer Mother Hypothyroidism Osteoporosis Fibromyalgia Hyperlipidemia Hypertension Depression Mental health disorder Sarcoma Maternal Aunt Thyroid cancer Maternal Uncle Liver cancer Social History Household Members: Spouse and Children Housing: House Are you a primary chronic care nurse to a significant other at home: No Do you presently have visiting nurse or other home services: No Alcohol intake: current Alcohol intake frequency: a few times a week Alcohol type: wine Comment: 2 days weekend 3 glasses Patient Tobacco Use Status: Former Tobacco user Tobacco use type: Cigarette Years Smoked: 1999 quit e-Cigarette/Vaping Use: Never Used Second Hand Smoke Exposure: No service: No Current occupational status: employed Cognitive needs: No Hearing needs: No Vision needs: No Physical Exam Vital Signs: Last Vital Signs Pulse 81 06/11/25 09:55 BP 110/78 06/11/25 09:55 Pulse Ox 98 06/11/25 09:55 Oxygen Delivery Method Room Air 06/11/25 09:55 BMI result Body Mass Index 32.1 Assessment & Plan Assessment & Plan (1) Hypothyroidism: Code(s): E03.9 - Hypothyroidism, unspecified Category: Medical Qualifiers: Hypothyroidism type: due to Adan's thyroiditis Qualified Code(s): E03.8 - Other specified hypothyroidism; E06.3 - Autoimmune thyroiditis Plan: 44-year-old female coming in today for initial evaluation 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 Diagnosed in 2007. She is currently on Levoxyl 88 mcg daily. She is in the brand-name Levoxyl because generic levothyroxine which she was on for a couple of years was ineffective for her, with persistent symptoms of tiredness, joint aches. Most recent blood work from 04/15/2025: TSH elevated at 5.26, free T4 0.91 Ultrasound thyroid 05/14/2025 shows a heterogenous gland as you would suspect in Adan's thyroiditis, with a right midpole subcentimeter TR 3 nodule that does not need follow up. At this point her TSH is elevated so we will adjust her Levoxyl. She does have symptoms of worsening tiredness, muscle aches that she is very bothered by. Hopefully adjusting her Levoxyl and increasing the dose we will help with some of her symptoms and normalize her TSH level. Plan: -increase Levoxyl to 100 mcg daily. -repeat TSH and free T4 in 6 weeks -follow up in 7 weeks to discuss results Plan I spent 45 minutes in reviewing the record, seeing the patient and documenting in the medical record. Orders: Orders Free T4 (Free Thyroxine) 6 Weeks E03.8 - Other specified hypothyroidism, E06.3 - Autoimmune thyroiditis Thyroid Stimulating Hormone 6 Weeks E03.8 - Other specified hypothyroidism, E06.3 - Autoimmune thyroiditis Medications: New Levoxyl (levothyroxine) RAF 0 Brand name only No substitution allowed 100 mcg PO DAILY 90 tabs 2RF NS Discontinued Levoxyl (levothyroxine) Discontinued Reason: Doctor's Order 88 mcg PO DAILY 90 days 90 tabs 1RF NS E03.9 - Hypothyroidism, unspecified Patient Instructions: Increase levoxyl to 100 mcg daily Do blood work in 6 weeks Follow up in 7 weeks Coding Level of Care Code New Pt Level 4 (57041) Diagnoses 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
--- OUTSIDE RECORDS SUMMARY | 2025-06-11 10:18 | XMS_ITS | Clinical Summary ---
Author Organization [address] Address [address] [place] [phone] Phone Care Team Providers Care Psychiatric Nurse Practitioner Name Role Phone Michael Noland MD Primary Care Provider [phone] Allergies No known active allergies Medications terbinafine [...] has history of hip issues, trying PT, child care development specialist, injections. She had arthroscopic left hip surgery with Dr. Cota a few years ago, then she went to [facility] (Dr. Ruiz) for a second opinion when she had persistent pain. She states Dr. Cota told her she has severe left hip arthritis but is too young for hip replacement. She has been seen in 3 different rheumatology offices, most recently the arthritis center on [facility]. They treated her for osteoarthritis and [...] MRI thoracic and lumbar spine 02/07/2022 at [facility] that shows mild multilevel degenerative changes, no [...] PM EDT Hospital Encounter Radiology Department - [address] [phone] Axillary lymphadenopathy Discharge Disposition: Home or Self Care 04/28/2025 3:00 PM EDT Office Visit Obstetrics and Gynecology - [address] [phone] Gabriella Carbajal, PA Encounter for gynecological examination [...] History Surgery Date Site/Laterality Comments SECTION PROCEDURE: AK DELIVERY ONLY OTHER SURGICAL HISTORY 2014 Left PROCEDURE: ARTHROSCOPY PROCEDURE NEC; COMMENT: arthroscopic surgery left hip, Dr. Cota TONSILLECTOMY ADENOIDECTOMY, BILATERAL MYRINGOTOMY AND TUBES 1989 PROCEDURE: AK TONSILLECTOMY & ADENOIDECTOMY <AGE 12; COMMENT: AK OTHER SURGICAL HISTORY 2007 PROCEDURE: AK LIG/TRNSXJ FLP TUBE ABDL/VAG APPR UNI/BI; COMMENT: [facility] WISDOM TOOTH EXTRACTION PROCEDURE: HISTORICAL WISDOM TEETH EXTRACTION OTHER SURGICAL HISTORY 06/15/2010 PROCEDURE: HYSTEROSCOPY, SURGICAL/SAMPLING; COMMENT: D&C Hysteroscopy OTHER SURGICAL HISTORY PROCEDURE: AK COLPOSCOPY CERVIX VAG ELTRD CONIZATION CERVIX HIP [...] care for your loved ones. For example, child care attendant school or elderly care for an older adult? [...] around neck with cord compression Delivery Location:[place] 005 Term 37w 0d 3175 g (112 oz) M CS-Un spec Epidur al N Livin g Complications:None Delivery Location:[place] Last Filed Vital Signs Vital Sign Reading [...] Twinrix 3-dose series) 02/08/2016 01/11/2016 COVID-19 Vaccine (3 - season) 2024 03/19/2021, 02/19/2021 Influenza Vaccine (#1) 2025 , 10/11/2023, 10/10/2021, Additional history exists Social Influencers of Health Screening 04/08/2026 04/08/2025 DTaP,Tdap,and Td Vaccines (2 - Td or Tdap) 01/12/2027 01/12/2017 Cervical Cancer Screening: HPV 04/28/2030 04/28/2025, 09/16/2020 Hepatitis A Vaccines Aged Out 01/11/2016 No long er eligible based on patient's age to complete this topic HIV Screening Completed 04/26/2017 Hepatitis C Screening Completed 04/26/2017 Depression Screening Completed 04/21/2025 HIB Vaccines Aged Out No longer eligi [...] 5 Years) and At-Risk Patients (6 to 49 Years) Aged Out No longer eligible based [...] Signed Date: 05/12/2025 07:47 ET Workstation ID: [id number] Transcribed By: Self Edit Transcribed Date: 05/12/2025 [...] Signed Date: 05/12/2025 07:47 ET Workstation ID: [id number] Transcribed By: Self Edit Transcribed Date: 05/12/2025 07:44 ET us Gabriella RUIZ IMG US PROCEDURES Final Resu lt * HPV with reflex genotype (04/28/2025 3:39 PM EDT) HPV Negative Negative LAB MICROBIOLOGY METHOD 04/30/2025 2:07 PM EDT [facility] Brushing/Spatula Cervix uteri structure / Unknown 04/28/2025 3:39 PM EDT 04/30/2025 7:57 AM EDT us Gabriella RUIZ LAB MOLECULAR DIAGNOSTICS OR DERABLES Final Result [facility] [address] [place] [id number], * Pap smear (04/28/2025 3:39 PM EDT) Interpretation Negative for intraepithelial lesion or malignancy 05/06/2025 10:25 AM EDT [facility] General Categorization Negative 05/06/2025 10:25 AM EDT [facility] LMP 04/01/2025 05/06/2025 10:25 AM EDT [facility] Specimen Adequacy Satisfactory for evaluation, endocervical/robb sformation zone component absent 05/06/2025 10:25 AM EDT [facility] Pap Methodology Liquid Based Pap Test 05/06/2025 10:25 AM EDT [facility] Disclaimer The Pap test is a screening test which carries an inherent false negative rate. These test results should be correlated with the patient's clinical findings and history. This Pap test was processed using an automated screening system. Technical cytopathology services provided by [facility], at [address] [place] [id number] (CLIA # [id number]/Mika Concepcion MD, Housekeeping Room Attendant.) 05/06/2025 10:25 AM EDT [facility] Console Pap Interpretation Reported 05/06/2025 10:25 AM EDT [facility] Brushing/Spatula Cervix uteri structure / Unknown 04/28/2025 3:39 PM EDT 04/28/2025 3:39 PM EDT Gabriella RUIZ LAB CYTOLOGY ORDERABLES Linn l Result [facility] [address] [place] [address], * HIV Screening (04/26/2017) HIV Screening abstracted Historical Provider HEALTH MAINTENANCE Final Result * Hepatitis C Screening (04/26/2017) Hepatitis C Screening abstracted Historical Provider HEALTH MAINTENANCE Final Result from Last 3 Months or Most Recently Relevant to Health Maintenance Insurance [facility] Advance Directives Documents on File Type Date Recorded Patient Marketing Consultant Expl anation Health Care Decision (hx) 02/02/2023 AD LINDO DIRECTIVE Health Care Decision (hx) 02/02/2023 AD LINDO DIRECTIVE Health Care Decision (hx) 02/02/2023 AD LINDO DIRECTIVE Care Teams Psychiatric Nurse Practitioner Relationship Specialty Start Date End Date Michael Noland MD [address] [place] [address] [address] [facility] [place] [address] PCP - General 02/19/08
--- OUTSIDE RECORDS SUMMARY | 2025-06-11 10:18 | XMS_ITS | Clinical Summary ---
Author Organization [facility] Address [address] [place] [address] Care Team Providers Care Body Shop Mechanic Name Role Phone Michael Noland MD Primary Care Provider [phone] Allergies No known active allergies Medications Medication Sig Dispensed Refills Start Date End Date Status Cholecalciferol (Dialyvite Vitamin D3 Max) 1.25 MG (14725 UT) TABS Take 1 tablet by mouth [...] Twinrix 3-dose series) 02/08/2016 01/11/2016 Influenza Vaccine (#1) 2025 9, 08/26/2018, 09/03/2017 DTap / Tdap / Td (2 - Td or Tdap) 01/12/2027 01/12/2017 Pneumococcal Vaccine Aged Out No long er eligible based on patient's age to complete this topic RSV Ped < 20 months Aged Out No longe r eligible based on patient's age to complete this topic Care Teams Body Shop Mechanic Relationship Specialty Start Date End Date Michael Noland MD [address] [place] [address] [address] [facility] [place] [address] PCP - General Internal Medicine 09/05/22
--- OUTSIDE RECORDS SUMMARY | 2025-06-11 10:18 | XMS_ITS | Data Portability ---
Author Organization [facility], [facility] Address [address] [place] [address] Care Team Providers Care Train Control Technician Name Role Phone PAULO SNOW Primary Care Provider [phone] Assessment Encounter Date Assessment Date Assessment LastModified [...] see one of my colleagues at the [facility] performing hip replacement for a [...] hip, w/o contrast - APPROVED - AUTH #[id number] GOOD FROM 02/06/19 - 05/07/19. YOON RHODES PLEASE CALL TO PT TO SCHEDULE APPT Dx: s/p left hip arthrscopy Px: left hip MRI, assess for loose bodies, AVN, and labral pathology 2018 019 [facility] Central Scheduling, [address] [facility], [place], [address], 9 08:58:44 Medication Orders None recorded. Patient [...] teral No observ ation record ed. [email or web address] [facility] [address] [facility], [place], [address], 02/03/2019 10:09:44 02/04/20 19 08/25/2014 intra -kira cular injec tion (PROC ) No observ ation record ed. [email or web address] Not Available 02/05 10:56:54 02/04/20 19 06/16/2014 XR, hip, bilat eral, 2 view No observ ation record ed. [email or web address] Not Available 2018 07:56:14 02/04/20 19 09/10/2014 MRI, hip, w/o contr ast No observ ation record ed. [email or web address] Not Available 2018 07:57:13 02/26/20 19 MRI, hip, w/o contr ast No observ ation record ed. [email or web address] [facility] Central Scheduling [address] [facility], [place], [address], 02/26/2019 12:27:20 Result Notes Documentation Provider Name and Address Organization Details Recorded Time Xr, Hip, Unilateral : Maye Nicolegaby tobin [facility] 02/03/2019 10:09:44 Procedures Surgical History Date Name Laterality Status Provider Name and Address Organization Details Recorded Time 8 Other completed Donovan Fang [facility] 02/03/2019 09:26:33 5 Orthopaedic Surgery completed Donovan Fang [facility] 02/03/2019 09:26:05 Imaging Results None recorded. Procedure [...] Updated DateTime 02/03/2019 162.56 cm 30.9 kg/m2 72554.63 g Donovan Fang [facility] 02/03/2019 09:23:49 Date Recorded Body height Body mass index (BMI) Body weight Provider Name and Address Organization Details Last Updated DateTime 03/31/2019 162.56 cm 30.9 kg/m2 36619.63 g Rylee Guthrie [facility] 03/31/2019 07:56:31 Social History Question Answer Notes LastModified by Remote Assistant Details LastModified Time Tobacco Smoking Status Never Smoker Donovan tobin [facility] 02/03/2019 09:24:29 Auto Related Injury? No Information [...] Functional Status Question Answer Note LastModified by Remote Assistant Details LastModified Time What is your level [...] Asthma / Shortness of Breath / Sleep Cigar Roller ea (please specify) N Pulmonary Embolism N Gynecological HistoryNo gynecological history recorded. Obstetrics History GPAL:G 0 P 0 0 0 0 Past Encounters Encounter ID Performer Location Encounter Start Date Encounter Closed Date Diagnosis/Indication Diagnosis SNOMED-CT Code Diagnosis ICD10 Code Diagnosis Note [id number] DIEGO RUIZ MD [facility] Office [address] [place], [place] [id number] 02/03/2019 09:20:23 02/03/2019 10:54:28 Complete tear, hip ligament 575477208 S73.192D [id number] DIEGO RUIZ MD [facility] Office [address] [place] [address] 1 03/31/2019 07:42:32 03/31/2019 08:29:41 Osteoarthritis of hip 223995737 M16.12 Health Concerns Section Related Observation LastModified by Organization Detai ls LastModified Time None Recorded Concern Status LastModified by Organization Details LastModified Time None Recorded Advance Directives Directive None Recorded Payers Insurance Date Sequence Insurance Name Policy Number Policy Mcclain Covered Member ID Mcclain Member ID Guarantor Name 04/08/2019 1 [facility] [id number] Tiffanie Lorenzana [id number] Tiffanie Lorenzana Notes Date Note Type Note Provider Name and Address Organization Details Recorded Time 9 text/html CHIEF COMPLAINT: Left hip pain. 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 She is status post left hip arthroscopy with femoroplasty by Dr. Cota at [facility] in April 2015. Apparently no labral [...] any fevers or chills. DIEGO RUIZ MD [address] [place] [address], [phone], [facility] 02/06/2019 08:45:55 9 text/html CHIEF COMPLAINT: Left [...] the head neck junction. DIEGO RUIZ MD [address] [place] [address], [phone], [facility] 04/03/2019 12:37:05 OBGyn Episode No OBEpisode recorded.
--- OUTSIDE RECORDS SUMMARY | 2025-06-11 10:18 | XMS_ITS | Patient Health Record ---
Author Organization [facility] Address [address] [place] [address] Care Team Providers Care Client Technical Specialist Name Role Phone Michael Noland Primary Care Provider Jacquie Blakely Unavailable [phone] Allergies No Known Allergies Reason For Referral [...] Status Risk Notes Problem Acquired hallux valgus (77025005) Hallux valgus (acquired), left foot (M20.12) Active confirmed Problem Acquired hallux valgus (74958670) Hallux valgus (acquired), right foot (M20.11) Active [...] Insured Coverage Start Date Coverage End Date [facility] [address] [place] [address] [id number] Tiffanie Lorenzana Self - patient is the insured Medical (General) History Medical History History ICD Code Anxiety Arthritis Back,Hip,and Knee pain Fibromyalgia Thyroid disorder Chicken pox Anemia PCOS iron and vitamin D deficiency Surgical History Surgery Date(Month/Year) tonsillectomy 1988 tubal ligation 2007 wisdom teeth extraction 1997 section x2 2003 Left Hip Surgery 2015 cervix surgery
== END 2025-06-11 10:46 | disposition home or self-care (01) ==
LOC: HO.ENCR 09:53
PROVIDERS: PCP Internal Medicine; Visit Provider Student in an Organized Health Care Education/Training Program
DX: E03.8 Other specified hypothyroidism (principal); E06.3 Autoimmune thyroiditis
CPT/HCPCS: 99204

== ENCOUNTER → 2025-06-12 13:30 | Outpatient (BNV) | payer OTHER, SELFPAY | PROVIDERS: PCP Internal Medicine; Visit Provider Internal Medicine | DX: N63.10 Unspecified lump in the right breast, unspecified quadrant (principal) | CPT/HCPCS: 77049 ==

== ENCOUNTER 2025-06-12 13:35 | Outpatient (REF) | payer OTHER, SELFPAY ==
--- NOTE | ~2025-06-12 | MR_ITS ---
EXAMINATION: MR BREAST WITHOUT AND WITH CONTRAST, BILATERAL CLINICAL INFORMATION: Right breast palpable lump and tenderness with negative mammogram and ultrasound November 2024. COMPARISON: Comparison is made with relevant prior imaging. TECHNIQUE: MR imaging of the breast was performed using T1, T2 and fat saturated techniques. Dynamic multiphase imaging was also performed after the administration of intravenous gadolinium contrast agent. Computer generated 3D reconstruction and enhancement kinetic analysis was ulitized by the radiologist in the interpretation of this examination. FINDINGS: Breast composition: Heterogeneous fibroglandular breast tissue Background parenchymal enhancement: Marked LEFT BREAST: No suspicious enhancing masses or areas of non mass enhancement. No axillary or internal mammary adenopathy. RIGHT BREAST: No suspicious enhancing masses or areas of non mass enhancement. No axillary or internal mammary adenopathy. Limited views of the chest and abdomen are unremarkable. MR/MR breast BI wo/w con IMPRESSION: No MRI evidence of malignancy bilateral breasts. No MRI abnormal finding to account for the patient's right breast palpable lump. Recommend clinical evaluation follow-up. ASSESSMENT: LEFT BREAST: BI-RADS 1-Negative RIGHT BREAST: BI-RADS 1-Negative RECOMMENDATIONS: Yearly screening mammography Yearly Breast MRI screening surveillance. Electronically signed by: Mehreen Arias DO 06/16/2025 04:48 PM EDT
--- OUTSIDE RECORDS SUMMARY | 2025-06-12 13:38 | XMS_ITS | Data Portability ---
Author Organization [place] - [facility], [facility] - INPATIENT Address [address] [place] [address] Care Team Providers Care Director Investment Banking Name Role Phone PAULO SNOW Primary Care [...] see one of my colleagues at the [facility] performing hip replacement for a discussion [...] hip, w/o contrast - APPROVED - AUTH #[id number] GOOD FROM 02/06/19 - 05/07/19. YOON RHODES PLEASE CALL TO PT TO SCHEDULE APPT Dx: s/p left hip arthrscopy Px: left hip MRI, assess for loose bodies, AVN, and labral pathology 2018 019 [facility] Central Scheduling, [address] [facility], [place], [address], 9 08:58:44 Medication Orders None recorded. Patient [...] teral No observ ation record ed. [email or web address] [facility] [address] [facility], [place], [address], 02/03/2019 10:09:44 02/04/20 19 08/25/2014 intra -kira cular injec tion (PROC ) No observ ation record ed. [email or web address] Not Available 02/05 10:56:54 02/04/20 19 06/16/2014 XR, hip, bilat eral, 2 view No observ ation record ed. [email or web address] Not Available 2018 07:56:14 02/04/20 19 09/10/2014 MRI, hip, w/o contr ast No observ ation record ed. [email or web address] Not Available 2018 07:57:13 02/26/20 19 MRI, hip, w/o contr ast No observ ation record ed. [email or web address] [facility] Central Scheduling [address] [facility], [place], [address], 02/26/2019 12:27:20 Result Notes Documentation Provider Name and Address Organization Details Recorded Time Xr, Hip, Unilateral : Maye Nicolegaby tobin [facility] 02/03/2019 10:09:44 Procedures Surgical History Date Name Laterality Status Provider Name and Address Organization Details Recorded Time 8 Other completed Donovan Fang [facility] 02/03/2019 09:26:33 5 Orthopaedic Surgery completed Donovan Fang [facility] 02/03/2019 09:26:05 Imaging Results None recorded. Procedure [...] Updated DateTime 02/03/2019 162.56 cm 30.9 kg/m2 92522.63 g Donovan Fang [facility] 02/03/2019 09:23:49 Date Recorded Body height Body mass index (BMI) Body weight Provider Name and Address Organization Details Last Updated DateTime 03/31/2019 162.56 cm 30.9 kg/m2 15021.63 g Rylee Guthrie [facility] 03/31/2019 07:56:31 Social History Question Answer Notes LastModified by [employer] Details LastModified Time Tobacco Smoking Status Never Smoker Donovan tobin [facility] 02/03/2019 09:24:29 Auto Related Injury? No Information [...] Functional Status Question Answer Note LastModified by [employer] Details LastModified Time What is your level [...] Condition Response Blood Clots / Phlebitis N HIV or AIDS N Heart Problems N High Blood Pressure N Depression or Anxiety Y Irregular Heartbeat N MRSA N Any Other Significant Medical Issues Y Emphysema / Chronic Bronchitis N Reaction to General/Local Anesthesia N Weight Gain / Loss Y Hepatitis / Jaundice N Kidney / Bladder Infections N Diabetes N Bleeding Disorder N Hearing Loss N Angina, Heart Failure or Attack N Seizures / Epilepsy N Night Sweats N Osteoarthritis / Rheumatoid arthritis / Other Y Cancer N Stroke N Chemical Dependency / Alcoholism N Ulcer / Stomach Bleeding / Indigestion N Visual Loss or Glaucoma N Thyroid Disorder Y Psoriasis / Skin Rash N Heart Disease N Pulmonary Embolism N Asthma / Shortness of Breath / Sleep Liability Claims Examiner ea (please specify) N Gynecological HistoryNo gynecological history recorded. Obstetrics History GPAL:G 0 P 0 0 0 0 Past Encounters Encounter ID Performer Location Encounter Start Date Encounter Closed Date Diagnosis/Indication Diagnosis SNOMED-CT Code Diagnosis ICD10 Code Diagnosis Note [id number] DIEGO RUIZ MD [facility] Office [address] [place], [place] [phone] 02/03/2019 09:20:23 02/03/2019 10:54:28 Complete tear, hip ligament 523313090 S73.192D [id number] DIEGO RUIZ MD [facility] Office [address] [place] [address] 1 03/31/2019 07:42:32 03/31/2019 08:29:41 Osteoarthritis of hip 578250519 M16.12 Health Concerns Section Related Observation LastModified by Organization Detai ls LastModified Time None Recorded Concern Status LastModified by Organization Details LastModified Time None Recorded Advance Directives Directive None Recorded Payers Insurance Date Sequence Insurance Name Policy Number Policy Cmclain Covered Member ID Mcclain Member ID Guarantor Name 04/08/2019 1 [facility] [id number] Tiffanie Lorenzana [id number] Tiffanie Lorenzana Notes Date Note Type Note Provider Name and Address Organization Details Recorded Time 9 text/html CHIEF COMPLAINT: Left hip pain. 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 She is status post left hip arthroscopy with femoroplasty by Dr. Cota at [facility] in April 2015. Apparently no labral [...] any fevers or chills. DIEGO RUIZ MD [address] [place] [address], [phone], [facility] 02/06/2019 08:45:55 9 text/html CHIEF COMPLAINT: Left [...] the head neck junction. DIEGO RUIZ MD [address] [place] [address], [phone], [facility] 04/03/2019 12:37:05 OBGyn Episode No OBEpisode recorded.
--- OUTSIDE RECORDS SUMMARY | 2025-06-12 13:38 | XMS_ITS | Clinical Summary ---
Author Organization [facility] Address [address] [place] [address] Care Team Providers Care Production Generalist Name Role Phone Michael Noland MD Primary Care Provider [phone] Allergies No known active allergies Medications Medication Sig Dispensed Refills Start Date End Date Status Cholecalciferol (Dialyvite Vitamin D3 Max) 1.25 MG (60210 UT) TABS Take 1 tablet by mouth [...] age to complete this topic Care Teams Production Generalist Relationship Specialty Start Date End Date Michael Noland MD [address] [place] [address] [address] [facility] [place] [address] PCP - General Internal Medicine 09/05/22
--- OUTSIDE RECORDS SUMMARY | 2025-06-12 13:38 | XMS_ITS | Clinical Summary ---
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 She had arthroscopic left hip surgery with Dr. Cota a few years ago, then she went to [place] (Dr. Ruiz) for a second opinion when she had persistent pain. She states Dr. Cota told her she has severe left hip arthritis but is too young for hip replacement. She has been seen in 3 different rheumatology offices, most recently the arthritis center on [facility]. They treated her for osteoarthritis and [...] MRI thoracic and lumbar spine 02/07/2022 at [facility] that shows mild multilevel degenerative changes, no [...] PM EDT Hospital Encounter Radiology Department - [address] [phone] Axillary lymphadenopathy Discharge Disposition: Home or Self Care 04/28/2025 3:00 PM EDT Office Visit Obstetrics and Gynecology - [address] [phone] Gabriella Carbajal, PA Encounter for gynecological examination [...] History Surgery Date Site/Laterality Comments SECTION PROCEDURE: [place] DELIVERY ONLY OTHER SURGICAL HISTORY 2014 Left PROCEDURE: ARTHROSCOPY PROCEDURE NEC; COMMENT: arthroscopic surgery left hip, Dr. Cota TONSILLECTOMY ADENOIDECTOMY, BILATERAL MYRINGOTOMY AND TUBES 1989 PROCEDURE: [place] TONSILLECTOMY & ADENOIDECTOMY <AGE 12; COMMENT: [place] OTHER SURGICAL HISTORY 2007 PROCEDURE: [place] LIG/TRNSXJ FLP TUBE ABDL/VAG APPR UNI/BI; COMMENT: [facility] WISDOM TOOTH EXTRACTION PROCEDURE: HISTORICAL WISDOM TEETH EXTRACTION OTHER SURGICAL HISTORY 06/15/2010 PROCEDURE: HYSTEROSCOPY, SURGICAL/SAMPLING; COMMENT: [facility] Hysteroscopy OTHER SURGICAL HISTORY PROCEDURE: [place] COLPOSCOPY CERVIX VAG ELTRD CONIZATION CERVIX HIP [...] care for your loved ones. For example, director child abuse therapy or elderly care for an older adult? [...] around neck with cord compression Delivery Location:[facility] [place] 005 Term 37w 0d 3175 g (112 oz) M CS-Un spec Epidur al N Livin g Complications:None Delivery Location:[facility] [place] Last Filed Vital Signs Vital Sign Reading [...] Signed Date: 05/12/2025 07:47 ET Workstation ID: [id number] Transcribed By: Self Edit Transcribed Date: 05/12/2025 [...] Signed Date: 05/12/2025 07:47 ET Workstation ID: [id number] Transcribed By: Self Edit Transcribed Date: 05/12/2025 07:44 ET us Gabriella RUIZ IMG US PROCEDURES Final Resu lt * HPV with reflex genotype (04/28/2025 3:39 PM EDT) HPV Negative Negative LAB MICROBIOLOGY METHOD 04/30/2025 2:07 PM EDT [facility] Brushing/Spatula Cervix uteri structure / Unknown 04/28/2025 3:39 PM EDT 04/30/2025 7:57 AM EDT us Gabriella RUIZ LAB MOLECULAR DIAGNOSTICS OR DERABLES Final Result [facility] [address] [place] [address], * Pap smear (04/28/2025 3:39 PM EDT) Interpretation Negative for intraepithelial lesion or malignancy 05/06/2025 10:25 AM EDT [facility] General Categorization Negative 05/06/2025 10:25 AM EDT [facility] LMP 04/01/2025 05/06/2025 10:25 AM EDT [facility] Specimen Adequacy Satisfactory for evaluation, endocervical/robb sformation zone component absent 05/06/2025 10:25 AM EDT [facility] Pap Methodology Liquid Based Pap Test 05/06/2025 10:25 AM EDT [facility] Disclaimer The Pap test is a screening test which carries an inherent false negative rate. These test results should be correlated with the patient's clinical findings and history. This Pap test was processed using an automated screening system. Technical cytopathology services provided by [facility], at [address] [place] [address] (CLIA # [id number]/Mika Concepcion MD, [employer] Sergeant.) 05/06/2025 10:25 AM EDT [facility] Console Pap Interpretation Reported 05/06/2025 10:25 AM EDT [facility] Brushing/Spatula Cervix uteri structure / Unknown 04/28/2025 3:39 PM EDT 04/28/2025 3:39 PM EDT Gabriella RUIZ LAB CYTOLOGY ORDERABLES Linn l Result [facility] [address] [place] [address], * HIV Screening (04/26/2017) HIV Screening abstracted Historical Provider HEALTH MAINTENANCE Final Result * Hepatitis C Screening (04/26/2017) Hepatitis C Screening abstracted Historical Provider HEALTH MAINTENANCE Final Result from Last 3 Months or Most Recently Relevant to Health Maintenance Insurance [facility] Advance Directives Documents on File Type Date Recorded Patient Press And Blow Machine Tender Expl anation Health Care Decision (hx) 02/02/2023 AD LINDO DIRECTIVE Health Care Decision (hx) 02/02/2023 AD LINDO DIRECTIVE Health Care Decision (hx) 02/02/2023 AD LINDO DIRECTIVE Care Teams Precision Aircraft Structure Assembler Relationship Specialty Start Date End Date Michael Noland MD [address] [place] [address] [address] [facility] [place] [address] PCP - General 02/19/08
--- OUTSIDE RECORDS SUMMARY | 2025-06-12 13:39 | XMS_ITS | Patient Health Record ---
Author Organization [facility] Address [address] [place] [address] Care Team Providers Care Sfdc Solution Architect Name Role Phone Michael Noland Primary Care Provider Jacquie Blakely Unavailable [phone] Allergies No Known Allergies Reason For Referral [...] Status Risk Notes Problem Acquired hallux valgus (63400770) Hallux valgus (acquired), left foot (M20.12) Active confirmed Problem Acquired hallux valgus (97459023) Hallux valgus (acquired), right foot (M20.11) Active [...] Insured Coverage Start Date Coverage End Date [facility] [address] [place] [address] [id number] Tiffanie Lorenzana Self - patient is the insured Medical (General) History Medical History History ICD Code Anxiety Arthritis Back,Hip,and Knee pain Fibromyalgia Thyroid disorder Chicken pox Anemia PCOS iron and vitamin D deficiency Surgical History Surgery Date(Month/Year) tonsillectomy 1988 tubal ligation 2007 wisdom teeth extraction 1997 section x2 2003 Left Hip Surgery 2015 cervix surgery
== END 2025-06-12 13:36 | disposition home or self-care (01) ==
LOC: HO.MRI 13:35
PROVIDERS: PCP Internal Medicine; Visit Provider Surgery
DX: N63.10 Unspecified lump in the right breast, unspecified quadrant (principal); R92.30 Dense breasts, unspecified
CPT/HCPCS: 77049; A9585

== ENCOUNTER 2025-08-07 15:58 | Outpatient (REF) | payer OTHER, SELFPAY ==
[2025-08-07 16:10] LABS: MANUAL DIFF FLAG NO
[2025-08-07 16:55] LABS: Hematocrit 32.3 % (37.0-47.0); Hemoglobin 10.9 g/dl (12.0-16.0); Imm Gran Abs Auto 0.02 X10*3/uL (0.00-0.03); Imm Gran Pct Auto 0.3 % (0.0-0.4); Lymphocytes Absolute Auto 1.7 X10*3/uL (1.2-4.9); Mean Corpuscular HGB Conc 33.7 g/dl (31.0-35.0); Mean Corpuscular Hemoglobin 27.1 pg (27.0-33.0); Mean Corpuscular Volume 80.3 fL (80.0-98.0); NRBC Abs Auto 0.000 X10*3/uL (0.0-0.012); NRBC Pct Auto 0.0 /100WBC (0.0-0.2); Platelet Count 370 X10*3/uL (160-400); Red Blood Count 4.02 X10*6/uL (4.20-5.50); Reticulocytes Absolute 0.102 X10*6/uL (0.026-0.095); White Blood Count 7.4 X10*3/uL (4.8-10.8)
[2025-08-07 17:28] LABS: Iron 34 mcg/dL (30-160); Percent Iron Saturation 8 % (15-50); Total Iron Binding Capacity 448 mcg/dL (228-428); Unsaturated Iron Binding 414 ug/dL
[2025-08-07 17:45] LABS: Ferritin 9 ng/mL (10-250)
[2025-08-07 17:48] LABS: Free T4 (Free Thyroxine) 1.07 ng/dL (0.71-1.85); Thyroid Stimulating Hormone 1.32 uIU/mL (0.32-4.0)
--- OUTSIDE RECORDS SUMMARY | 2025-08-07 17:48 | XMS_ITS | Clinical Summary ---
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 She had arthroscopic left hip surgery with Dr. Cota a few years ago, then she went to [place] (Dr. Ruiz) for a second opinion when she had persistent pain. She states Dr. Cota told her she has severe left hip arthritis but is too young for hip replacement. She has been seen in 3 different rheumatology offices, most recently the arthritis center on [facility]. They treated her for osteoarthritis and fibromyalgia. [...] MRI thoracic and lumbar spine 02/07/2022 at [facility] that shows mild multilevel degenerative changes, no [...] PM EDT Hospital Encounter Radiology Department - [address] [address] Axillary lymphadenopathy Discharge Disposition: Home or Self Care from Last 3 Months Immunizations Name Administration Dates Next Due Hepatitis A-Hepatitis B Adul t (Twinrix) 18yo and older 01/11/2016 Influenza trivalent, with pr eservative (Fluzone; Afluria) 6mo and older 09/04/2019,08/26/2018,09/03/2017 Tdap Tetanus diptheria acell ular pertussis (Boostrix; Adacel) 7yo and older 01/12/2017 Surgical History Surgery Date Site/Laterality Comments SECTION PROCEDURE: [place] DELIVERY ONLY OTHER SURGICAL HISTORY 2014 Left PROCEDURE: ARTHROSCOPY PROCEDURE NEC; COMMENT: arthroscopic surgery left hip, Dr. Cota TONSILLECTOMY ADENOIDECTOMY, BILATERAL MYRINGOTOMY AND TUBES 1989 PROCEDURE: [place] TONSILLECTOMY & ADENOIDECTOMY <AGE 12; COMMENT: [place] OTHER SURGICAL HISTORY 2007 PROCEDURE: [place] LIG/TRNSXJ FLP TUBE ABDL/VAG APPR UNI/BI; COMMENT: [facility] WISDOM TOOTH EXTRACTION PROCEDURE: HISTORICAL WISDOM TEETH EXTRACTION OTHER SURGICAL HISTORY 06/15/2010 PROCEDURE: HYSTEROSCOPY, SURGICAL/SAMPLING; COMMENT: [facility] Hysteroscopy OTHER SURGICAL HISTORY PROCEDURE: [place] COLPOSCOPY CERVIX VAG ELTRD CONIZATION CERVIX HIP [...] for your loved ones. For example, child daycare worker or elderly care for an older adult? [...] cord around neck with cord compression Delivery Location:[facility] [place] 005 Term 37w 0d 3175 g (112 oz) M CS-Un spec Epidur al N Livin g Complications:None Delivery Location:[facility] [place] Last Filed Vital Signs Vital Sign Reading [...] Hep B Twinrix 3-dose series) 02/08/2016 01/11/2016 Colorectal Cancer Screening: Colonoscopy 11/04/2022 COVID-19 Vaccine (3 - 2024- season) 2025 03/19/2021, 02/19/2021 Influenza Vaccine (#1) 2025 , [...] Routine 05/07/2025 2:47 PM EDT Axillary lymphadenopathy HPV WITH REFLEX GENOTYPE Routine 04/28/2025 3:39 [...] Signed Date: 05/12/2025 07:47 ET Workstation ID: [id number] Transcribed By: Self Edit Transcribed Date: 05/12/2025 [...] Signed Date: 05/12/2025 07:47 ET Workstation ID: [id number] Transcribed By: Self Edit Transcribed Date: 05/12/2025 07:44 ET us Gabriella RUIZ IMG US PROCEDURES Final Resu lt * HPV with reflex genotype (04/28/2025 3:39 PM EDT) HPV Negative Negative LAB MICROBIOLOGY METHOD 04/30/2025 2:07 PM EDT [facility] Brushing/Spatula Cervix uteri structure / Unknown 04/28/2025 3:39 PM EDT 04/30/2025 7:57 AM EDT Gabriella RUIZ LAB MOLECULAR DIAGNOSTICS OR DERABLES Final Result [facility] [address] [place] [address], * HIV Screening (04/26/2017) HIV Screening abstracted Historical Provider HEALTH MAINTENANCE Final Result * Hepatitis C Screening (04/26/2017) Hepatitis C Screening abstracted Historical Provider HEALTH MAINTENANCE Final Result from Last 3 Months or Most Recently Relevant to Health Maintenance Insurance [facility] Advance Directives Documents on File Type Date Recorded Patient Culinary Specialist Expl anation Health Care Decision (hx) 02/02/2023 AD LINDO DIRECTIVE Health Care Decision (hx) 02/02/2023 AD LINDO DIRECTIVE Health Care Decision (hx) 02/02/2023 AD LINDO DIRECTIVE Care Teams Dryerman/Woman Relationship Specialty Start Date End Date Michael Noland MD [address] [facility] [address] [facility] [place] [address] PCP - General 02/19/08
--- OUTSIDE RECORDS SUMMARY | 2025-08-07 17:48 | XMS_ITS | Patient Health Record ---
Author Organization [facility] Address [address] [place] [address] Care Team Providers Care Strap Buckler Machine Name Role Phone Michael Noland Primary Care Provider Jacquie Blakely Unavailable [phone] Allergies No Known Allergies Reason For Referral [...] Status Risk Notes Problem Acquired hallux valgus (46257483) Hallux valgus (acquired), left foot (M20.12) Active confirmed Problem Acquired hallux valgus (56635053) Hallux valgus (acquired), right foot (M20.11) Active [...] Insured Coverage Start Date Coverage End Date [facility] [address] [place] [address] [id number] Tiffanie Lorenzana Self - patient is the insured Medical (General) History Medical History History ICD Code Anxiety Arthritis Back,Hip,and Knee pain Fibromyalgia Thyroid disorder Chicken pox Anemia PCOS iron and vitamin D deficiency Surgical History Surgery Date(Month/Year) tonsillectomy 1988 tubal ligation 2007 wisdom teeth extraction 1997 section x2 2003 Left Hip Surgery 2015 cervix surgery
--- OUTSIDE RECORDS SUMMARY | 2025-08-07 17:48 | XMS_ITS | Clinical Summary ---
Author Organization [facility] Address [address] [place] [address] Care Team Providers Care Key Operator Name Role Phone Michael Noland MD Primary Care Provider [phone] Allergies No known active allergies Medications Medication Sig Dispensed Refills Start Date End Date Status Cholecalciferol (Dialyvite Vitamin D3 Max) 1.25 MG (04556 UT) TABS Take 1 tablet by mouth [...] Hep B Twinrix 3-dose series) 02/08/2016 01/11/2016 Colon Cancer Screening (Colonoscopy) 2025 Influenza Vaccine (#1) 2025 9, 08/26/2018, 09/03/2017 DTap / Tdap / Td (2 - Td or Tdap) 01/12/2027 01/12/2017 Pneumococcal Vaccine Aged Out No long er eligible based on patient's age to complete this topic RSV Ped < 20 months Aged Out No longe r eligible based on patient's age to complete this topic Care Teams Key Operator Relationship Specialty Start Date End Date Michael Noland MD [address] [place] [address] [address] [facility] [place] [address] PCP - General Internal Medicine 09/05/22
[2025-08-07 17:55] LABS: Folate 10.7 ng/mL (> or = 4.0); Vitamin B12 363 pg/mL (200-900)
== END 2025-08-07 15:59 | disposition home or self-care (01) ==
LOC: HO.LAB 15:58
PROVIDERS: PCP Internal Medicine; Visit Provider Student in an Organized Health Care Education/Training Program
DX: E06.3 Autoimmune thyroiditis (principal); E55.9 Vitamin D deficiency, unspecified; E03.8 Other specified hypothyroidism
CPT/HCPCS: 36415; 82306; 82607; 82728; 82746; 83540; 84439; 84443; 85025; 85045

== ENCOUNTER 2025-08-10 15:29 | Outpatient (AMB) | payer OTHER, SELFPAY ==
[2025-08-10 15:32] VITALS: BP 114/76; PULSE 80; O2SAT 99; BMI 32.7
--- NOTE | 2025-08-10 15:32 | MHC.OFFVIS ---
Vital Signs 08/10/25 15:32 Height 5 ft 4 in Weight 190 lb 4.143 oz BMI 32.7 BP 114/76 Blood Pressure Location Lt brachial Position Sitting Pulse 80 Pulse Source Pulse Oximeter Pulse Oximetry (%) 99 Oxygen Delivery Method Room Air Intake Visit Reasons: Other specified hypothyroidism Intake Note: Patient present today for Other specified hypothyroidism office visit. Security Risk Analyst Required: No Accompanied by: Self / Same As Patient Allergies No Known Allergies (No Known Allergies*) Allergy (Verified 08/10/25 15:35) Medication List - Last Reconciled 08/10/25 by Tania Aranda MD ascorbic acid (vitamin C) 500 mg PO .QD 30 days cane As directed cholecalciferol (vitamin D3) 50 mcg PO DAILY 30 days duloxetine (Cymbalta) 20 mg PO BID ferrous sulfate (Feosol) 325 mg PO BID Levoxyl (levothyroxine) 100 mcg PO DAILY NS lidocaine 5% (Lidoderm) 1 patch topical DAILY HPI Comments Details: 45 -year-old female, here today for follow up of hypothyroidism. . 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 She is currently on Levoxyl 88 mcg daily. she was on generic for sometime but per patient it was ineffective for her , with persistent symptoms of tiredness, joint aches. so then she was switched to Levoxyl [facility] has worked better for her. 100% compliance with LT 4, good method of administration. Denies cold intolerance, stable weight, monthly periods, no diarrhea,no constipation,, denies dysphagia, dyspnea, dysphonia, denies tremors, palpitations, reports tiredness, muscle aches. Reports hair loss. Most recent blood work from 04/15/2025: TSH elevated at 5.26, free T4 0.91 Ultrasound thyroid 05/14/2025 shows a heterogenous gland as you would suspect in Adan's thyroiditis, with a right midpole subcentimeter TR 3 nodule that does not need follow up. No personal history of head or neck radiation. 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 Quit smoking 2000 , smoked for a couple of years Alcohol socially No drug use Interval history 06/11/2025 Levoxyl increased from 88 mcg daily to 100 mcg daily 08/07/2025: TSH 1.32, free T4 1.07 Physical exam General: sitting comfortably in no acute distress HEENT: normocephalic/atraumatic, Neck: supple, symmetrical, no thyromegaly , no dorsocervical or supraclavicular fat pads Cardiac: normal heart sounds Pulm: normal breath sounds B/L, no added breath sounds Abd: not distended, no tenderness Extremities: no edema, no signs of myxedema Laboratory Tests 10/08/24 04/15/25 06:41 06:07 TSH 2.16 5.26 H Free T4 1.02 0.91 Laboratory Tests 08/07/25 16:10 TSH 1.32 Free T4 1.07 01/14/18 TPO 1683 TG ab 240. US THYROID 05/14/25 CLINICAL INFORMATION: Hypothyroidism. COMPARISON: 09/03/2017. TECHNIQUE: Linear transducer grayscale and color Doppler examination with attention to the region of the thyroid. FINDINGS: SIZE: Measurements of the thyroid lobes and nodules are given in sagittal, anteroposterior and transverse dimensions respectively. Right Thyroid Lobe: 4.8 x 1.7 x 1.7 cm, volume 7.2 mL. (Previously 6.7 mL). Parenchyma: The gland echotexture is heterogeneous. Thyroid vascularity is increased. Left Thyroid Lobe: 4.7 x 1.4 x 1.8 cm, volume 6.0 mL. (Previously 9.3 mL) Parenchyma: The gland echotexture is heterogeneous. Thyroid vascularity is increased. Isthmus: 0.4 cm in maximum AP dimension. Estimated total number of nodules greater than or equal to 1 cm: 0. [employer] nodules are described as follows: 1. Location: Right mid pole. Size: 0.6 x 0.4 x 0.4 cm, volume 0.05 mL. Nodule characteristics: Composition: Solid (2). Echogenicity: Hyperechoic (1). Shape: Not taller than wide (0). Margins: Smooth (0). Echogenic Foci: None (0). ACR TI-RADS total points: 3 ACR TI-RADS category: 3 NODES: No lymphadenopathy is seen in the tissue surrounding the thyroid gland. Inferior to the left thyroid lobe, there is an oval hypoechoic nodule measuring 0.5 x 0.4 x 0.6 cm. This could be a small lymph node or possibly a parathyroid adenoma. US/US thyroid IMPRESSION: 1. Heterogeneous and hypervascular thyroid gland consistent with thyroiditis. 2. There is a 0.6 cm TR category 3 nodule in the right mid pole. No follow-up suggested. 3. Inferior to left thyroid lobe, there is an oval hypoechoic nodule measuring 5 x 4 x 6 mm. This could be a small lymph node or possibly a parathyroid adenoma. US thyroid 09/03/17 Right Thyroid Lobe: 4.7 x 1.6 x 1.7 cm, volume 6.7 ml. Left Thyroid Lobe: 5.3 x 1.6 x 2.1 cm, volume 9.3 ml. Isthmus: 0.4 cm in maximum AP dimension. PARENCHYMA: The gland echo texture is heterogeneous. Thyroid vascularity is increased. RIGHT THYROID LOBE: No nodules. ISTHMUS: No nodules. LEFT THYROID LOBE: No nodules. [facility] Medical History Anemia Obesity (BMI 30-39.9) Fibromyalgia Vitamin D deficiency Hypothyroidism Surgical History History of biopsy S/P LEEP (loop electrosurgical excision procedure) Hx of wisdom tooth extraction History of esophagogastroduodenoscopy (EGD) Hx of tonsillectomy Hx of tubal ligation Family History Father Cerebrovascular accident (CVA) Diabetes mellitus Depression Mental health disorder Lung cancer Mother Hypothyroidism Osteoporosis Fibromyalgia Hyperlipidemia Hypertension Depression Mental health disorder Sarcoma Maternal Aunt Thyroid cancer Maternal Uncle Liver cancer Social History Household Members: Spouse and Children Housing: House Are you a primary vp care management to a significant other at home: No Do you presently have visiting nurse or other home services: No Alcohol intake: current Alcohol intake frequency: a few times a week Alcohol type: wine Comment: 2 days weekend 3 glasses Patient Tobacco Use Status: Former Tobacco user Tobacco use type: Cigarette Years Smoked: 1999 quit e-Cigarette/Vaping Use: Never Used Second Hand Smoke Exposure: No service: No Current occupational status: employed Cognitive needs: No Hearing needs: No Vision needs: No Physical Exam Vital Signs: Last Vital Signs Pulse 80 08/10/25 15:32 BP 114/76 08/10/25 15:32 Pulse Ox 99 08/10/25 15:32 Oxygen Delivery Method Room Air 08/10/25 15:32 BMI result Body Mass Index 32.7 Assessment & Plan Assessment & Plan (1) Hypothyroidism: Code(s): E03.9 - Hypothyroidism, unspecified Category: Medical Qualifiers: Hypothyroidism type: due to Adan's thyroiditis Qualified Code(s): E03.8 - Other specified hypothyroidism; E06.3 - Autoimmune thyroiditis Plan: 44-year-old female coming in today for initial evaluation 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 Diagnosed in 2007. She is in the brand-name Levoxyl because generic levothyroxine which she was on for a couple of years was ineffective for her, with persistent symptoms of tiredness, joint aches. blood work from 04/15/2025: TSH elevated at 5.26, free T4 0.91 Ultrasound thyroid 05/14/2025 shows a heterogenous gland as you would suspect in Adan's thyroiditis, with a right midpole subcentimeter TR 3 nodule that does not need follow up. 06/11/2025 Levoxyl increased from 88 mcg daily to 100 mcg daily 08/07/2025: TSH 1.32, free T4 1.07 Overall she is very improved clinically as well per patient Plan: -continue Levoxyl 100 mcg daily. 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
--- OUTSIDE RECORDS SUMMARY | 2025-08-10 20:53 | XMS_ITS | Clinical Summary ---
Author Organization [facility] Address [address] [place] [address] Care Team Providers Care Instrument Technician Name Role Phone Michael Noland MD Primary Care Provider [phone] Allergies No known active allergies Medications Medication Sig Dispensed Refills Start Date End Date Status Cholecalciferol (Dialyvite Vitamin D3 Max) 1.25 MG (14627 UT) TABS Take 1 tablet by mouth [...] age to complete this topic Care Teams Instrument Technician Relationship Specialty Start Date End Date Michael Noland MD [address] [place] [address] [address] [facility] [place] [address] PCP - General Internal Medicine 09/05/22
--- OUTSIDE RECORDS SUMMARY | 2025-08-10 20:54 | XMS_ITS | Patient Health Record ---
Author Organization [facility] Address [address] [place] [address] Care Team Providers Care King Maker Name Role Phone Michael Noland Primary Care Provider Jacquie Blakely Unavailable [phone] Allergies No Known Allergies Reason For Referral [...] Status Risk Notes Problem Acquired hallux valgus (60172888) Hallux valgus (acquired), left foot (M20.12) Active confirmed Problem Acquired hallux valgus (27115110) Hallux valgus (acquired), right foot (M20.11) Active confirmed Plan Of Treatment Pending Test Test Name Order Date *Liver Function Test (LFT) 09/19/2022 *Liver Function Test (LFT) 11/28/2022 X ray : Foot, left 3V 09/19/2022 X ray : Foot, right 3V 09/19/2022 Next Appt Details Provider Name:Jacquie hung, 09/04/2025 12:30:00 PM, [address] [place] [address], [phone], Insurance Providers Payer Name Payer Address Payer Phone Subscriber Number Group Number Insured Name Patient Relationship to Insured Coverage Start Date Coverage End Date [facility] [address] [place] [address] [id number] Tiffanie Lorenzana Self - patient is the insured Medical (General) History Medical History History ICD Code Anxiety Arthritis Back,Hip,and Knee pain Fibromyalgia Thyroid disorder Chicken pox Anemia PCOS iron and vitamin D deficiency Surgical History Surgery Date(Month/Year) tonsillectomy 1988 tubal ligation 2008 wisdom teeth extraction 1997 section x2 2003 Left Hip Surgery 2015 cervix surgery
--- OUTSIDE RECORDS SUMMARY | 2025-08-10 20:54 | XMS_ITS | Clinical Summary ---
Author Organization [address] Address [address] [place] [id number] Phone Care Team Providers Care Technical Expert Name Role Phone Michael Noland MD Primary Care Provider [phone] Allergies No known active allergies Medications terbinafine [...] history of hip issues, trying PT, care technician, injections. She had arthroscopic left hip surgery with Dr. Cota a few years ago, then she went to [place] (Dr. Ruiz) for a second opinion when she had persistent pain. She states Dr. Cota told her she has severe left hip arthritis but is too young for hip replacement. She has been seen in 3 different rheumatology offices, most recently the arthritis center on [facility]. They treated her for osteoarthritis and fibromyalgia. [...] MRI thoracic and lumbar spine 02/07/2022 at [facility] that shows mild multilevel degenerative changes, no [...] prep done today. Will treat as indicated. Immunizations Name Administration Dates Next Due Hepatitis A-Hepatitis B Adul t (Twinrix) 18yo and older 01/11/2016 Influenza trivalent, with pr eservative (Fluzone; Afluria) 6mo and older 09/04/2019,08/26/2018,09/03/2017 Tdap Tetanus diptheria acell ular pertussis (Boostrix; Adacel) 7yo and older 01/12/2017 Surgical History Surgery Date Site/Laterality Comments SECTION PROCEDURE: HI DELIVERY ONLY OTHER SURGICAL HISTORY 2014 Left PROCEDURE: ARTHROSCOPY PROCEDURE NEC; COMMENT: arthroscopic surgery left hip, Dr. Cota TONSILLECTOMY ADENOIDECTOMY, BILATERAL MYRINGOTOMY AND TUBES 1989 PROCEDURE: HI TONSILLECTOMY & ADENOIDECTOMY <AGE 12; COMMENT: HI OTHER SURGICAL HISTORY 2007 PROCEDURE: HI LIG/TRNSXJ FLP TUBE ABDL/VAG APPR UNI/BI; COMMENT: [facility] WISDOM TOOTH EXTRACTION PROCEDURE: HISTORICAL WISDOM TEETH EXTRACTION OTHER SURGICAL HISTORY 06/15/2010 PROCEDURE: HYSTEROSCOPY, SURGICAL/SAMPLING; COMMENT: D&C Hysteroscopy OTHER SURGICAL HISTORY PROCEDURE: HI COLPOSCOPY CERVIX VAG ELTRD CONIZATION CERVIX HIP [...] care for your loved ones. For example, housekeeper child care or elderly care for an older adult? [...] around neck with cord compression Delivery Location:[facility] 005 Term 37w 0d 3175 g (112 oz) M CS-Un spec Epidur al N Livin g Complications:None Delivery Location:[facility] Last Filed Vital Signs Vital Sign Reading [...] Procedure Name Priority Date/Time Associated Diagnosis Comments HPV WITH REFLEX GENOTYPE Routine 04/28/2025 3:39 PM EDT Cervical cancer screening HEPATITIS C SCREENING Routine 04/26/2017 HIV SCREENING Routine 04/26/2017 from Last 3 Months or Most Recently Relevant to Health Maintenance Results * HPV with reflex genotype (04/28/2025 3:39 PM EDT) [facility] HPV Negative Negative LAB MICROBIOLOGY METHOD 04/30/2025 2:07 PM EDT [facility] Brushing/Spatula Cervix uteri structure / Unknown 04/28/2025 3:39 PM EDT 04/30/2025 7:57 AM EDT us Gabriella RUI[facility] LAB MOLECULAR DIAGNOSTICS OR DERABLES Final Result [facility] [address] [place] [address], * HIV Screening (04/26/2017) HIV Screening abstracted us Historical Provider HEALTH MAINTENANCE Final Result * Hepatitis C Screening (04/26/2017) Hepatitis C Screening abstracted us Historical Provider HEALTH MAINTENANCE Final Result from Last 3 Months or Most Recently Relevant to Health Maintenance Insurance [facility] Advance Directives Documents on File Type Date Recorded 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
== END 2025-08-10 15:44 | disposition home or self-care (01) ==
LOC: HO.ENCR 15:30
PROVIDERS: PCP Internal Medicine; Visit Provider Student in an Organized Health Care Education/Training Program
DX: E03.8 Other specified hypothyroidism (principal); E06.3 Autoimmune thyroiditis
CPT/HCPCS: 99213

== ENCOUNTER → 2025-10-19 15:40 | Outpatient (BNV) | payer OTHER, SELFPAY | PROVIDERS: PCP Internal Medicine; Referring Provider Internal Medicine; Visit Provider Internal Medicine | DX: D50.9 Iron deficiency anemia, unspecified (principal) | CPT/HCPCS: 99203 ==